=== PATIENT | male | born 1955 | race Caucasian/White ===

== ENCOUNTER 2017-07-03 14:03 | Inpatient (IN) | payer MEDICAID ==
[~2017-07-03] VITALS: Ht 185.4 cm; Wt 82.6 kg
[2017-07-03] MEDS ORDERED: MULT-35 PO (15:59)
[2017-07-03] MEDS ORDERED: METO-387 PO (15:59)
[2017-07-03] MEDS ORDERED: ASPI-999 PO (15:59)
[2017-07-03] MEDS ORDERED: CARB100T6 PO (15:59)
[2017-07-03] MEDS ORDERED: SITA1TBM4 PO (15:59)
[2017-07-03] MEDS ORDERED: TAMS0.4C98 PO (15:59)
[2017-07-03] MEDS ORDERED: LOVA20TA2 PO (15:59)
[2017-07-03] MEDS ORDERED: PIOG15TA22 PO (15:59)
[2017-07-03] MEDS ORDERED: LISI-552 PO (15:59)
--- NOTE | 2017-07-03 16:36 | PM&R Post Admission Assessment ---
Post Admission Physician Asses The preadmission screen agrees with the post admission assessment that the patient is a good candidate for inpatient rehabilitation. The patient will have a comprehensive program of inpatient rehabilitation with a goal of maximizing level of functional independence prior to discharge home with family and HHC. The patient will have PT/OT ninety minutes per day, each discipline, five days a week for gait, strengthening, conditioning, balance, ADLs, any patient/family/caregiver training as necessary. Speech therapy to do cognitive assessment and treat as indicated. Rehabilitation nursing to assist with bowel, bladder, skin, wound care, medication administration, pain management. Form Worker to assist with discharge planning, community reentry. SCD's for DVT prophylaxis. He appears to be well motivated to participate in three hours of therapy a day. He should be able to tolerate three hours of therapy a day from a medical and orthopedic standpoint. He should benefit from the three hours of therapy a day. He has a reasonable discharge plan, reasonable discharge rehabilitation goals and a supportive family. He has various comorbidities that need to be closely monitored with medications and treatments adjusted on a daily basis as needed. These include: etoh abuse Prior TBI s/p fall 2011 Post traumatic sz disorder DM HTN HLP Tobacco use Barriers to discharge for this patient who had been independent prior to this are for him to be modified independent to supervision for ADLs and mobility skills prior to discharge home with family and HHC, so as to lessen the burden of the caregivers. Risks for this patient include: 1. Fall 2. Fracture 3. DVT 4. Pulmonary embolism 5. Wound infection 6. Skin breakdown 7. Contractures 8. Poorly controlled pain 9. Urinary retention 10. UTI 11. Respiratory infection 12. Aspiration 13. recurrent Sz 14.Poorly controlled HTN 15. Poorly controlled DM Estimated Length of Stay: 17 days Prognosis: Rehab prognosis appears good for goal of discharge home with family and HHC modified independent to supervision for ADLs and mobility skills. BLANCA ZEPEDA MD Jul 03, 2017 16:36
[2017-07-03 17:00] VITALS: BP 144/76
[2017-07-03] MEDS ORDERED: PNEUMOCOCCAL VACCINE 25 MCG/0.5 ML VIAL IM ONE (17:15)
[2017-07-03] MEDS ORDERED: INFLUENZA TRIvalent 2017-2018 0.5 ML/45 MCG SYR IM ONE (17:15)
[2017-07-03] MEDS: HYDROcodone/APAP 5 MG/325 MG (LORTAB) TAB PO PRN (17:45)
[2017-07-03] MEDS: ALFUZOSIN HCL 10 MG TAB (UROXATRAL) PO SCH (17:45)
[2017-07-03] MEDS ORDERED: TAMSULOSIN 0.4 MG (FLOMAX) CAP PO SCH (18:00)
--- NOTE | 2017-07-03 18:18 | HISTORY AND PHYSICAL ---
DATE OF SERVICE: CHIEF COMPLAINT: Difficulty walking. HISTORY OF PRESENT ILLNESS: The patient is a 62-year-old male with a history of posttraumatic seizure disorder falls with most recent fall accounting for a closed fracture of the right hip. The patient was admitted to outside hospital in [place], [place] for repair with orthopedics. The patient had an elevated blood alcohol level upon initial assessment and has a history of ethanol abuse and tobacco use. The patient had been in assisted living unit until recently then went to his own apartment, apparently fell and ETOH Blod levels indicated that he was intoxicated. PLOF: He had been independent prior to this. Currently, he requires assistance for his ADLs and mobility skills. He is max assist for transfers from wheelchair to bed. Hospitalist from outside facility discussed case with Dr. Wesley today.He is min assist for upper body dressing and max assist for lower body dressing. PAST MEDICAL HISTORY: Posttraumatic seizure disorder on Tegretol,associated with a fall on ice with a left skull fracture 2012 with intracerebral hemorrhage, subarachnoid hemorrhage. Diabetes mellitus, cognitive deficit due to above TBI, hyperlipidemia, hypertension. PAST SURGICAL HISTORY: As per above. ALLERGIES: Lactose. FAMILY HISTORY: Noncontributory. SOCIAL HISTORY: Lives alone, has a brother in [place], [place]. He is retired after 25 years working for [employer] in [place].HX of ETOH abuse.He has an apartment at the [facility] in [facility] REVIEW OF SYSTEMS: Ten point review of systems significant for hip pain, falls, ethanol abuse, gait imbalance, memory loss. MEDICATIONS: Hydrocodone/APAP 5/325 one tablet p.o. every 8 hours p.r.n. for pain, ASA 81 mg p.o. daily, Tegretol 100 mg p.o. daily, Janumet XR one tablet p.o. b.i.d., lisinopril 20 mg p.o. every day, lovastatin 20 mg p.o. at bedtime, Toprol-XL 25 mg p.o. daily, multivitamins 1 tablet p.o. daily, Actos 15 mg p.o. daily, Flomax 0.4 mg p.o. daily. PHYSICAL EXAMINATION: GENERAL: Significant for a male appearing who is stated age, alert and oriented, no acute distress, sitting at the side of bed. VITAL SIGNS: Within normal limits. He is afebrile. HEENT: Vision, speech, hearing, grossly intact. No oral lesion is noted. There is a well-healed surgical scar on the skull present. NECK: Supple without mass. HEART: Regular rhythm. LUNGS: Clear. ABDOMEN: Soft, nontender. Bowel sounds present. EXTREMITIES: No leg edema, no calf tenderness. Incision site left hip covered with dressing. MUSCULOSKELETAL: The patient has functional active range of motion all for both upper extremities, left lower extremity. Right lower extremity limited hip due to recent fracture and repair. He is able to active plantar and dorsiflex at the right ankle and move his right knee, but with considerable guarding due to pain in his right hip. NEUROLOGIC: He is alert and oriented, but reports mild memory loss. Sensation is grossly intact to touch. Strength in RT upper limb is 4/5, left upper Limb 3 +/5 . Right lower LIMB hip flex 2/5 Quads 3/5 Dorsiflex 4/5 LLE 4+/5. IMPRESSION: 1. Ambulatory dysfunction, secondary to fall with resulting proximal left femur fracture, status post IM nailing outside [place], [place]. 2. Ethanol abuse. 3. Tobaccoism. Currently abstaining. 4. Diabetes mellitus on medication type 2. 5. Hypertension, controlled with medication. 6. History of TBI with seizure disorder with residual cognitive deficit in terms of memory and also gait imbalance. 7. Hyperlipidemia, on statin. PLAN: The patient will have comprehensive program of inpatient orthopedic rehabilitation with the goal of maximizing level of functional independence prior to discharge quite possibly back to an assisted living facility rather than to independent living at his home with [facility]. The patient will have PT, OT 90 minutes per day each discipline, five days a week for gait, strengthening, conditioning, balance , ADLs, any patient family caregiver training necessary, adaptive equipment training necessary, course for his behavioral health to assess and halfway house counselor regarding ethanol abuse. Speech therapy to do cognitive assessment, treat as indicated. Rehabilitation nursing to assist with bowel, bladder skin, wound care, medication administration, pain management. commissioner of relocation services to assist with discharge planning, community reentry. We will monitor Accu-Cheks and adjust medications as necessary. Monitor hypertension and adjust medications as necessary, therapy with cardiac fall and seizure precautions. SCDs for DVT prophylaxis.Consult DR Stringer for medical management. ESTIMATED LENGTH OF STAY: 17 days. PROGNOSIS: Rehab prognosis appears good for goals of discharging to home with family and home health care modified independent to supervision of ADLs or mobility skills. DIET: Carb consistent. CODE STATUS: Full code. Note: The patient may benefit from returnibg to an assisted living setting upon discharge due to his HX of mild TBI,Falls and Etoh abuse. The patient will have follow up with his orthopedist in [place] upon discharge from rehabilitation. Job ID: [id number] DocumentID: [id number] Dictated Date: 07/03/2017 16:46:40 Hand Binder Cutter Date: 07/03/2017 18:17:40 Dictated By: BLANCA WESLEY MD MTDD
[2017-07-03] MEDS: metFORMIN XR 500 MG (GLUCOPHAGE XR) TAB PO SCH (18:46)
[2017-07-03] MEDS: sitaGLIPtin 50 MG (NON-FORMULARY) TAB PO SCH (18:46)
[2017-07-03] MEDS: SIMvastatin 10 MG (ZOCOR) TAB PO SCH (20:27)
[2017-07-04] MEDS: HYDROcodone/APAP 5 MG/325 MG (LORTAB) TAB PO PRN ×4 (03:09→20:27)
[2017-07-04 05:32] VITALS: BP 116/67
[2017-07-04] MEDS: MULTIVIT W/MINERALS TAB (THERAGRAN M) PO SCH (06:12)
[2017-07-04] MEDS: metFORMIN XR 500 MG (GLUCOPHAGE XR) TAB PO SCH ×2 (06:12→16:05)
[2017-07-04] MEDS: PIOGLITAZONE 30MG (ACTOS) TAB PO SCH (06:12)
[2017-07-04] MEDS: sitaGLIPtin 50 MG (NON-FORMULARY) TAB PO SCH ×2 (06:13→16:06)
[2017-07-04] MEDS: lisINopril 20 MG (ZESTRIL) TAB PO SCH (08:28)
[2017-07-04] MEDS: ASPIRIN E.C. 81 MG (ECOTRIN) TAB PO SCH (08:28)
[2017-07-04] MEDS: carBAMazepine 100 MG (TEGretol) CHEW PO SCH (08:28)
[2017-07-04] MEDS ORDERED: carBAMazepine 200 MG (TEGretol) TAB PO SCH (09:00)
--- NOTE | 2017-07-04 10:28 | Occupational Therapy Eval ---
OT Evaluation-General/PLF Medical Diagnosis Admission Date Jul 03, 2017 at 17:11 Medical Diagnosis: Right femur fx, IM nail Onset Date: Jun 30, 2017 Therapy Diagnosis Therapy Diagnosis: Decreased ADL skills Height/Weight Height (Feet): 6 Height (Inches): 1.00 Weight (Pounds): 191 Weight (Ounces): 2.0 Precautions Precautions/Isolations: Seizure, Fall Prevention, Standard Precautions Safety Interventions: Bed Exit Alarm, Reorient-PRN Weight Bear Status Weight Bearing Restriction: Weight Bearing/Tolerated Referral Physician: Dr. Wesley Referral Reason: Activity Tolerance, Self Care, Evaluation/Treatment, Strengthening/ROM Medical History Pertinent Medical History: HTN Additional Medical History Head injury in 2011, post seizure disorder, alcohol disorder, aphasia, insomnia , shoulder surgeries (R) Current History Pt. states that he was walking to get a coffee pot and coffee, and fell. States that he made it back to his apartment, but had increasing pain. States that his brother found him on the floor the next morning. Reviewed History: Yes Social History Home: Apartment Current Living Status: Alone Entry Into Home: Level Entry ADL-Prior Level of Function ADL PLOF Comments Pt. states that he was independent with daily skills. States that until recently, he had a guardian because of his head injury. States that he recently moved into the [facility] (low income apartments) in [place]. He states that he was independent with all daily skills. Has a brother that is supportive per pt. DME/Equipment: Shower Occupation: Pt. is not employed. States that he let his drivers license lapse. Drive Self: No OT Current Status Subjective Pt. reports pain in right hip with any movement. Reports 10/10 pain. Has already had pain medication. Appearance Pt. is in bed. Agrees to treatment. Mental Status/Objective Patient Orientation: Person Due to previous brain injury, pt. has difficulty remembering things, per his report. States that he often writes things down. Pt. has difficulty getting some information out, and often has to be re-directed. He also gets over stimulated easily per his report, and will ask for only one question at a time, or only one person to speak at a time. At times, it is difficult to get information from pt. as he has difficulty staying on task. Current Hand Dominance: Right Upper Extremity ROM Pt. demonstrates bilateral UE ROM WFL. However, reports that his right shoulder is "limited" from all the surgeries he has had. Upper Extremity Coordination intact Upper Extremity Strength 4/5 right UE 3+/5 left UE throughout ADL-Treatment Functional Davie Measure 0=Not Assessed/NA 4=Minimal Assistance 1=Total Assistance 5=Supervision or Setup 2=Maximal Assistance 6=Modified Davie 3=Moderate Assistance 7=Complete IndependenceIRFPAI Quality Coding Scale 6 Independent with activity with or without an assistive device 5 Patient requires set up or clean up by helper. Patient completes activity by themselves 4 Supervision or touching assist (CGA). [place] provide cues , steadying assist 3 The helper provides less than half the effort to complete the activity 2 The helper provides more than half the effort to complete the activity 1 Dependent. The helper does all the effort to complete an activity 7 Patient refused to complete or attempt activity 9 The patient did not perform the activity before the current illness or injury 88 Not attempted due to Medical conditions or safety concerns Bathing (FIM): 3 (Pt. requires assist to wash right foot and rear zakiya area in stance in shower. Also requires standing assist for balance during shower task. ) Shower/Bathe Self (QC): 3 Upper Body Dressing (FIM): 5 (SBA with shirt.) Upper Body Dressing (QC): 4 Lower Body Dressing (FIM): 2 (Pt. is able to doff pants with mod assist. Requires max assist to doff and don socks, and max assist to don pants. Pt. is able to assist with pulling pants over hips in stance, but fatigues easily and has difficulty with balance when not fully holding walker.) Lower Body Dressing (QC): 2 On/Off Footwear (QC): 2 Toileting (FIM): 2 (Pt. requires assist to pull down pants and min assist to pull them up. Unable to reach rear zakiya area after toileting.) Toileting Hygiene (QC): 2 Transfers (B, C, W/C) (FIM): 3 Toilet/Commode Transfer (FIM): 3 Toilet Transfer (QC): 3 Shower Transfer (FIM): 3 (Pt. requires increased time and cues, as well as mod assist overall to transfer into shower. Pt. has difficulty with hand placement and anxiety while getting into shower.) Other Treatments OT/PT co-treated due to pt fatigue and need for skilled treatment. OT focused on ADL training, hand placement, and goal education while PT focused on transfer training, mobility training, and ambulation/foot placement. Pt. requires cues to sequence and increased time to process. Pt. up in chair after treatment. All needs met. Education OT Patient Education: Correct positioning, Modified ADL techniques, Progress toward Goal/Update tx plan, Purpose of tx/functional activities, Reviewed precautions, Rehab process, Safety issues, Transfer techniques, W/C management Teaching Recipient: Patient Teaching Methods: Demonstration Response to Teaching: Verbalize Understanding, Return Demonstration OT Short Term Goals Short Term Goals Time Frame: Jul 11, 2017 Eating(FIM): 5 Grooming(FIM): 5 Bathing(FIM): 4 Upper Body Dressing(FIM): 5 Lower Body Dressing(FIM): 4 Toileting(FIM): 4 Transfers (B,C,W/C) (FIM): 4 Toilet/Commode Transfer(FIM): 4 Shower Transfer(FIM): 4 Additional Short Term Goals: 1-Demonstrate ADL Tasks, 2-Verbalize Understanding , 3-ImproveStrength/Roney 1=Demonstrate adherence to instructed precautions during ADL tasks. 2=Patient will verbalize/demonstrate understanding of assistive devices/ modifications for ADL. 3=Patient will improve strength/tolerance for activity to enable patient to perform ADL's. OT Treasury Assistant Goals Senior Care Goals Time Frame: Jul 25, 2017 Eating (FIM): 6 Eating (QC): 6 Groomin Oral Hygiene (QC): 5 Bathing(FIM): 5 Shower/Bathe Self (QC): 5 Upper Body Dressing(FIM): 5 Upper Body Dressing (QC): 5 Lower Body Dressing(FIM): 5 Lower Body Dressing (QC): 5 On/Off Footwear (QC): 5 Toileting(FIM): 6 Toileting Hygiene (QC): 6 Transfers (B,C,W/C) (FIM): 5 Toilet/Commode Transfer(FIM): 6 Toilet/Commode Transfer (QC): 6 Shower Transfer(FIM): 5 Additional Goals: 1-Demonstrate ADL Tasks, 2-Verbalize Understanding, 3- ImproveStrength/Roney 1=Demonstrate adherence to instructed precautions during ADL tasks. 2=Patient will verbalize/demonstrate understanding of assistive devices/ modifications for ADL. 3=Patient will improve strength/tolerance for activity to enable patient to perform ADL's. OT Education/Plan Problem List/Assessment Assessment: Decreased Activ Tolerance, Decreased Safety Aware, Decreased UE Strength, Dependent Transfers, Impaired Bed Mobility, Impaired Cognition, Impaired Funct Balance, Impaired I ADL's, Impaired Self-Care Skills Discharge Recommendations Plan/Recommendations: Continue POC Therapy D/C Recommendations: Bath Aide, Home w/ Family Support, Occupational Therapy Home Care, Scheduled Assistance Equpiment Recommendations-D/C: Hip Kit Barriers to Progress Cognition and pain Target Placement Pt. would like to return home to [facility]. Treatment Plan/Plan of Care Treatment,Training & Education: Yes Patient would benefit from OT for education, treatment and training to promote independence in ADL's, mobility, safety and/or upper extremity function for ADL' s. Plan of Care: ADL Retraining, Caregiver Training, Functional Mobility, Group Exercise/Act as Ind, UE Funct Exercise/Act Treatment Duration: Jul 25, 2017 Frequency: At least 5 of 7 days/Wk (IRF) Estimated Hrs Per Day: 1.5 hours per day Agreement: Yes Rehab Potential: Good Time/GCodes Start Time: 08:25 Stop Time: 10:10 Total Time Billed (hr/min): 92 Billed Treatment Time 8213-4804 OT eval 1, EVM x 12 minutes [id number] PT eval 13 minutes no charge [id number] 80 minutes, ADL x 80minutes co-treat with PT. Please see note above for designated roles. ASHELY MARTINEZ OT Jul 04, 2017 10:28
[2017-07-04] MEDS ORDERED: MILK OF MAGNESIA 400 MG/5 ML 30 ML UDC PO PRN (10:30)
--- NOTE | 2017-07-04 13:35 | Physical Therapy Evaluation ---
PT Evaluation-General Medical Diagnosis Admission Date Jul 03, 2017 at 17:11 Medical Diagnosis: Right femur fx, IM nail Onset Date: Jun 30, 2017 Therapy Diagnosis Therapy Diagnosis: weakness; abn gait Height/Weight Height (Feet): 6 Height (Inches): 1.00 Weight (Pounds): 191 Weight (Ounces): 2.0 Precautions Precautions/Isolations: Seizure, Fall Prevention, Standard Precautions Weight Bear Status Right Lower Extremity: Right Weight Bearing/Tolerated Left Lower Extremity: Left Full Weight Bearing Referral Physician: Dr. Wesley Reason for Referral: Evaluation/Treatment Medical History Pertinent Medical History: Alcoholism, DM, HTN, TBI Additional Medical History Post traumatic seizure disorder due to TBI in 2011; right hemiparesis due to TBI ; ETOH abuse Current History Pt had been living in an RETIREMENT and had moved to his own apartment; he was only there 1 day and sustained a fall that resulted in a right hip fracture; post IM nailing. Reviewed History: Yes Social History Home: Apartment Current Living Status: Alone Entry Into Home: Level Entry Prior/Core FIM Prior Level of Function Functional [place] Measure 0=Not Assessed/NA 4=Minimal Assistance 1=Total Assistance 5=Supervision or Setup 2=Maximal Assistance 6=Modified [place] 3=Moderate Assistance 7=Complete [place] Bed Mobility: 7 Transfers (B,C,W/C) (FIM): 7 Gait: 7 PT Evaluation-Current Subjective Pt talkative throughout treatment and gives a detailed history. Agreeable to PT. Post treatment, pt reports, "Im exhausted." Pt does report that he has STM deficits and often writes things down to help him remember. Pain Numeric Pain Scale: 7 Location: Right Location Body Site: Hip Pain Description: Stabbing Pt/Family Goals Return to his apartment in [place]. Objective Patient Orientation: Person, Place, Time, Situation Problem Solving: Fair TBI in 2011; delayed processing at times; easily overwhelmed; talks slowly with much detail ROM/Strength ROM Lower Extremities WFL; painful on the right Strenght Lower Extremities Left LE strength is grossly 4+/5; right DF is 4/5; hip flexion 2/5; quads 3/5; hamstring 3/5 Sensory Vision: Functional Hearing: Functional Hand Dominance: Right Sensation Right Lower Extremit: Intact Sensation Left Lower Extremity: Intact Transfers Functional [place] Measure 0=Not Assessed/NA 4=Minimal Assistance 1=Total Assistance 5=Supervision or Setup 2=Maximal Assistance 6=Modified [place] 3=Moderate Assistance 7=Complete IndependenceIRFPAI Quality Coding Scale 6 Independent with activity with or without an assistive device 5 Patient requires set up or clean up by helper. Patient completes activity by themselves 4 Supervision or touching assist (CGA). [place] provide cues , steadying assist 3 The helper provides less than half the effort to complete the activity 2 The helper provides more than half the effort to complete the activity 1 Dependent. The helper does all the effort to complete an activity 7 Patient refused to complete or attempt activity 9 The patient did not perform the activity before the current illness or injury 88 Not attempted due to Medical conditions or safety concerns Transfers (B, C, W/C) (FIM): 3 Scootin Rollin Roll Left to Right (QC): 4 Supine to/from Sit: 3 (asssit witb legs to move to the side of the bed) Sit to/from Stand: 3 (mod assist to stand and skilled cues for sequencing. Heavy cuing required. ) Sit to Lying (QC): 3 Lying to Sitting/Side of Bed(Q: 3 Sit to Stand (QC): 3 Chair/Qza-tk-Mpmsv Xfer(QC): 3 Car Transfer (QC): 3 Pt requires heavy cues to sequence transfer and for safety awareness. Gait Does the Patient Walk?: Yes Mode of Locomotion: Walk Anticipated Mode of Locomotion: Walk Gait (FIM): 2 Distance (FIM): 1=up to 49 ft Walk 10 feet (QC): 4 Walk 50 ft with 2 Turns(QC): 88 (uanble to go this far) Walk 150 ft (QC): 88 Walking 10ft/uneven surface-QC: 88 (unsafe to attempt at this time; fall risk) Distance: 10 ft Gait Level of Assist: 4 (min assist for balance and safety) Gait Persons Needed: 1 Gait Assistive Device: FWW Comments/Gait Description Pt has trouble putting right foot down and prefers to hop with FWW; skilled cues to try to put at least his toes down but he has difficulty keeping his foot on the ground due to complaints of pain. Pt hopped;ambulated 10 ft x 2 wtih FWW with min assist; he hopped in the bathroom to move about the bathroom in small space with FWW. Pt hopped in the // bars x 8 ft with CGA; again, cues to put his right foot down, but he was hesitant to do so. Wheelchair Training Does the Pt Use a Wheelchair?: Yes Wheelchair (FIM): 4 Wheelchair Distance (FIM): 3=150 ft Wheel 50 ft with 2 turns (QC): 4 Wheel 150 ft (QC): 4 Type of Wheelchair: Manual Stairs Stairs (FIM): 0 (unsafe and unable to attempt; fall risk) 1 Step (curb) (QC): 88 4 Steps (QC): 88 12 Steps (QC): 88 If not tested on admit;explain unsafe; fall risk; does not possess the strength or safety to perform Balance Sitting Static: Good Sitting Dynamic: Good Standing Static: Fair Standing Dynamic: Fair Picking up an Object (QC): 88 (unsafe to attempt) Treatment Co treat with OT; pt is post TBI and requires extra cues and skilled intervention to complete tasks. Pt was mobile in his room, showered and dressed ; toileted and worked on mobility in the wheelchair as well as in the // bars. Co treatment indicated as OT addressed placement and use of UE's as well as ADL care and participation, PT addressed transfers on multiple surfaces such as the toilet and shower bench. Pt somewhat impulsive and it best fit to have 2 skilled clinicians for safety education and technique to best meet the needs of the patient. Assessment/Needs Pt presents post fall at his apartment with a repaired right hip fracture. He needs much assist with all functional mobility, tranfers, gait, safety and problem solving. He will benefit from skilled PT intervnetion to work on functional mobility and strength as well as safety to allow him to return home as before. He has potential to make good gains throughout the course of care; in fact, during the course of evaluation and treatment this date, his transfers improved as well as his sequencing and participation. He has residual sterngth deficits and impaired safety due to TBI but feel that skilled PT will address these deficits and impact him positively. Rehab Potential: Good PT Short Term Goals Short Term Goals Time Frame: Jul 18, 2017 Transfers (B,C,W/C) (FIM): 4 Gait (FIM): 4 Distance (FIM): 3=150 ft Gait Assistive Device: FWW Wheelchair (FIM): 6 Wheelchair distance (FIM): 3=150 ft PT Wine Consultant Goals Wine Consultant Goals PT Shelter Goals Time Frame: Aug 01, 2017 Transfers (B,C,W/C) (FIM): 6 Sit to Lying (QC): 6 Lying-Sitting on Side/Bed(QC): 6 Sit to Stand (QC): 6 Roll Left to Right (QC): 6 Chair/Tut-zu-Ifibp Xfer(QC): 6 Car Transfer (QC): 6 Does the Patient Walk: Yes Gait (FIM): 6 Gait distance (FIM): 3=150 ft Walk 10 feet (QC): 6 Walk 10ft-Uneven Surface(QC): 6 Walk 50ft with 2 Turns (QC): 6 Walk 150 ft (QC): 6 Gait Level of Assist: 6 Gait Assistive Device: FWW Does the Pt use WC or Scooter?: No Stairs (FIM): 6 # of Steps: 12 1 Step (curb) (QC): 6 4 Steps (QC): 6 12 Steps (QC): 6 Picking up an Object (QC): 6 All LTG's set withn plan for pt to discharge to an apartment living alone. PT Plan Problem List Problem List: Activity Tolerance, Functional Strength, Safety, Balance, Gait, Transfer, Bed Mobility Treatment/Plan Treatment Plan: Continue Plan of Care Treatment Plan: Bed Mobility, Education, Functional Activity Roney, Functional Strength, Group Therapy, Gait, Safety, Therapeutic Exercise, Transfers Treatment Duration: Aug 01, 2017 Frequency: At least 5 of 7 days/Wk (IRF) Estimated Hrs Per Day: 1.5 hours per day Patient and/or Family Agrees t: Yes Safety Risks/Education Patient Education: Gait Training, Transfer Techniques, Safety Issues Teaching Recipient: Patient Teaching Methods: Demonstration, Discussion Response to Teaching: Reinforcement Needed Discharge Recommendations Therapy D/C Recommendations: Physical Therapy Home Care Time/GCodes Time In: 837 Time Out: 1010 Total Billed Treatment Time: 93 Total Billed Treatment visit EVM 13 ([id number]) FA 80 ([id number]) co treat with OT MG URIBE PT Jul 04, 2017 13:35
[2017-07-04] MEDS: ALFUZOSIN HCL 10 MG TAB (UROXATRAL) PO SCH (17:07)
[2017-07-04 18:10] VITALS: BP 106/70
[2017-07-04] MEDS: SIMvastatin 10 MG (ZOCOR) TAB PO SCH (20:27)
[2017-07-04] MEDS: SENNA W/DOCUSATE (SENOKOT S) TABLET PO SCH (20:27)
[2017-07-05 05:11] VITALS: BP 129/72
[2017-07-05] MEDS: sitaGLIPtin 50 MG (NON-FORMULARY) TAB PO SCH ×2 (06:30→17:12)
[2017-07-05] MEDS: metFORMIN XR 500 MG (GLUCOPHAGE XR) TAB PO SCH ×2 (06:30→17:12)
[2017-07-05] MEDS: PIOGLITAZONE 30MG (ACTOS) TAB PO SCH (06:30)
[2017-07-05] MEDS: MULTIVIT W/MINERALS TAB (THERAGRAN M) PO SCH (06:34)
[2017-07-05] MEDS: SENNA W/DOCUSATE (SENOKOT S) TABLET PO SCH ×2 (07:25→20:23)
[2017-07-05] MEDS: carBAMazepine 100 MG (TEGretol) CHEW PO SCH (08:06)
[2017-07-05] MEDS: HYDROcodone/APAP 5 MG/325 MG (LORTAB) TAB PO PRN ×2 (08:06→17:12)
[2017-07-05] MEDS: lisINopril 20 MG (ZESTRIL) TAB PO SCH (08:06)
[2017-07-05] MEDS: ASPIRIN E.C. 81 MG (ECOTRIN) TAB PO SCH (08:06)
[2017-07-05] MEDS: ALFUZOSIN HCL 10 MG TAB (UROXATRAL) PO SCH (17:12)
[2017-07-05 18:21] VITALS: BP 128/78
[2017-07-05] MEDS: SIMvastatin 10 MG (ZOCOR) TAB PO SCH (20:25)
[2017-07-06 05:53] VITALS: BP 117/77
[2017-07-06] MEDS: sitaGLIPtin 50 MG (NON-FORMULARY) TAB PO SCH (06:49)
[2017-07-06] MEDS: PIOGLITAZONE 30MG (ACTOS) TAB PO SCH (06:49)
[2017-07-06] MEDS: HYDROcodone/APAP 5 MG/325 MG (LORTAB) TAB PO PRN ×2 (06:49→12:25)
[2017-07-06] MEDS: metFORMIN XR 500 MG (GLUCOPHAGE XR) TAB PO SCH ×2 (06:49→17:17)
[2017-07-06] MEDS: MULTIVIT W/MINERALS TAB (THERAGRAN M) PO SCH (06:49)
[2017-07-06] MEDS: SENNA W/DOCUSATE (SENOKOT S) TABLET PO SCH ×2 (09:59→20:26)
[2017-07-06] MEDS: ASPIRIN E.C. 81 MG (ECOTRIN) TAB PO SCH (09:59)
[2017-07-06] MEDS: carBAMazepine 100 MG (TEGretol) CHEW PO SCH (09:59)
[2017-07-06] MEDS: lisINopril 20 MG (ZESTRIL) TAB PO SCH (09:59)
--- NOTE | 2017-07-06 10:51 | ST Cognitive Linguistic Eval ---
Speech Evaluation-General Medical Diagnosis Right femur fx, IM nail Onset Date: Jun 30, 2017 Therapy Diagnosis Therapy Diagnosis: Cognitive Linguistic Skills Grossly WNL Precautions Precautions/Isolations: Fall Prevention, Standard Precautions Referral Referring Physician: Dr. Kwaku Wesley Reason for Referral: Evaluation/Treatment Cognitive Evaluation Medical History Pertinent Medical History: Alcoholism, DM, HTN, TBI Seizure Reviewed History: Yes Social History Current Living Status: Alone Speech PLF-Current Status Prior Level of Function Per patient, he experiences short-term memory difficulty following a TBI in 2011. The patient denied additional difficulties with speech, language or cognition. Subjective The patient was recently admitted to [facility] following a right hip fracture. The patient greeted the clinician appropriately and was agreeable to participation in the speech, language, and cognitive evaluation. Language Eval: Auditory Comprehends Simple Yes/No Ques: Functional Indent/Objects [place]: Functional Ident/Pics in [place]: Functional Follows 1-Step Commands: Functional Follows Complex Directions: Functional (Repetition required.) Follows General Conversations: Functional (Redirection to topic intermittently required.) Language Eval: Verbal Language Completes Spontaneous Greeting: Functional Produces Auto, Serial Info: Functional Imitates Simple Words/Phrases: Functional Word Finding: Functional Requests Basic Needs: Functional States Basic Personal Info: Functional Expresses Complex Ideas: Functional The patient displays intermittent delays and pauses in responses. Cognitive Patient Orientation The patient is independently oriented to month, day of week, year, and city. Objective Cognitive Domain Attention: Mild (The patient appears impulsive and requires redirection to task.) Memory: Mild (Per patient, report. The patient recalled three of three items following a five minute delay.) Problem Solving: Mild Objective Impression The patient displays mild cognitive deficits, however, the impairments appear related to a previous TBI (2011). The patient is able to complete ADL's with intermittent redirection to task. Communication/Social Cognition Comprehension: 5 Expression: 5 Social Interaction: 5 Problem Solvin Memory: 5 Speech Patient Assess Expression of Ideas/Wants: Exhibits (3) Understanding [place] Content: Usually Understands (3) Brief Interview-Mental Status: Yes Repetition of Three Words: Three (3) Temporal Orientation: Year: Correct (3) Temporal Orientation: Month: Accurate within 5 days(2) Temporal Orientation: Day: Correct (1) Recall : Wear to say "Sock": Yes,after cueing (1) Recall : Color: Yes, no cue required (2) Recall : Bed: Yes, no cue required (2) Speech-Plan Treatment Plan Speech Therapy Treatment Plan: Discontinue ST Evaluation, only. Frequency: Modified Program (IRF) Estimated Hrs Per Day: Other Rehab Potential: Good Safety Risks/Education Teaching Recipient: Patient Teaching Methods: Discussion Response to Teaching: Verbalize Understanding Education Topics Provided: Results, Plan of Care, Recommendations Time Speech Therapy Time In: 10:15 Speech Therapy Time Out: 10:40 Total Billed Time: 25 Billed Treatment Time 1, BRETT COON Jul 06, 2017 10:51
--- NOTE | 2017-07-06 11:42 | Physical Therapy Daily Note ---
PT Daily Note-Current Subjective Pt is seen after OT and is in therapy gym in [facility]. Pt agrees to therapy. Pt has no pain in the RLE when it is not moving. Pain Numeric Pain Scale: 9 Location: Right Location Body Site: Hip Comment: Pt winces and groans in pain during exercises. Appearance Pt is sat in [facility] in room at end of session and all needs are met. Remote and phone are within reach. Transfers Functional [place] Measure 0=Not Assessed/NA 4=Minimal Assistance 1=Total Assistance 5=Supervision or Setup 2=Maximal Assistance 6=Modified [place] 3=Moderate Assistance 7=Complete IndependenceIRFPAI Quality Coding Scale 6 Independent with activity with or without an assistive device 5 Patient requires set up or clean up by helper. Patient completes activity by themselves 4 Supervision or touching assist (CGA). [place] provide cues , steadying assist 3 The helper provides less than half the effort to complete the activity 2 The helper provides more than half the effort to complete the activity 1 Dependent. The helper does all the effort to complete an activity 7 Patient refused to complete or attempt activity 9 The patient did not perform the activity before the current illness or injury 88 Not attempted due to Medical conditions or safety concerns Transfers (B, C, W/C) (FIM): 3 Scootin Rollin Sit to/from Stand: 4 Pt requires max A to min A with transfers depending. Rquires skilled cuing for safety and sequencing as well as hand placement. Weight Bearing Right Lower Extremity: Right Weight Bearing/Tolerated Left Lower Extremity: Left Full Weight Bearing Gait Training Does the Patient Walk?: Yes Gait (FIM): 1 Distance: 25 feet Gait Level of Assist: 1 Gait Persons Needed: 1 Gait Assistive Device: FWW Pt avoids contacting RLE on the ground. With verbal cues, he steps with both feet. Wheelchair Training Does the Pt Use a Wheelchair?: Yes Wheelchair (FIM): 1 Distance: 25 feet Wheelchair Level of Assist: 1 Type of Wheelchair: Manual Pt is able to propel [facility] but is not managing footplates or brakes independently. Exercises Supine Ex: Ankle pumps (30 sec x2), Short Arc Quads (30 sec x2), Hip abd/add ( 30 sec x1) Standing: Sit to Stand (5 repetitons), Weight shifts (Pre gait activity: Lateral 60 sec x1, Forward/Backward 60 sec x1, Diagonal 30 sec x1) NuStep Minutes: 15 NuStep Workload: 1 Treatments Functional activity, Gait training, Exercises Assessment Current Status: Good Progress Pt bev is pain during exercises. He chooses to hop, avoiding contact of the RLE with the ground. He requires max A with managing BLE from chair to supine position. PT Short Term Goals Short Term Goals Time Frame: Jul 18, 2017 Transfers (B,C,W/C) (FIM): 4 Gait (FIM): 4 Distance (FIM): 3=150 ft Gait Assistive Device: FWW Wheelchair (FIM): 6 Wheelchair distance (FIM): 3=150 ft PT Alf Goals Alf Goals PT Alf Goals Time Frame: Aug 01, 2017 Transfers (B,C,W/C) (FIM): 6 Sit to Lying (QC): 6 Lying-Sitting on Side/Bed(QC): 6 Sit to Stand (QC): 6 Rollin Roll Left to Right (QC): 6 Chair/Exl-pu-Szvar Xfer(QC): 6 Car Transfer (QC): 6 Does the Patient Walk: Yes Gait (FIM): 6 Gait distance (FIM): 3=150 ft Walk 10 feet (QC): 6 Walk 10ft-Uneven Surface(QC): 6 Walk 50ft with 2 Turns (QC): 6 Walk 150 ft (QC): 6 Gait Level of Assist: 6 Gait Assistive Device: FWW Does the Pt use WC or Scooter?: No Stairs (FIM): 6 # of Steps: 12 1 Step (curb) (QC): 6 4 Steps (QC): 6 12 Steps (QC): 6 Picking up an Object (QC): 6 PT Plan Problem List Problem List: Activity Tolerance, Functional Strength, Safety, Balance, Gait, Transfer, Bed Mobility, ROM Treatment/Plan Treatment Plan: Continue Plan of Care Treatment Plan: Bed Mobility, Education, Functional Activity Roney, Functional Strength, Group Therapy, Gait, Safety, Therapeutic Exercise, Transfers Treatment Duration: Aug 01, 2017 Frequency: At least 5 of 7 days/Wk (IRF) Estimated Hrs Per Day: 1.5 hours per day Patient and/or Family Agrees t: Yes Safety Risks/Education Patient Education: Transfer Techniques Teaching Recipient: Patient Teaching Methods: Demonstration, Discussion Response to Teaching: Verbalize Understanding, Return Demonstration Reaching back to feel [facility] before sitting. Time/GCodes Time In: 915 Time Out: 1015 Total Billed Treatment Time: 60 Total Billed Treatment 1 visit 10 FA 20 EX 30 GT MG URIBE PT Jul 06, 2017 11:42
--- NOTE | 2017-07-06 11:45 | Occupational Ther Daily Note ---
OT Current Status-Daily Note Subjective Pt. states that he had an "accident" in his sweat pants earlier. States that nursing has already helped him "clean up" and change clothing. Appearance Pt. in bed in ti-shirt and clean long lorrie pants per him. Declines showering or doing another spongebath, as he states that he has already done this. Agrees to work with OT otherwise. Mental Status/Objective Patient Orientation: Person Functional [place] Measure 0=Not Assessed/NA 4=Minimal Assistance 1=Total Assistance 5=Supervision or Setup 2=Maximal Assistance 6=Modified [place] 3=Moderate Assistance 7=Complete [place] ADL-Treatment Functional [place] Measure 0=Not Assessed/NA 4=Minimal Assistance 1=Total Assistance 5=Supervision or Setup 2=Maximal Assistance 6=Modified [place] 3=Moderate Assistance 7=Complete IndependenceIRFPAI Quality Coding Scale 6 Independent with activity with or without an assistive device 5 Patient requires set up or clean up by helper. Patient completes activity by themselves 4 Supervision or touching assist (CGA). [place] provide cues , steadying assist 3 The helper provides less than half the effort to complete the activity 2 The helper provides more than half the effort to complete the activity 1 Dependent. The helper does all the effort to complete an activity 7 Patient refused to complete or attempt activity 9 The patient did not perform the activity before the current illness or injury 88 Not attempted due to Medical conditions or safety concerns Lower Body Dressing (FIM): 5 (Socks only. Please see note below.) Lower Body Dressing (QC): 4 (SBA with socks only.) On/Off Footwear (QC): 5 Transfers (B, C, W/C) (FIM): 4 (CGA for supine-sit, sit-stand, and transfers to chair using walker.) Pt. agrees to work with OT. Requires CGA to move right LE in bed to side of bed. Pt. stands with walker with CGA and transfers to wheelchair. Pt. able to assist with self propulsion in wheelchair to get to therapy gym. Pt. is shown adaptive equipment and practices doffing socks. Pt. states that he already knows how to use this, as he has used this before. States that this therapist showed him this already. Pt. is getting confused on where he saw equipment, as this therapist has not shown him how to use AE yet. Pt. verbalizes that it hurts to bend over, and is difficult. Pt. practices doffing socks with dressing stick, but declines using sock aide to don them. Pt. bends over and puts them back on. When pt. is asked if it hurts, pt. states, "yes, a lot." But then declines using the equipment even though it is explained to him that the purpose of the equipment is to make it easier and less painful. Pt. is also shown toilet tongs, but states, "I will just figure it out, I dont have any problems." Pt. begins to complete armbike for increased UE strengthening. Pt. states that it is "boring." Completed armbike for 6 minutes. Pt. then practices standing at tabletop with CGA and encouraged to weightbear through right LE, with weight shifting. Pt. explains that he can't feel his right foot on the floor, but states that this is not new, and that he has had poor sensation in LE for years. Pt. is up in chair after treatment and participates in physical therapy. Education OT Patient Education: Correct positioning, Exercise program, Modified ADL techniques, Progress toward Goal/Update tx plan, Purpose of tx/functional activities, Reviewed precautions, Rehab process, Transfer techniques, Use of adapted equipment, W/C management Teaching Recipient: Patient Teaching Methods: Demonstration, Discussion Response to Teaching: Verbalize Understanding, Return Demonstration OT Short Term Goals Short Term Goals Time Frame: Jul 11, 2017 Eating(FIM): 5 Grooming(FIM): 5 Bathing(FIM): 4 Upper Body Dressing(FIM): 5 Lower Body Dressing(FIM): 4 Toileting(FIM): 4 Transfers (B,C,W/C) (FIM): 4 Toilet/Commode Transfer(FIM): 4 Shower Transfer(FIM): 4 Additional Short Term Goals: 1-Demonstrate ADL Tasks, 2-Verbalize Understanding , 3-ImproveStrength/Roney 1=Demonstrate adherence to instructed precautions during ADL tasks. 2=Patient will verbalize/demonstrate understanding of assistive devices/ modifications for ADL. 3=Patient will improve strength/tolerance for activity to enable patient to perform ADL's. OT Half-Way Goals Half-Way Goals Time Frame: Jul 25, 2017 Eating (FIM): 6 Eating (QC): 6 Groomin Oral Hygiene (QC): 5 Bathing(FIM): 5 Shower/Bathe Self (QC): 5 Upper Body Dressing(FIM): 5 Upper Body Dressing (QC): 5 Lower Body Dressing(FIM): 5 Lower Body Dressing (QC): 5 On/Off Footwear (QC): 5 Toileting(FIM): 6 Toileting Hygiene (QC): 6 Transfers (B,C,W/C) (FIM): 5 Toilet/Commode Transfer(FIM): 6 Toilet/Commode Transfer (QC): 6 Shower Transfer(FIM): 5 Additional Goals: 1-Demonstrate ADL Tasks, 2-Verbalize Understanding, 3- ImproveStrength/Roney 1=Demonstrate adherence to instructed precautions during ADL tasks. 2=Patient will verbalize/demonstrate understanding of assistive devices/ modifications for ADL. 3=Patient will improve strength/tolerance for activity to enable patient to perform ADL's. OT Education/Plan Problem List/Assessment Assessment: Decreased Activ Tolerance, Dependent Transfers, Impaired Bed Mobility, Impaired Cognition, Impaired Funct Balance, Impaired I ADL's, Impaired Self-Care Skills Discharge Recommendations Plan/Recommendations: Continue POC Therapy D/C Recommendations: Assisted Living Treatment Plan/Plan of Care Treatment,Training & Education: Yes Patient would benefit from OT for education, treatment and training to promote independence in ADL's, mobility, safety and/or upper extremity function for ADL' s. Plan of Care: ADL Retraining, Caregiver Training, Functional Mobility, Group Exercise/Act as Ind, UE Funct Exercise/Act Treatment Duration: Jul 25, 2017 Frequency: At least 5 of 7 days/Wk (IRF) Estimated Hrs Per Day: 1.5 hours per day Agreement: Yes Rehab Potential: Good Time/GCodes Start Time: 08:15 Stop Time: 09:15 Total Time Billed (hr/min): 60 Billed Treatment Time 1, EX x 15minutes, FA x 45minutes ASHELY MARTINEZ OT Jul 06, 2017 11:45
--- NOTE | 2017-07-06 14:49 | Therapy Group Daily Note ---
Therapy Daily Group Note Patient Education Topic Home Safety, Other List Below (w/c safety, TRF and bed mobility techniques) Exercises LE Seated Exercise, UE Exercise Other/Notes Pt. participated in group PT OT session this date. Pt. reqiured min to mod assist to TRF to w/c and was assisted to group via w/c. Pt. was shared his name , where he is from but states he felt it was" too personal to share any further ". Education topics and demonstration this date included transfer techniques and safety and well as bed mobility techniques and wheelchair pressure relief. Pt also participated in seated U&L extremity exercises. Pt. to room after, with mod assist to recliner using FWW, call garcia at hand. Start Time: 13:00 Stop Time: 14:15 Total Billed Treatment Time: 75 Total Billed Treatment 1,GRP ROSY CHIANG PROJECT MANAGER/DESIGN MANAGER Jul 06, 2017 14:48
--- NOTE | 2017-07-06 16:09 | Individualized Plan of Care ---
Individualized Plan of Care Rehab Nursing IPOC Order Admission Date Jul 03, 2017 at 17:11 Current Orders Orders Follow-Up Appointment (07/03/17 14:16) Admission-Acute Rehab Unit (07/03/17 14:56) Cash Poster-Inpt Rehab (07/03/17 14:56) Rehab Nursing Orders-Ipoc (07/03/17 14:56) Physical Therapy Rehab Orders (07/03/17 14:56) Occupational Therapy Rehab Ord (07/03/17 14:56) Speech Therapy Rehab Orders (07/03/17 14:56) Cho 60g/M 1snack (16-2000 Gurdeep) (07/03/17 Dinner) Turn And Reposition Q2HR (07/03/17 14:56) Intake & Output 06,14,22 (07/03/17 14:56) Precautions (Aru) (07/03/17 14:56) Weekly Weight (Lbs) WEEK (07/03/17 14:56) Consult Physician (07/03/17 15:00) Hydrocodone/Apap 5/325 Tablet (Lortab 5 (07/03/17 15:15) Aspirin Enteric Coated Tablet (Ecotrin T (07/04/17 09:00) Carbamazepine Tablet (Tegretol Tablet) (07/04/17 09:00) Lisinopril Tablet (Zestril Tablet) (07/04/17 09:00) Metoprolol Succinate (Xl) Tab (Toprol Xl (07/04/17 09:00) Therapeutic Multivitamin Tab (Vitamins, (07/04/17 07:00) Pioglitazone Tablet (Actos Tablet) (07/04/17 07:00) Tamsulosin Capsule (Flomax Capsule) (07/03/17 18:00) Pharmacy Communication (Pharmacy Communi (07/03/17 15:15) Admission Arrival Bed Request (07/03/17 16:32) Ambulate TID (07/03/17 17:02) Sequential Compression Device 08,20 (07/03/17 17:02) Dvt/Vte Risk - Notifiy Physici (07/03/17 17:02) Edu Tobacco/Smoking Cessation .prn (07/03/17 17:02) Pneumococcal Vaccine (Pnu-Imune 23 Vacci (07/03/17 17:15) Influenza Trivalent [id number] (Afluria (07/03/17 17:15) Alfuzosin Tablet (Uroxatral Tablet) (07/03/17 18:00) Simvastatin Tablet (Zocor Tablet) (07/03/17 21:00) Sitagliptin (Non-Formulary) (Januvia (No (07/03/17 18:00) Metformin Xr Tablet (Glucophage Xr Table (07/03/17 18:00) Accucheck Daily@0600 DAILY@0600 (07/03/17 18:16) Carbamazepine Chewable Tablet (Tegretol (07/04/17 09:00) Patient Visit (07/04/17 ) Pt Eval Moderate Complexity (07/04/17 ) Functional Activities, Ea 15 (07/04/17 ) Senna S Tablet (Senokot S Tablet) (07/04/17 21:00) Magnesium Hydroxide Oral Susp (Mom Oral (07/04/17 10:30) Patient Visit (07/06/17 ) Speech Sound Lang Comp (07/06/17 ) Linagliptin Tablet (Tradjenta Tablet) (07/06/17 17:00) Patient Visit (07/06/17 ) Gait Training, Ea 15 Min (07/06/17 ) Exercise Therap, Ea 15 Min (07/06/17 ) Functional Activities, Ea 15 (07/06/17 ) Patient Visit (07/06/17 ) Therapeutic, Group (07/06/17 ) Rehab Nursing Orders: Diseage Management, Edu in Press Rel Techn, Hydration Management, Nutrition Management, Pain Management Other Nursing Orders: monitor for postop urinary retention and constipation PT IPOC Problem List: Activity Tolerance, Functional Strength, Safety, Balance, Gait, Transfer, Bed Mobility, ROM Treatment Plan: Continue Plan of Care Bed Mobility, Education, Functional Activity Roney, Functional Strength, Group Therapy, Gait, Safety, Therapeutic Exercise, Transfers Treatment Duration: Aug 01, 2017 Frequency: At least 5 of 7 days/Wk (IRF) Estimated Hrs Per Day: 1.5 hours per day OT IPOC Problems: Decreased Activ Tolerance, Dependent Transfers, Impaired Bed Mobility , Impaired Cognition, Impaired Funct Balance, Impaired I ADL's, Impaired Self- Care Skills OT Treatment, Training and Edu: Yes Plan of Care: ADL Retraining, Caregiver Training, Functional Mobility, Group Exercise/Act as Ind, UE Funct Exercise/Act Treatment Duration: Jul 25, 2017 Frequency: At least 5 of 7 days/Wk (IRF) Estimated Hrs Per Day: 1.[address] IPOC Speech Therapy Treatment Plan: Discontinue ST Treatment Duration: Jul 06, 2017 Frequency: Modified Program (IRF) Estimated Hrs Per Day: Other Cash Poster/Case Mgmt Cash Poster/Case Managemen: Discharge Planning, Patient/Family Counseling Physician IPOC Medical Issues being managed closely and that require the 24 hour availability of a physician:pain management DM HTN postraumatic seizure disorder ETOH abuse [facility] code 08.11 Etiologic DX Intertrochanteric frx RT HIP Medical Issues: DVT Prophylaxis, Falls Precautions, Fluid/Electrolyte/ Nutrition Balance, Infection Protection, Pain Management, Wound Care, Other ( List) Brief Synthesis of Preadmission Screen, Post-Admission Evaluation, and Therapy Evaluations: 62 yo male who fell and sustained a rt femur frx reapired at OSH who had been living alone Independently at an apartment in [facility] ETOH abuse HTN DM Posttraumatic seizure disorder as a result of fall 2011 with resulting ICB and residual mild TBI Medical Prognosis: good Anticipated Length of Stay: 07-25-17 Rehab Goals Modified Independent for adls and mobility skills Anticipated discharge destinat: Home with [facility] vs back to an BLANCA BILLINGS MD Jul 06, 2017 16:09
--- NOTE | 2017-07-06 16:21 | PM & R (SOAP) Progress Note ---
Subjective Time Seen by Provider: 15:50 Subjective/Events-last exam Patient was seen in his room thius afternoon Participating in therapies ST has assessed and signed off feel patient at baseline with mild cognitive deficit as a result of TBI 2011.Patient mod assist for transfers Accucheks noted Review of Systems Musculoskeletal: leg pain Objective Exam Last Set of Vital Signs Vital Signs Date Time Temp Pulse Resp B/P (MAP) Pulse Ox O2 Delivery O2 Flow Rate FiO2 07/06/17 05:53 98.6 78 18 117/77 (90) 94 Room Air Capillary Refill : Less Than 3 Seconds I&O Intake and Output 07/06/17 00:00 Intake Total 1510 ml Output Total 2050 ml Balance -540 ml Intake Oral 1510 ml Output Urine Total 2050 ml # Bowel Movements 1 General: Alert, Oriented X3, Cooperative, No Acute Distress HEENT: Atraumatic, PERRLA, EOMI, Mucous Memb Moist/[place] Neck: Supple, No JVD Lungs: Clear to Auscultation Heart: Regular Rate Abdomen: Normal Bowel Sounds, Soft, No Tenderness Extremities: No Edema Skin: Other (incision rt hip healing well) Neuro: Other (Strength funtional BUES and 4+/5 LLE RT HIP flex 2/5 Quads 3/5 Dorsiflexion 4/5 ) Results Lab Laboratory Tests 07/04/17 05:15: Glucometer 176H 07/05/17 06:29: Glucometer 159H 07/06/17 05:45: Glucometer 148H Assessment/Plan Assessment Rt proximal Femur frx s/p IM nailing [place] DM controlled with meds ETOH abuse Tobaccoism curreently abstaining HTN controlled HX TBI 2011 s/p fall with residual mild cognitive deficit HLP on statin Post-traumatic seizure disorder controlled with med Plan Continue PTOT ST has signed off Check Labs Team Conference 07-08-17 BLANCA ZEPEDA MD Jul 06, 2017 16:21
[2017-07-06] MEDS ORDERED: LINAGLIPTIN (TRADJENTA) 5 MG TABLET PO SCH ×2 (17:00)
[2017-07-06] MEDS: ALFUZOSIN HCL 10 MG TAB (UROXATRAL) PO SCH (17:17)
[2017-07-06 17:37] VITALS: BP 131/76
--- NOTE | 2017-07-06 18:52 | Consultation ---
History of Present Illness History of Present Illness Patient Consulted On(therese/time) 07/06/17 18:47 Time Seen by Provider: 18:45 History of Present Illness patient has fracture of the hip with surgery on .. This was done in [facility] . fall Fracture of right hip. Ethanol abuse. Tobacco usage posttraumatic seizure disorder. patient maximum assist area Right hip fracture. History of fracture and intracerebral hemorrhage with left skull fracture area TBI. Diabetes. Hyperlipidemia. hypertension Allergies and Home Medications Allergies Coded Allergies: lactose (Verified Allergy, Unknown, 07/03/17) dexmedetomidine (Verified Adverse Reaction, Unknown, 07/03/17) BRADYCARDIA Home Medications Aspirin 81 Mg Tab.chew, 81 MG PO DAILY, (Reported) Carbamazepine 100 Mg Tab.chew, 100 MG PO DAILY, (Reported) Lisinopril 20 Mg Tablet, 20 MG PO DAILY, (Reported) Lovastatin 20 Mg Tablet, 20 MG PO HS, (Reported) Metoprolol Succinate 25 Mg Tab.er.24h, 25 MG PO DAILY, (Reported) Multivitamin 1 Each Tablet, 1 TAB PO DAILY, (Reported) Pioglitazone HCl 15 Mg Tablet, 15 MG PO DAILY, (Reported) Sitagliptin Phos/Metformin HCl 1 Each Tbmp.24hr, 1 TAB PO BID, (Reported) Tamsulosin HCl 0.4 Mg Cap, 0.4 MG PO DAILY, (Reported) Past Pdkxbaa-Dnyvgv-Sgnmgz Hx Patient Social History Alcohol Use: Occasionally Uses Alcohol Beverage of Choice: Cheap Liquor Recreational Drug Use: No Smoking Status: Current Everyday Smoker Type Used: Cigarettes Recent Foreign Travel: No Contact w/Someone Who Travel: No Recent Infectious Disease Expo: No Recent Hopitalizations: Yes Seasonal Allergies Seasonal Allergies: No Surgeries History of Surgeries: Yes Respiratory History of Respiratory Disorde: No Cardiovascular History of Cardiac Disorders: Yes Neurological History of Neurological Disord: Yes (EXPRESSIVE DISORDER) Genitourinary History of Genitourinary Disor: No Gastrointestinal History of Gastrointestinal Di: No Musculoskeletal History of Musculoskeletal Dis: No Endocrine History of Endocrine Disorders: Yes Are Your Blood Sugars Over 250: No HEENT History of HEENT Disorders: No Loss of Vision: Denies Hearing Impairment: Denies Cancer History of Cancer: No Integumentary History of Skin or Integumenta: No Family Medical History Family Medial History: Patient reports no known family medical history. Review of Systems-General Constitutional: malaise, weakness EENTM: no symptoms reported Respiratory: no symptoms reported Cardiovascular: no symptoms reported Gastrointestinal: no symptoms reported Genitourinary: no symptoms reported Physical Exam-General Problems Physical Exam Vital Signs Vital Sign - Last 12Hours 07/03/17 07/03/17 16:55 17:00 Temp 99.4 Pulse 79 Resp 18 B/P (MAP) 144/76 (98) Pulse Ox 94 O2 Delivery Room Air Capillary Refill : Less Than 3 Seconds General Appearance: WD/WN, no apparent distress Eyes: Bilateral Eye Normal Inspection HEENT: normal ENT inspection Neck: non-tender, full range of motion, normal inspection Respiratory: normal breath sounds, no respiratory distress, no accessory muscle use Cardiovascular: regular rate, rhythm, no murmur Gastrointestinal: non tender, soft Assessment/Plan Assessment/Plan Admission Diagnosis/Plan right hip fracture. Posttraumatic seizure disorder. Ethanol abuse. Tobacco usage Clinical Quality Measures DVT/VTE Risk/Contraindication: Risk Factor Score Per Nursin RFS Level Per Nursing on Admit: 4+=Very High SHASHANK JACOB DO Jul 06, 2017 18:52
[2017-07-06] MEDS: SIMvastatin 10 MG (ZOCOR) TAB PO SCH (20:25)
[2017-07-07 05:25] VITALS: BP 107/69
[2017-07-07 07:22] LABS: ALANINE AMINOTRANSFERASE 19 U/L (0-55); ALBUMIN 3.6 GM/DL (3.2-4.5); ALKALINE PHOSPHATASE 60 U/L (40-136); BILIRUBIN,TOTAL 0.5 MG/DL (0.1-1.0); BUN/CREATININE RATIO 18; CALCIUM 8.9 MG/DL (8.5-10.1); CARBON DIOXIDE 25 MMOL/L (21-32); CHLORIDE 101 MMOL/L (98-107); CHOLESTEROL 143 MG/DL (< 200); CREATININE SERUM 0.67 MG/DL (0.60-1.30); GFR ESTIMATED > 60; GLUCOSE 140 MG/DL (70-105); HDL CHOLESTEROL 25 MG/DL (40-60); POTASSIUM 4.2 MMOL/L (3.6-5.0); SODIUM 136 MMOL/L (135-145); TOTAL PROTEIN 5.9 GM/DL (6.4-8.2); TRIGLYCERIDES 111 MG/DL (<150); VLDL CHOLESTEROL 22 MG/DL (5-40)
[2017-07-07] MEDS: metFORMIN XR 500 MG (GLUCOPHAGE XR) TAB PO SCH (07:24)
[2017-07-07] MEDS: MULTIVIT W/MINERALS TAB (THERAGRAN M) PO SCH (07:24)
[2017-07-07] MEDS: PIOGLITAZONE 30MG (ACTOS) TAB PO SCH (07:25)
[2017-07-07] MEDS: HYDROcodone/APAP 5 MG/325 MG (LORTAB) TAB PO PRN (07:25)
[2017-07-07] MEDS: lisINopril 20 MG (ZESTRIL) TAB PO SCH (08:09)
[2017-07-07] MEDS: carBAMazepine 100 MG (TEGretol) CHEW PO SCH (08:09)
[2017-07-07] MEDS: ASPIRIN E.C. 81 MG (ECOTRIN) TAB PO SCH (08:09)
[2017-07-07] MEDS: SENNA W/DOCUSATE (SENOKOT S) TABLET PO SCH ×2 (08:10→19:58)
--- NOTE | 2017-07-07 08:54 | Progress Note (SOAP) ---
Subjective Time Seen by Provider: 08:54 Subjective/Events-last exam patient weak. Right hip fracture. Patient has trouble putting pants on Objective Exam Vital Signs Date Time Temp Pulse Resp B/P (MAP) Pulse Ox O2 Delivery O2 Flow Rate FiO2 07/07/17 05:25 98.6 63 18 107/69 (82) 93 Room Air 07/06/17 17:37 98.6 80 18 131/76 (94) 96 Room Air I & O 07/07/17 07:00 Intake Total 1300 ml Output Total 2150 ml Balance -850 ml Capillary Refill : Less Than 3 Seconds General Appearance: No Apparent Distress, WD/WN Results Lab Laboratory Tests 07/07/17 05:31: Sodium Level 136, Potassium Level 4.2, Chloride Level 101, Carbon Dioxide Level 25, Anion Gap 10, Blood Urea Nitrogen 12, Creatinine 0.67, Estimat Glomerular Filtration Rate > 60, BUN/Creatinine Ratio 18, Glucose Level 140H, Calcium Level 8.9, Total Bilirubin 0.5, Aspartate Amino Transf (AST/SGOT) 17, Alanine Aminotransferase (ALT/SGPT) 19, Alkaline Phosphatase 60, Total Protein 5.9L, Albumin 3.6, Triglycerides Level 111, Cholesterol Level 143, LDL Cholesterol Direct 99, VLDL Cholesterol 22, HDL Cholesterol 25L Assessment/Plan Assessment/Plan Assess & Plan/Chief Complaint right hip fracture. Posttraumatic seizure disorder. Ethanol abuse. Tobacco usage. . . Right hip fracture. Posttraumatic seizure disorder. Ethanol abuse. Tobacco usage. Patient weak and needs PT and OT Clinical Quality Measures DVT/VTE Risk/Contraindication: Risk Factor Score Per Nursin RFS Level Per Nursing on Admit: 4+=Very High SHASHANK JACOB DO Jul 07, 2017 08:54
--- NOTE | 2017-07-07 10:56 | Physical Therapy Daily Note ---
PT Daily Note-Current Subjective Pt is sitting on chair in room pre tx and agrees to PT. Pt c/o pain during movement of the leg. Pain Numeric Pain Scale: 8 Location: Right Location Body Site: Hip Appearance Pt is sitting in [facility] post tx with all needs met at this time. Mental Status Patient Orientation: Person, Place, Situation Transfers Functional [place] Measure 0=Not Assessed/NA 4=Minimal Assistance 1=Total Assistance 5=Supervision or Setup 2=Maximal Assistance 6=Modified [place] 3=Moderate Assistance 7=Complete IndependenceIRFPAI Quality Coding Scale 6 Independent with activity with or without an assistive device 5 Patient requires set up or clean up by helper. Patient completes activity by themselves 4 Supervision or touching assist (CGA). [place] provide cues , steadying assist 3 The helper provides less than half the effort to complete the activity 2 The helper provides more than half the effort to complete the activity 1 Dependent. The helper does all the effort to complete an activity 7 Patient refused to complete or attempt activity 9 The patient did not perform the activity before the current illness or injury 88 Not attempted due to Medical conditions or safety concerns Transfers (B, C, W/C) (FIM): 4 Scootin Sit to/from Stand: 4 Pt requires verbal cues for hand placement on WC during stand to sit. Weight Bearing Right Lower Extremity: Right Weight Bearing/Tolerated Left Lower Extremity: Left Full Weight Bearing Gait Training Does the Patient Walk?: Yes Gait (FIM): 1 Distance (FIM): 1=up to 49 ft Distance: 40 feet x2 Gait Level of Assist: 4 Gait Persons Needed: 1 Gait Assistive Device: FWW Pt limits weight-bearing on the RLE due to pain Wheelchair Training Does the Pt Use a Wheelchair?: Yes Wheelchair (FIM): 5 Wheelchair Distance: 3=150 ft Distance: 150 feet x2 Wheelchair Level of Assist: 5 Type of Wheelchair: Manual Exercises Standing: Hip Abduction (10 x1 with RLE), Hamstring curls (10 x1 with RLE), Marching (10 x1 with RLE), Sit to Stand (x5) NuStep Minutes: 10 NuStep Workload: 1 Treatments Gait training, strengthening exercises, functional activity Assessment Current Status: Fair Progress Pt continues to limit RLE weight-bearing due to pain. PT Short Term Goals Short Term Goals Time Frame: Jul 18, 2017 Transfers (B,C,W/C) (FIM): 4 Gait (FIM): 4 Distance (FIM): 3=150 ft Gait Assistive Device: FWW Wheelchair (FIM): 6 Wheelchair distance (FIM): 3=150 ft Wheelchair Distance: 25 feet PT Residential Goals Classification Clerk Goals PT Residential Goals Time Frame: Aug 01, 2017 Transfers (B,C,W/C) (FIM): 6 Sit to Lying (QC): 6 Lying-Sitting on Side/Bed(QC): 6 Sit to Stand (QC): 6 Rollin Roll Left to Right (QC): 6 Chair/Oip-gp-Dukkg Xfer(QC): 6 Car Transfer (QC): 6 Does the Patient Walk: Yes Gait (FIM): 6 Gait distance (FIM): 3=150 ft Walk 10 feet (QC): 6 Walk 10ft-Uneven Surface(QC): 6 Walk 50ft with 2 Turns (QC): 6 Walk 150 ft (QC): 6 Gait Level of Assist: 6 Gait Assistive Device: FWW Does the Pt use WC or Scooter?: No Stairs (FIM): 6 # of Steps: 12 1 Step (curb) (QC): 6 4 Steps (QC): 6 12 Steps (QC): 6 Picking up an Object (QC): 6 PT Plan Problem List Problem List: Activity Tolerance, Functional Strength, Safety, Balance, Gait, Transfer, Bed Mobility, ROM Treatment/Plan Treatment Plan: Continue Plan of Care Treatment Plan: Bed Mobility, Education, Functional Activity Roney, Functional Strength, Group Therapy, Gait, Safety, Therapeutic Exercise, Transfers Treatment Duration: Aug 01, 2017 Frequency: At least 5 of 7 days/Wk (IRF) Estimated Hrs Per Day: 1.5 hours per day Patient and/or Family Agrees t: Yes Safety Risks/Education Patient Education: Gait Training, Transfer Techniques, W/C Management, Safety Issues Teaching Recipient: Patient Teaching Methods: Demonstration, Discussion Response to Teaching: Verbalize Understanding, Return Demonstration, Reinforcement Needed Time/GCodes Time In: 1000 Time Out: 1100 Total Billed Treatment Time: 60 Total Billed Treatment 1 visit 30 min GT 20 min EX 10 min YARIEL HERNANDEZ PT Jul 07, 2017 10:56
--- NOTE | 2017-07-07 11:25 | Occupational Ther Daily Note ---
OT Current Status-Daily Note Subjective Pt sitting in chair, agrees to therapy. Pt reports 8/10 right hip pain. Mental Status/Objective Functional [place] Measure 0=Not Assessed/NA 4=Minimal Assistance 1=Total Assistance 5=Supervision or Setup 2=Maximal Assistance 6=Modified [place] 3=Moderate Assistance 7=Complete [place] ADL-Treatment Pt states he has already shaved and cleaned up this morning, but would like to change his pants. Pt doffed pants with minimal assistance for standing balance. Doffed socks with SBA. Pt able to start sweatpants over feet and pull up. Stood with minimal assistance for balance during pant hike. Pt donned left sock with SBA. Required minimal assistance to don right sock. Pt declined to use sock aid to complete task. Sit to stand and transfer to w/c with minimal assistance. Pt brushed teeth with SBA while seated at sink. Functional [place] Measure 0=Not Assessed/NA 4=Minimal Assistance 1=Total Assistance 5=Supervision or Setup 2=Maximal Assistance 6=Modified [place] 3=Moderate Assistance 7=Complete IndependenceIRFPAI Quality Coding Scale 6 Independent with activity with or without an assistive device 5 Patient requires set up or clean up by helper. Patient completes activity by themselves 4 Supervision or touching assist (CGA). [place] provide cues , steadying assist 3 The helper provides less than half the effort to complete the activity 2 The helper provides more than half the effort to complete the activity 1 Dependent. The helper does all the effort to complete an activity 7 Patient refused to complete or attempt activity 9 The patient did not perform the activity before the current illness or injury 88 Not attempted due to Medical conditions or safety concerns Oral Hygiene (QC): 5 Lower Body Dressing (FIM): 4 On/Off Footwear (QC): 3 Other Treatment Pt performed w/c mobility to therapy gym without assistance. Pt performed bilateral UE exercises to promote increased strength needed for ADLs and transfers. Pt performed shoulder flexion, forward press, biceps curls, and wrist flex/ext x15 reps with 2# dowel zohreh. Rest breaks taken between exercises. Arm bike [id number] to increase overall strength and activity tolerance for functional tasks. Pt performed task with moderate resistance and steady pace. No rest breaks needed. Pt completed fine motor task with nuts and bolts with 1# weights in place to increase strength and coordination. Pt able to complete task without difficulty. Pt performed sit to stand x5 reps with minimal assistance to CGA. Cues for hand placement and safety. Pt sitting in chair with needs met after session. OT Short Term Goals Short Term Goals Time Frame: Jul 11, 2017 Eating(FIM): 5 Grooming(FIM): 5 Bathing(FIM): 4 Upper Body Dressing(FIM): 5 Lower Body Dressing(FIM): 4 Toileting(FIM): 4 Transfers (B,C,W/C) (FIM): 4 Toilet/Commode Transfer(FIM): 4 Shower Transfer(FIM): 4 Additional Short Term Goals: 1-Demonstrate ADL Tasks, 2-Verbalize Understanding , 3-ImproveStrength/Roney 1=Demonstrate adherence to instructed precautions during ADL tasks. 2=Patient will verbalize/demonstrate understanding of assistive devices/ modifications for ADL. 3=Patient will improve strength/tolerance for activity to enable patient to perform ADL's. OT [facility] Goals Telemetry Technician Goals Time Frame: Jul 25, 2017 Eating (FIM): 6 Eating (QC): 6 Groomin Oral Hygiene (QC): 5 Bathing(FIM): 5 Shower/Bathe Self (QC): 5 Upper Body Dressing(FIM): 5 Upper Body Dressing (QC): 5 Lower Body Dressing(FIM): 5 Lower Body Dressing (QC): 5 On/Off Footwear (QC): 5 Toileting(FIM): 6 Toileting Hygiene (QC): 6 Transfers (B,C,W/C) (FIM): 5 Toilet/Commode Transfer(FIM): 6 Toilet/Commode Transfer (QC): 6 Shower Transfer(FIM): 5 Additional Goals: 1-Demonstrate ADL Tasks, 2-Verbalize Understanding, 3- ImproveStrength/Roney 1=Demonstrate adherence to instructed precautions during ADL tasks. 2=Patient will verbalize/demonstrate understanding of assistive devices/ modifications for ADL. 3=Patient will improve strength/tolerance for activity to enable patient to perform ADL's. OT Education/Plan Discharge Recommendations Plan/Recommendations: Continue POC Treatment Plan/Plan of Care Patient would benefit from OT for education, treatment and training to promote independence in ADL's, mobility, safety and/or upper extremity function for ADL' s. Plan of Care: ADL Retraining, Caregiver Training, Functional Mobility, Group Exercise/Act as Ind, UE Funct Exercise/Act Treatment Duration: Jul 25, 2017 Frequency: At least 5 of 7 days/Wk (IRF) Estimated Hrs Per Day: 1.5 hours per day Agreement: Yes Rehab Potential: Good Time/GCodes Start Time: 08:00 Stop Time: 09:30 Total Time Billed (hr/min): 90 Billed Treatment Time 1 visit, ADLx2(30minutes), EXx3(45minutes), FA(15minutes) KATE ROJAS OT Jul 07, 2017 11:25
--- NOTE | 2017-07-07 15:19 | Physical Therapy Daily Note ---
PT Daily Note-Current Subjective Patient agrees to PT. Pain Numeric Pain Scale: 5-Moderate Pain Location: Right Location Body Site: Hip Pain Description: Acute Mental Status Patient Orientation: Normal For Age Transfers Functional [place] Measure 0=Not Assessed/NA 4=Minimal Assistance 1=Total Assistance 5=Supervision or Setup 2=Maximal Assistance 6=Modified [place] 3=Moderate Assistance 7=Complete IndependenceIRFPAI Quality Coding Scale 6 Independent with activity with or without an assistive device 5 Patient requires set up or clean up by helper. Patient completes activity by themselves 4 Supervision or touching assist (CGA). [place] provide cues , steadying assist 3 The helper provides less than half the effort to complete the activity 2 The helper provides more than half the effort to complete the activity 1 Dependent. The helper does all the effort to complete an activity 7 Patient refused to complete or attempt activity 9 The patient did not perform the activity before the current illness or injury 88 Not attempted due to Medical conditions or safety concerns Transfers (B, C, W/C) (FIM): 5 Scootin Sit to/from Stand: 5 Sit to Stand (QC): 5 Car Transfer (QC): 5 close SBA with gait belt in place Weight Bearing Right Lower Extremity: Right Weight Bearing/Tolerated Left Lower Extremity: Left Full Weight Bearing Gait Training Does the Patient Walk?: Yes Gait (FIM): 4 Distance (FIM): 3=150 ft Distance: 150' x 2 Walk 10 feet (QC): 4 Walk 50 ft with 2 Turns(QC): 4 Walk 150 ft (QC): 4 Gait Level of Assist: 4 Gait Assistive Device: FWW antalgic, step to gait sequence; patient performs heel contact and is instructed to perform normal gait sequence or flat foot Exercises NuStep Minutes: 15 NuStep Workload: 5 (to increase reciprocal pattern and functional mobility) Assessment Current Status: Excellent Progress Patient tolerated treatment well and remains up in recliner with needs met. Patient demands chair alarm not be on. RN is aware. PT Short Term Goals Short Term Goals Time Frame: Jul 18, 2017 Transfers (B,C,W/C) (FIM): 4 Gait (FIM): 4 Distance (FIM): 3=150 ft Gait Assistive Device: FWW Wheelchair (FIM): 6 Wheelchair distance (FIM): 3=150 ft Wheelchair Distance: 150 feet x2 PT Livestock Feeder Goals Prison Goals PT Prison Goals Time Frame: Aug 01, 2017 Transfers (B,C,W/C) (FIM): 6 Sit to Lying (QC): 6 Lying-Sitting on Side/Bed(QC): 6 Sit to Stand (QC): 6 Rollin Roll Left to Right (QC): 6 Chair/Cok-nw-Mamxx Xfer(QC): 6 Car Transfer (QC): 6 Does the Patient Walk: Yes Gait (FIM): 6 Gait distance (FIM): 3=150 ft Walk 10 feet (QC): 6 Walk 10ft-Uneven Surface(QC): 6 Walk 50ft with 2 Turns (QC): 6 Walk 150 ft (QC): 6 Gait Level of Assist: 6 Gait Assistive Device: FWW Does the Pt use WC or Scooter?: No Stairs (FIM): 6 # of Steps: 12 1 Step (curb) (QC): 6 4 Steps (QC): 6 12 Steps (QC): 6 Picking up an Object (QC): 6 PT Plan Treatment/Plan Treatment Plan: Continue Plan of Care Treatment Plan: Bed Mobility, Education, Functional Activity Roney, Functional Strength, Group Therapy, Gait, Safety, Therapeutic Exercise, Transfers Treatment Duration: Aug 01, 2017 Frequency: At least 5 of 7 days/Wk (IRF) Estimated Hrs Per Day: 1.5 hours per day Patient and/or Family Agrees t: Yes Time/GCodes Time In: 1445 Time Out: 1515 Total Billed Treatment Time: 30 Total Billed Treatment 1 visit EX 15 min GT 15 min SANDRA DUVAL PT Jul 07, 2017 15:19
--- NOTE | 2017-07-07 15:31 | PM & R (SOAP) Progress Note ---
Subjective Time Seen by Provider: 07:50 Subjective/Events-last exam Patient was seen in his room this AM Patient SBA for transfers C/O constipation Meds available Discussed case with RN.Labs and accucheks noted Objective Exam Last Set of Vital Signs Vital Signs Date Time Temp Pulse Resp B/P (MAP) Pulse Ox O2 Delivery O2 Flow Rate FiO2 07/07/17 09:14 Room Air 07/07/17 05:25 98.6 63 18 107/69 (82) 93 Capillary Refill : Less Than 3 Seconds I&O Intake and Output 07/07/17 00:00 Intake Total 1400 ml Output Total 2350 ml Balance -950 ml Intake Oral 1400 ml Output Urine Total 2350 ml General: Alert, Oriented X3, Cooperative, No Acute Distress HEENT: Atraumatic, PERRLA, EOMI, Mucous Memb Moist/[place] Neck: Supple, No JVD Lungs: Clear to Auscultation Heart: Regular Rate Abdomen: Normal Bowel Sounds, Soft, No Tenderness Extremities: No Edema Skin: Other (incision rt hip healing well) Neuro: Other (Strength funtional BUES and 4+/5 LLE RT HIP flex 2/5 Quads 3/5 Dorsiflexion 4/5 ) Results Lab Laboratory Tests 07/05/17 06:29: Glucometer 159H 07/06/17 05:45: Glucometer 148H 07/07/17 05:31: Sodium Level 136, Potassium Level 4.2, Chloride Level 101, Carbon Dioxide Level 25, Anion Gap 10, Blood Urea Nitrogen 12, Creatinine 0.67, Estimat Glomerular Filtration Rate > 60, BUN/Creatinine Ratio 18, Glucose Level 140H, Calcium Level 8.9, Total Bilirubin 0.5, Aspartate Amino Transf (AST/SGOT) 17, Alanine Aminotransferase (ALT/SGPT) 19, Alkaline Phosphatase 60, Total Protein 5.9L, Albumin 3.6, Triglycerides Level 111, Cholesterol Level 143, LDL Cholesterol Direct 99, VLDL Cholesterol 22, HDL Cholesterol 25L Assessment/Plan Assessment Rt proximal Femur frx s/p IM nailing OSH [place] DM controlled with meds ETOH abuse Tobaccoism curreently abstaining HTN controlled HX 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
[2017-07-07] MEDS: ALFUZOSIN HCL 10 MG TAB (UROXATRAL) PO SCH (17:21)
[2017-07-07] MEDS: METFORMIN PO SCH (17:21)
[2017-07-07] MEDS: SITAGLIPTIN PO SCH (17:21)
[2017-07-07 18:16] VITALS: BP 107/68
[2017-07-07] MEDS: SIMvastatin 10 MG (ZOCOR) TAB PO SCH (19:57)
[2017-07-08 05:07] VITALS: BP 106/66
[2017-07-08] MEDS: MULTIVIT W/MINERALS TAB (THERAGRAN M) PO SCH (06:57)
[2017-07-08] MEDS: PIOGLITAZONE 30MG (ACTOS) TAB PO SCH (06:57)
[2017-07-08] MEDS: SITAGLIPTIN PO SCH ×2 (06:57→17:02)
[2017-07-08] MEDS: METFORMIN PO SCH ×2 (06:57→17:02)
[2017-07-08] MEDS: SENNA W/DOCUSATE (SENOKOT S) TABLET PO SCH ×2 (08:16→20:22)
[2017-07-08] MEDS: carBAMazepine 100 MG (TEGretol) CHEW PO SCH (08:16)
[2017-07-08] MEDS: lisINopril 20 MG (ZESTRIL) TAB PO SCH (08:16)
[2017-07-08] MEDS: HYDROcodone/APAP 5 MG/325 MG (LORTAB) TAB PO PRN (08:16)
[2017-07-08] MEDS: ASPIRIN E.C. 81 MG (ECOTRIN) TAB PO SCH (08:16)
--- NOTE | 2017-07-08 08:29 | Progress Note (SOAP) ---
Subjective Time Seen by Provider: 08:29 Subjective/Events-last exam atient states she's getting stronger each day. Patient positive. Right hip fracture. Objective Exam Vital Signs Date Time Temp Pulse Resp B/P (MAP) Pulse Ox O2 Delivery O2 Flow Rate FiO2 07/08/17 05:07 98.4 74 18 106/66 (79) 94 Room Air 07/07/17 18:16 96.5 72 16 107/68 (81) 92 Room Air 07/07/17 09:14 Room Air I & O 07/08/17 07:00 Intake Total 800 ml Output Total 1300 ml Balance -500 ml Capillary Refill : Less Than 3 Seconds General Appearance: No Apparent Distress, WD/WN Results Lab Laboratory Tests 07/08/17 06:15: Glucometer 155H Assessment/Plan Assessment/Plan Assess & Plan/Chief Complaint right hip fracture. Posttraumatic seizure disorder. Ethanol abuse. Tobacco usage. . . Right hip fracture. Posttraumatic seizure disorder. Ethanol abuse. Tobacco usage. Patient weak and needs PT and OT. . 07/08/17 area Right hip fracture. Ethanol abuse. Tobacco usage. patient working hard. Patient states she is improving each day. Patient has not put on his pants yet by himself Clinical Quality Measures DVT/VTE Risk/Contraindication: Risk Factor Score Per Nursin RFS Level Per Nursing on Admit: 4+=Very High SHASHANK JACOB DO Jul 08, 2017 08:29
--- NOTE | 2017-07-08 09:51 | PM & R (SOAP) Progress Note ---
Subjective Time Seen by Provider: 08:10 Subjective/Events-last exam Patient was seen in his room this AM Patient SBA for transfers Progressing well with therapies Objective Exam Last Set of Vital Signs Vital Signs Date Time Temp Pulse Resp B/P (MAP) Pulse Ox O2 Delivery O2 Flow Rate FiO2 07/08/17 09:32 Room Air 07/08/17 05:07 98.4 74 18 106/66 (79) 94 Capillary Refill : Less Than 3 Seconds I&O Intake and Output 07/08/17 00:00 Intake Total 900 ml Output Total 1600 ml Balance -700 ml Intake Oral 900 ml Output Urine Total 1600 ml # Voids 4 # Bowel Movements 3 General: Alert, Oriented X3, Cooperative, No Acute Distress HEENT: Atraumatic, PERRLA, EOMI, Mucous Memb Moist/[place] Neck: Supple, No JVD Lungs: Clear to Auscultation Heart: Regular Rate Abdomen: Normal Bowel Sounds, Soft, No Tenderness Extremities: No Edema Skin: Other (incision rt hip healing well) Neuro: Other (Strength funtional BUES and 4+/5 LLE RT HIP flex 2/5 Quads 3/5 Dorsiflexion 4/5 ) Results Lab Laboratory Tests 07/06/17 05:45: Glucometer 148H 07/07/17 05:31: Sodium Level 136, Potassium Level 4.2, Chloride Level 101, Carbon Dioxide Level 25, Anion Gap 10, Blood Urea Nitrogen 12, Creatinine 0.67, Estimat Glomerular Filtration Rate > 60, BUN/Creatinine Ratio 18, Glucose Level 140H, Calcium Level 8.9, Total Bilirubin 0.5, Aspartate Amino Transf (AST/SGOT) 17, Alanine Aminotransferase (ALT/SGPT) 19, Alkaline Phosphatase 60, Total Protein 5.9L, Albumin 3.6, Triglycerides Level 111, Cholesterol Level 143, LDL Cholesterol Direct 99, VLDL Cholesterol 22, HDL Cholesterol 25L 07/08/17 06:15: Glucometer 155H Assessment/Plan Assessment Rt proximal Femur frx s/p IM nailing OSH [place] DM controlled with meds ETOH abuse Tobaccoism curreently abstaining HTN controlled HX TBI 2011 s/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
--- NOTE | 2017-07-08 10:37 | Occupational Ther Daily Note ---
OT Current Status-Daily Note Subjective Pt alert, sitting in recliner shaving. Pt agreed to therapy. Pt stated that he had not taken pain meds since last night, would like some now. Nrsg brought pt pain medication. Mental Status/Objective Patient Orientation: Person, Place, Time, Situation Functional [place] Measure 0=Not Assessed/NA 4=Minimal Assistance 1=Total Assistance 5=Supervision or Setup 2=Maximal Assistance 6=Modified [place] 3=Moderate Assistance 7=Complete [place] ADL-Treatment Pt declined to complete bathing or change clothing today. Functional [place] Measure 0=Not Assessed/NA 4=Minimal Assistance 1=Total Assistance 5=Supervision or Setup 2=Maximal Assistance 6=Modified [place] 3=Moderate Assistance 7=Complete IndependenceIRFPAI Quality Coding Scale 6 Independent with activity with or without an assistive device 5 Patient requires set up or clean up by helper. Patient completes activity by themselves 4 Supervision or touching assist (CGA). [place] provide cues , steadying assist 3 The helper provides less than half the effort to complete the activity 2 The helper provides more than half the effort to complete the activity 1 Dependent. The helper does all the effort to complete an activity 7 Patient refused to complete or attempt activity 9 The patient did not perform the activity before the current illness or injury 88 Not attempted due to Medical conditions or safety concerns Other Treatment Pt walked from one side of room to the other to transfer into w/c. Pt maneuvered w/c from room to therapy gym. [place] zohreh with 4# wt attached to complete 4 UE exercises 3 sets 10 reps. Then pt complete 4# hand weights for forearm/wrist extensor/flexor exercises, 3 sets 10 reps. Pt then maneuvered w/ c to [facility] kitchen to get cup of coffee then to room. Pt stayed in w/c after therapy. Call light/phone in reach. All needs met in room. OT Short Term Goals Short Term Goals Time Frame: Jul 11, 2017 Eating(FIM): 5 Grooming(FIM): 5 Bathing(FIM): 4 Upper Body Dressing(FIM): 5 Lower Body Dressing(FIM): 4 Toileting(FIM): 4 Transfers (B,C,W/C) (FIM): 4 Toilet/Commode Transfer(FIM): 4 Shower Transfer(FIM): 4 Additional Short Term Goals: 1-Demonstrate ADL Tasks, 2-Verbalize Understanding , 3-ImproveStrength/[place] 1=Demonstrate adherence to instructed precautions during ADL tasks. 2=Patient will verbalize/demonstrate understanding of assistive devices/ modifications for ADL. 3=Patient will improve strength/tolerance for activity to enable patient to perform ADL's. OT Prison Goals Prison Goals Time Frame: Jul 25, 2017 Eating (FIM): 6 Eating (QC): 6 Groomin Oral Hygiene (QC): 5 Bathing(FIM): 5 Shower/Bathe Self (QC): 5 Upper Body Dressing(FIM): 5 Upper Body Dressing (QC): 5 Lower Body Dressing(FIM): 5 Lower Body Dressing (QC): 5 On/Off Footwear (QC): 5 Toileting(FIM): 6 Toileting Hygiene (QC): 6 Transfers (B,C,W/C) (FIM): 5 Toilet/Commode Transfer(FIM): 6 Toilet/Commode Transfer (QC): 6 Shower Transfer(FIM): 5 Additional Goals: 1-Demonstrate ADL Tasks, 2-Verbalize Understanding, 3- ImproveStrength/[place] 1=Demonstrate adherence to instructed precautions during ADL tasks. 2=Patient will verbalize/demonstrate understanding of assistive devices/ modifications for ADL. 3=Patient will improve strength/tolerance for activity to enable patient to perform ADL's. OT Education/Plan Discharge Recommendations Plan/Recommendations: Continue POC Treatment Plan/Plan of Care Patient would benefit from OT for education, treatment and training to promote independence in ADL's, mobility, safety and/or upper extremity function for ADL' s. Plan of Care: ADL Retraining, Caregiver Training, Functional Mobility, Group Exercise/Act as Ind, UE Funct Exercise/Act Treatment Duration: Jul 25, 2017 Frequency: At least 5 of 7 days/Wk (IRF) Estimated Hrs Per Day: 1.5 hours per day Agreement: Yes Rehab Potential: Good Time/GCodes Start Time: 08:00 Stop Time: 09:00 Total Time Billed (hr/min): 60 Billed Treatment Time 1 visit-FA 1 (20 min) EX 3 (40 min) MG ZARATE Jul 08, 2017 10:37
--- NOTE | 2017-07-08 11:09 | Physical Therapy Daily Note ---
PT Daily Note-Current Subjective Pt. agrees to rx. States he is nearly incoherent with pain etc. States he really cannot even attempt stairs as he has immense fear of them. Never rated pain Mental Status Patient Orientation: Confused Transfers Functional [place] Measure 0=Not Assessed/NA 4=Minimal Assistance 1=Total Assistance 5=Supervision or Setup 2=Maximal Assistance 6=Modified [place] 3=Moderate Assistance 7=Complete IndependenceIRFPAI Quality Coding Scale 6 Independent with activity with or without an assistive device 5 Patient requires set up or clean up by helper. Patient completes activity by themselves 4 Supervision or touching assist (CGA). [place] provide cues , steadying assist 3 The helper provides less than half the effort to complete the activity 2 The helper provides more than half the effort to complete the activity 1 Dependent. The helper does all the effort to complete an activity 7 Patient refused to complete or attempt activity 9 The patient did not perform the activity before the current illness or injury 88 Not attempted due to Medical conditions or safety concerns Transfers (B, C, W/C) (FIM): 5 Scootin Rollin Supine to/from Sit: 5 Sit to/from Stand: 5 Weight Bearing Right Lower Extremity: Right Weight Bearing/Tolerated Left Lower Extremity: Left Full Weight Bearing Gait Training Does the Patient Walk?: Yes Gait (FIM): 5 Distance (FIM): 3=150 ft (175x2) Gait Level of Assist: 5 Gait Persons Needed: 1 Gait Assistive Device: FWW tends to try to NWB right , holds right ankle stiff Stair Training Stair Training: Handrails/: uses walker Stairs (FIM): 2 #of Steps: 2 Stairs: Pattern: Step to Level of Assist: 4 pt. fearful however this DRILLER MULTIPLE SPINDLE believes pt. could do this if he would conscent to try. Stood at bottom of stairs and declined seemingly with fear. small pink step was used for FWW up and over etc. Exercises Supine Ex: Ankle pumps, Quad Set, Rolling, Glut sets, Heel Slides, Short Arc Quads, Scooting, Straight leg raise (assist x 4), Hip abd/add Supine Reps: 15 Seated Therapy Exercises: Ankle pumps, Sit to stand, Long arc quads Seated Reps: 12 Assessment Current Status: Good Progress very talkative, needs redirected to task frequently PT Short Term Goals Short Term Goals Time Frame: Jul 18, 2017 Transfers (B,C,W/C) (FIM): 4 Gait (FIM): 4 Distance (FIM): 3=150 ft Gait Assistive Device: FWW Wheelchair (FIM): 6 Wheelchair distance (FIM): 3=150 ft Wheelchair Distance: 150 feet x2 PT Longterm Goals Longterm Goals PT Sales Vice President Goals Time Frame: Aug 01, 2017 Transfers (B,C,W/C) (FIM): 6 Sit to Lying (QC): 6 Lying-Sitting on Side/Bed(QC): 6 Sit to Stand (QC): 6 Rollin Roll Left to Right (QC): 6 Chair/Fin-wm-Rlfrl Xfer(QC): 6 Car Transfer (QC): 6 Does the Patient Walk: Yes Gait (FIM): 6 Gait distance (FIM): 3=150 ft Walk 10 feet (QC): 6 Walk 10ft-Uneven Surface(QC): 6 Walk 50ft with 2 Turns (QC): 6 Walk 150 ft (QC): 6 Gait Level of Assist: 6 Gait Assistive Device: FWW Does the Pt use WC or Scooter?: No Stairs (FIM): 6 # of Steps: 12 1 Step (curb) (QC): 6 4 Steps (QC): 6 12 Steps (QC): 6 Picking up an Object (QC): 6 PT Plan Treatment/Plan Treatment Plan: Continue Plan of Care Treatment Plan: Bed Mobility, Education, Functional Activity Roney, Functional Strength, Group Therapy, Gait, Safety, Therapeutic Exercise, Transfers Treatment Duration: Aug 01, 2017 Frequency: At least 5 of 7 days/Wk (IRF) Estimated Hrs Per Day: 1.5 hours per day Patient and/or Family Agrees t: Yes Safety Risks/Education Patient Education: Gait Training, Transfer Techniques, Steps Teaching Recipient: Patient Teaching Methods: Demonstration, Discussion Response to Teaching: Verbalize Understanding, Return Demonstration, Reinforcement Needed Time/GCodes Time In: 1015 Time Out: 1100 Total Billed Treatment Time: 45 Total Billed Treatment 1,GT20m,EX15m,FA10m G Codes Necessary: ROSY Luu DRILLER MULTIPLE SPINDLE Jul 08, 2017 11:09
--- NOTE | 2017-07-08 14:45 | Physical Therapy Daily Note ---
PT Daily Note-Current Subjective Pt. agrees to rx. States he just needs to go in to urinate before leaving the room. Pain Numeric Pain Scale: 0-No Pain Transfers Functional [place] Measure 0=Not Assessed/NA 4=Minimal Assistance 1=Total Assistance 5=Supervision or Setup 2=Maximal Assistance 6=Modified [place] 3=Moderate Assistance 7=Complete IndependenceIRFPAI Quality Coding Scale 6 Independent with activity with or without an assistive device 5 Patient requires set up or clean up by helper. Patient completes activity by themselves 4 Supervision or touching assist (CGA). [place] provide cues , steadying assist 3 The helper provides less than half the effort to complete the activity 2 The helper provides more than half the effort to complete the activity 1 Dependent. The helper does all the effort to complete an activity 7 Patient refused to complete or attempt activity 9 The patient did not perform the activity before the current illness or injury 88 Not attempted due to Medical conditions or safety concerns in out chair SBA. Weight Bearing Right Lower Extremity: Right Weight Bearing/Tolerated Left Lower Extremity: Left Full Weight Bearing Gait Training Does the Patient Walk?: Yes Gait Assistive Device: FWW 170 ft x 2 FWW with improved gait pattern Exercises NuStep Minutes: 12 NuStep Workload: 3 Treatments with and without hands on Nustep, also did leg presses on Nustep x12 Assessment Current Status: Good Progress PT Short Term Goals Short Term Goals Time Frame: Jul 18, 2017 Transfers (B,C,W/C) (FIM): 4 Gait (FIM): 4 Distance (FIM): 3=150 ft Gait Assistive Device: FWW Wheelchair (FIM): 6 Wheelchair distance (FIM): 3=150 ft Wheelchair Distance: 150 feet x2 PT Chcf Goals Chcf Goals PT Co Pilot Goals Time Frame: Aug 01, 2017 Transfers (B,C,W/C) (FIM): 6 Sit to Lying (QC): 6 Lying-Sitting on Side/Bed(QC): 6 Sit to Stand (QC): 6 Rollin Roll Left to Right (QC): 6 Chair/Vom-de-Xkfba Xfer(QC): 6 Car Transfer (QC): 6 Does the Patient Walk: Yes Gait (FIM): 6 Gait distance (FIM): 3=150 ft Walk 10 feet (QC): 6 Walk 10ft-Uneven Surface(QC): 6 Walk 50ft with 2 Turns (QC): 6 Walk 150 ft (QC): 6 Gait Level of Assist: 6 Gait Assistive Device: FWW Does the Pt use WC or Scooter?: No Stairs (FIM): 6 # of Steps: 12 1 Step (curb) (QC): 6 4 Steps (QC): 6 12 Steps (QC): 6 Picking up an Object (QC): 6 PT Plan Treatment/Plan Treatment Plan: Continue Plan of Care Treatment Plan: Bed Mobility, Education, Functional Activity Roney, Functional Strength, Group Therapy, Gait, Safety, Therapeutic Exercise, Transfers Treatment Duration: Aug 01, 2017 Frequency: At least 5 of 7 days/Wk (IRF) Estimated Hrs Per Day: 1.5 hours per day Patient and/or Family Agrees t: Yes Safety Risks/Education Patient Education: Gait Training, Transfer Techniques Teaching Recipient: Patient Teaching Methods: Demonstration, Discussion Response to Teaching: Return Demonstration, Reinforcement Needed Time/GCodes Time In: 1240 Time Out: 1300 Total Billed Treatment Time: 20 Total Billed Treatment 1,EX20m G Codes Necessary: No ROSY CHIANG PELLET POST INSPECTOR Jul 08, 2017 14:45
--- NOTE | 2017-07-08 15:03 | Therapy Group Daily Note ---
Therapy Daily Group Note Patient Education Topic Other List Below (memory strategies) Exercises LE Seated Exercise, UE Exercise Other/Notes Pt ambulated to OT/PT group in [facility] with CGA using FWW. OT/PT group consisted of introductions (name, place living, worst forgotten moment), socialization, UE/LE seated exercises, memory strategy education, memory activity, ARU description and expectations. Pt appropriately introduced self. Pt then was able to complete UE/LE seated exercises, difficulty moving L LE's during exercises, but did attempt by assisting LE with UE. Pt verbalized understanding of visual strategies for memory and gave a description of what he used for a memory strategy at home. Pt then participated in memory activity stating that he had difficulty with his STM, but then was able to find to matches. Pt then ambulated back to room and sat in w/c. Call light/phone in reach. All needs met in room. Start Time: 13:00 Stop Time: 13:20 Total Billed Treatment Time: 80 Total Billed Treatment 1-GRP MG ZARATE Jul 08, 2017 15:03
[2017-07-08] MEDS: ALFUZOSIN HCL 10 MG TAB (UROXATRAL) PO SCH (17:02)
[2017-07-08 19:37] VITALS: BP 110/70
[2017-07-08] MEDS: SIMvastatin 10 MG (ZOCOR) TAB PO SCH (20:22)
[2017-07-09 05:44] VITALS: BP 117/71
[2017-07-09] MEDS: SITAGLIPTIN PO SCH ×2 (07:17→17:25)
[2017-07-09] MEDS: METFORMIN PO SCH ×2 (07:17→17:25)
[2017-07-09] MEDS: MULTIVIT W/MINERALS TAB (THERAGRAN M) PO SCH (07:17)
[2017-07-09] MEDS: PIOGLITAZONE 30MG (ACTOS) TAB PO SCH (07:17)
[2017-07-09] MEDS: HYDROcodone/APAP 5 MG/325 MG (LORTAB) TAB PO PRN ×2 (07:22→13:29)
[2017-07-09] MEDS: SENNA W/DOCUSATE (SENOKOT S) TABLET PO SCH ×2 (08:01→20:35)
--- NOTE | 2017-07-09 08:17 | Progress Note (SOAP) ---
Subjective Time Seen by Provider: 08:13 Subjective/Events-last exam right hip fracture. Diabetes. Patient excited to continue with his exercises Objective Exam Vital Signs Date Time Temp Pulse Resp B/P (MAP) Pulse Ox O2 Delivery O2 Flow Rate FiO2 07/09/17 07:52 98.4 07/09/17 05:44 98.4 63 18 117/71 (86) 93 Room Air 07/08/17 19:37 96.4 62 14 110/70 (83) 95 Room Air 07/08/17 09:32 Room Air I & O 07/09/17 07:00 Intake Total 1500 ml Output Total 1325 ml Balance 175 ml Capillary Refill : Less Than 3 Seconds General Appearance: WD/WN Results Lab Laboratory Tests 07/09/17 05:25: Glucometer 142H Assessment/Plan Assessment/Plan Assess & Plan/Chief Complaint right hip fracture. Posttraumatic seizure disorder. Ethanol abuse. Tobacco usage. . . Right hip fracture. Posttraumatic seizure disorder. Ethanol abuse. Tobacco usage. Patient weak and needs PT and OT. . 07/08/17 area Right hip fracture. Ethanol abuse. Tobacco usage. patient working hard. Patient states she is improving each day. Patient has not put on his pants yet by himself. . 07/09/17. Right hip fracture. Ethanol abuse. Tobacco usage. Patient ready to work today. sugars under good control Clinical Quality Measures DVT/VTE Risk/Contraindication: Risk Factor Score Per Nursin RFS Level Per Nursing on Admit: 4+=Very High SHASHANK JACOB DO Jul 09, 2017 08:17
[2017-07-09] MEDS: ASPIRIN E.C. 81 MG (ECOTRIN) TAB PO SCH (08:51)
[2017-07-09] MEDS: lisINopril 20 MG (ZESTRIL) TAB PO SCH (08:52)
[2017-07-09] MEDS: carBAMazepine 100 MG (TEGretol) CHEW PO SCH (08:52)
--- NOTE | 2017-07-09 11:01 | Physical Therapy Daily Note ---
PT Daily Note-Current Subjective Pt sitting in chair in Therapy Gym after just finishing with OT. Pt agrees to PT. Pain Location: Right Location Body Site: Hip Pain Description: Stabbing, Sharp Comment: Pt won't give numerical value but reports pain in very strong naseem. w/WB Mental Status Patient Orientation: Person, Place, Situation Transfers Functional [place] Measure 0=Not Assessed/NA 4=Minimal Assistance 1=Total Assistance 5=Supervision or Setup 2=Maximal Assistance 6=Modified [place] 3=Moderate Assistance 7=Complete IndependenceIRFPAI Quality Coding Scale 6 Independent with activity with or without an assistive device 5 Patient requires set up or clean up by helper. Patient completes activity by themselves 4 Supervision or touching assist (CGA). [place] provide cues , steadying assist 3 The helper provides less than half the effort to complete the activity 2 The helper provides more than half the effort to complete the activity 1 Dependent. The helper does all the effort to complete an activity 7 Patient refused to complete or attempt activity 9 The patient did not perform the activity before the current illness or injury 88 Not attempted due to Medical conditions or safety concerns Scootin Sit to/from Stand: 5 Sit to Stand (QC): 5 Weight Bearing Right Lower Extremity: Right Weight Bearing/Tolerated Left Lower Extremity: Left Full Weight Bearing Gait Training Does the Patient Walk?: Yes Distance (FIM): 1=693-76 ft Distance: 125' Walk 10 feet (QC): 5 Walk 50 ft with 2 Turns(QC): 5 Gait Level of Assist: 5 Gait Persons Needed: 1 Gait Assistive Device: FWW Pt walks with Ext. Rotation of R Hip while ambulating. Pt reports he has always walked that way. Pt has slow but steady mena, no LOB. Wheelchair Training Does the Pt Use a Wheelchair?: No Exercises Seated Therapy Exercises: Ankle pumps, Long arc quads, Hip flexion, Kicking activity, Hip abd/add (With LLE only due to pain in R side) Seated Reps: 20 NuStep Minutes: 15 NuStep Workload: 6 Treatments Pt transfers from chair to standing using FWW at SBA. Pt uses NuStep for 15m at Workload 6 followed by Seated Ex in chair. Pt ambulates in hallway using FWW at close SBA. Pt uses restroom before resting in recliner at end of tx. Pt is resting with all needs met. Assessment Current Status: Good Progress Pt is still nervous about falling during both ambulation & EX. Pt walks with Ext. Rotation of R hip while ambulating but reports this has been a long time occurrence. PT Short Term Goals Short Term Goals Time Frame: Jul 18, 2017 Transfers (B,C,W/C) (FIM): 4 Gait (FIM): 4 Distance (FIM): 3=150 ft Gait Assistive Device: FWW Wheelchair (FIM): 6 Wheelchair distance (FIM): 3=150 ft Wheelchair Distance: 150 feet x2 PT In House Cra Goals Group Home Goals PT In House Cra Goals Time Frame: Aug 01, 2017 Transfers (B,C,W/C) (FIM): 6 Sit to Lying (QC): 6 Lying-Sitting on Side/Bed(QC): 6 Sit to Stand (QC): 6 Rollin Roll Left to Right (QC): 6 Chair/Xie-xu-Ljhzf Xfer(QC): 6 Car Transfer (QC): 6 Does the Patient Walk: Yes Gait (FIM): 6 Gait distance (FIM): 3=150 ft Walk 10 feet (QC): 6 Walk 10ft-Uneven Surface(QC): 6 Walk 50ft with 2 Turns (QC): 6 Walk 150 ft (QC): 6 Gait Level of Assist: 6 Gait Assistive Device: FWW Does the Pt use WC or Scooter?: No Stairs (FIM): 6 # of Steps: 12 1 Step (curb) (QC): 6 4 Steps (QC): 6 12 Steps (QC): 6 Picking up an Object (QC): 6 PT Plan Problem List Problem List: Activity Tolerance, Functional Strength, Gait Treatment/Plan Treatment Plan: Continue Plan of Care Treatment Plan: Bed Mobility, Education, Functional Activity [place], Functional Strength, Group Therapy, Gait, Safety, Therapeutic Exercise, Transfers Treatment Duration: Aug 01, 2017 Frequency: At least 5 of 7 days/Wk (IRF) Estimated Hrs Per Day: 1.5 hours per day Patient and/or Family Agrees t: Yes Safety Risks/Education Patient Education: Gait Training, Transfer Techniques, Correct Positioning, Safety Issues Teaching Recipient: Patient Teaching Methods: Discussion Response to Teaching: Verbalize Understanding Time/GCodes Time In: 1000 Time Out: 1100 Total Billed Treatment Time: 60 Total Billed Treatment 1, GT (15m), EX x2 (30m) & FA (15m) DEBORAH URBAN FIRE SPRINKLER DESIGNER Jul 09, 2017 11:01
--- NOTE | 2017-07-09 11:17 | Occupational Ther Daily Note ---
OT Current Status-Daily Note Subjective Pt alert, sitting in recliner. Pt declines shower at this time, stating that " I don't see the reason to take a shower when I will be perspiring in therapy." Attempted to tell pt the routine of ARU, pt did not acknowledge understanding or the willingness to compromise. Pt c/o pain, did not rate and stated he does not want to take pain pills and that he wants to his leg to be better 'yesterday '. Mental Status/Objective Patient Orientation: Person, Place, Time, Situation Functional [place] Measure 0=Not Assessed/NA 4=Minimal Assistance 1=Total Assistance 5=Supervision or Setup 2=Maximal Assistance 6=Modified [place] 3=Moderate Assistance 7=Complete [place] ADL-Treatment Functional [place] Measure 0=Not Assessed/NA 4=Minimal Assistance 1=Total Assistance 5=Supervision or Setup 2=Maximal Assistance 6=Modified [place] 3=Moderate Assistance 7=Complete IndependenceIRFPAI Quality Coding Scale 6 Independent with activity with or without an assistive device 5 Patient requires set up or clean up by helper. Patient completes activity by themselves 4 Supervision or touching assist (CGA). [place] provide cues , steadying assist 3 The helper provides less than half the effort to complete the activity 2 The helper provides more than half the effort to complete the activity 1 Dependent. The helper does all the effort to complete an activity 7 Patient refused to complete or attempt activity 9 The patient did not perform the activity before the current illness or injury 88 Not attempted due to Medical conditions or safety concerns Other Treatment Pt ambulated to therapy gym with CGA. Pt then completed arm bike for 8 min at 30 ball resistance to increase strength for daily functional tasks. Pt then completed UE activities with 2# wt attached to arms that worked on strengthening arms and hands for dressing and other functional activities. After therapy, pt left in care of PT in therapy gym. All needs met in room. OT Short Term Goals Short Term Goals Time Frame: Jul 11, 2017 Eating(FIM): 5 Grooming(FIM): 5 Bathing(FIM): 4 Upper Body Dressing(FIM): 5 Lower Body Dressing(FIM): 4 Toileting(FIM): 4 Transfers (B,C,W/C) (FIM): 4 Toilet/Commode Transfer(FIM): 4 Shower Transfer(FIM): 4 Additional Short Term Goals: 1-Demonstrate ADL Tasks, 2-Verbalize Understanding , 3-ImproveStrength/Roney 1=Demonstrate adherence to instructed precautions during ADL tasks. 2=Patient will verbalize/demonstrate understanding of assistive devices/ modifications for ADL. 3=Patient will improve strength/tolerance for activity to enable patient to perform ADL's. OT Practice Managers Goals Half-Way Goals Time Frame: Jul 25, 2017 Eating (FIM): 6 Eating (QC): 6 Groomin Oral Hygiene (QC): 5 Bathing(FIM): 5 Shower/Bathe Self (QC): 5 Upper Body Dressing(FIM): 5 Upper Body Dressing (QC): 5 Lower Body Dressing(FIM): 5 Lower Body Dressing (QC): 5 On/Off Footwear (QC): 5 Toileting(FIM): 6 Toileting Hygiene (QC): 6 Transfers (B,C,W/C) (FIM): 5 Toilet/Commode Transfer(FIM): 6 Toilet/Commode Transfer (QC): 6 Shower Transfer(FIM): 5 Additional Goals: 1-Demonstrate ADL Tasks, 2-Verbalize Understanding, 3- ImproveStrength/Roney 1=Demonstrate adherence to instructed precautions during ADL tasks. 2=Patient will verbalize/demonstrate understanding of assistive devices/ modifications for ADL. 3=Patient will improve strength/tolerance for activity to enable patient to perform ADL's. OT Education/Plan Discharge Recommendations Plan/Recommendations: Continue POC Treatment Plan/Plan of Care Patient would benefit from OT for education, treatment and training to promote independence in ADL's, mobility, safety and/or upper extremity function for ADL' s. Plan of Care: ADL Retraining, Caregiver Training, Functional Mobility, Group Exercise/Act as Ind, UE Funct Exercise/Act Treatment Duration: Jul 25, 2017 Frequency: At least 5 of 7 days/Wk (IRF) Estimated Hrs Per Day: 1.5 hours per day Agreement: Yes Rehab Potential: Good Time/GCodes Start Time: 09:15 Stop Time: 10:00 Total Time Billed (hr/min): 45 Billed Treatment Time 1 visit-EX 3 (45 min) MG ZARATE Jul 09, 2017 11:17
--- NOTE | 2017-07-09 11:18 | PM & R (SOAP) Progress Note ---
Subjective Time Seen by Provider: 08:05 Subjective/Events-last exam Patient was seen in his room this AM Patient SBA for transfers Meds adjusted for constipation Objective Exam Last Set of Vital Signs Vital Signs Date Time Temp Pulse Resp B/P (MAP) Pulse Ox O2 Delivery O2 Flow Rate FiO2 07/09/17 09:00 Room Air 07/09/17 07:52 98.4 07/09/17 05:44 63 18 117/71 (86) 93 Capillary Refill : Less Than 3 Seconds I&O Intake and Output 07/09/17 00:00 Intake Total 1300 ml Output Total 1300 ml Balance 0 ml Intake Oral 1300 ml Output Urine Total 1300 ml # Voids 4 General: Alert, Oriented X3, Cooperative, No Acute Distress HEENT: Atraumatic, PERRLA, EOMI, Mucous Memb Moist/[place] Neck: Supple, No JVD Lungs: Clear to Auscultation Heart: Regular Rate Abdomen: Normal Bowel Sounds, Soft, No Tenderness Extremities: No Edema Skin: Other (incision rt hip healing well) Neuro: Other (Strength funtional BUES and 4+/5 LLE RT HIP flex 2/5 Quads 3/5 Dorsiflexion 4/5 ) Results Lab Laboratory Tests 07/07/17 05:31: Sodium Level 136, Potassium Level 4.2, Chloride Level 101, Carbon Dioxide Level 25, Anion Gap 10, Blood Urea Nitrogen 12, Creatinine 0.67, Estimat Glomerular Filtration Rate > 60, BUN/Creatinine Ratio 18, Glucose Level 140H, Calcium Level 8.9, Total Bilirubin 0.5, Aspartate Amino Transf (AST/SGOT) 17, Alanine Aminotransferase (ALT/SGPT) 19, Alkaline Phosphatase 60, Total Protein 5.9L, Albumin 3.6, Triglycerides Level 111, Cholesterol Level 143, LDL Cholesterol Direct 99, VLDL Cholesterol 22, HDL Cholesterol 25L 07/08/17 06:15: Glucometer 155H 07/09/17 05:25: Glucometer 142H Assessment/Plan Assessment Rt proximal Femur frx s/p IM nailing OSH [place] DM controlled with meds ETOH abuse Tobaccoism curreently abstaining HTN controlled 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
--- NOTE | 2017-07-09 15:07 | Occupational Ther Daily Note ---
OT Current Status-Daily Note Subjective Pt alert, sitting in recliner. Pt agreed to therapy. Pt told GALVIN about social worker school working on getting a bank account ready for him to be able to deposit his SS checks into. Mental Status/Objective Functional [place] Measure 0=Not Assessed/NA 4=Minimal Assistance 1=Total Assistance 5=Supervision or Setup 2=Maximal Assistance 6=Modified [place] 3=Moderate Assistance 7=Complete [place] ADL-Treatment Pt ambulated into bathroom with CGA using FWW. Transferred into shower using grabbar, shower bench and FWW with CGA. Pt doffed shirt, pants and socks with SBA for safety. Pt then bathed self with supervision using grabbar and shower bench. Pt then was able to don shirt by self after set up. Pt required min A to initiate pants over R foot due to inability to lift foot off of ground, donned L by self. SBA to stand and hike over hips. Pt then donned socks by self. Pt then ambulated to sink to complete grooming with SBA. After therapy, pt sitting in recliner with call light/phone in reach. All needs met in room. Functional [place] Measure 0=Not Assessed/NA 4=Minimal Assistance 1=Total Assistance 5=Supervision or Setup 2=Maximal Assistance 6=Modified [place] 3=Moderate Assistance 7=Complete IndependenceIRFPAI Quality Coding Scale 6 Independent with activity with or without an assistive device 5 Patient requires set up or clean up by helper. Patient completes activity by themselves 4 Supervision or touching assist (CGA). [place] provide cues , steadying assist 3 The helper provides less than half the effort to complete the activity 2 The helper provides more than half the effort to complete the activity 1 Dependent. The helper does all the effort to complete an activity 7 Patient refused to complete or attempt activity 9 The patient did not perform the activity before the current illness or injury 88 Not attempted due to Medical conditions or safety concerns Grooming (FIM): 5 Oral Hygiene (QC): 5 Bathing (FIM): 5 Bathing Location: L Arm, R Arm, L Upper Leg, R Upper Leg, L Lower Leg ( including foot), R Lower Leg (including foot), Chest, Abdomen, Buttocks, Perineal Area Shower/Bathe Self (QC): 4 Upper Body (FIM): 5 Upper Body Dressing (QC): 5 Lower Body Dressing (FIM): 4 Lower Body Dressing (QC): 3 On/Off Footwear (QC): 5 Shower Transfer(FIM): 5 OT Short Term Goals Short Term Goals Time Frame: Jul 11, 2017 Eating(FIM): 5 Grooming(FIM): 5 Bathing(FIM): 4 Upper Body Dressing(FIM): 5 Lower Body Dressing(FIM): 4 Toileting(FIM): 4 Transfers (B,C,W/C) (FIM): 4 Toilet/Commode Transfer(FIM): 4 Shower Transfer(FIM): 4 Additional Short Term Goals: 1-Demonstrate ADL Tasks, 2-Verbalize Understanding , 3-ImproveStrength/Roney 1=Demonstrate adherence to instructed precautions during ADL tasks. 2=Patient will verbalize/demonstrate understanding of assistive devices/ modifications for ADL. 3=Patient will improve strength/tolerance for activity to enable patient to perform ADL's. OT Custodial Goals Inspector Poising Goals Time Frame: Jul 25, 2017 Eating (FIM): 6 Eating (QC): 6 Groomin Oral Hygiene (QC): 5 Bathing(FIM): 5 Shower/Bathe Self (QC): 5 Upper Body Dressing(FIM): 5 Upper Body Dressing (QC): 5 Lower Body Dressing(FIM): 5 Lower Body Dressing (QC): 5 On/Off Footwear (QC): 5 Toileting(FIM): 6 Toileting Hygiene (QC): 6 Transfers (B,C,W/C) (FIM): 5 Toilet/Commode Transfer(FIM): 6 Toilet/Commode Transfer (QC): 6 Shower Transfer(FIM): 5 Additional Goals: 1-Demonstrate ADL Tasks, 2-Verbalize Understanding, 3- ImproveStrength/Roney 1=Demonstrate adherence to instructed precautions during ADL tasks. 2=Patient will verbalize/demonstrate understanding of assistive devices/ modifications for ADL. 3=Patient will improve strength/tolerance for activity to enable patient to perform ADL's. OT Education/Plan Discharge Recommendations Plan/Recommendations: Continue POC Treatment Plan/Plan of Care Patient would benefit from OT for education, treatment and training to promote independence in ADL's, mobility, safety and/or upper extremity function for ADL' s. Plan of Care: ADL Retraining, Caregiver Training, Functional Mobility, Group Exercise/Act as Ind, UE Funct Exercise/Act Treatment Duration: Jul 25, 2017 Frequency: At least 5 of 7 days/Wk (IRF) Estimated Hrs Per Day: 1.5 hours per day Agreement: Yes Rehab Potential: Good Time/GCodes Start Time: 12:45 Stop Time: 13:30 Total Time Billed (hr/min): 45 Billed Treatment Time 1 visit-ADL 3 (45 min) MG ZARATE Jul 09, 2017 15:07
--- NOTE | 2017-07-09 16:27 | Physical Therapy Daily Note ---
PT Daily Note-Current Subjective Pt sitting in recliner upon arrival. Pt agrees to PT. Pain Location: No Pain Reported Mental Status Patient Orientation: Person, Place, Situation Transfers Functional [place] Measure 0=Not Assessed/NA 4=Minimal Assistance 1=Total Assistance 5=Supervision or Setup 2=Maximal Assistance 6=Modified [place] 3=Moderate Assistance 7=Complete IndependenceIRFPAI Quality Coding Scale 6 Independent with activity with or without an assistive device 5 Patient requires set up or clean up by helper. Patient completes activity by themselves 4 Supervision or touching assist ([facility]). [place] provide cues , steadying assist 3 The helper provides less than half the effort to complete the activity 2 The helper provides more than half the effort to complete the activity 1 Dependent. The helper does all the effort to complete an activity 7 Patient refused to complete or attempt activity 9 The patient did not perform the activity before the current illness or injury 88 Not attempted due to Medical conditions or safety concerns Scootin Sit to/from Stand: 5 Sit to Stand (QC): 5 Weight Bearing Right Lower Extremity: Right Weight Bearing/Tolerated Left Lower Extremity: Left Full Weight Bearing Gait Training Does the Patient Walk?: Yes Distance (FIM): 3=150 ft Distance: 225' Walk 10 feet (QC): 5 Walk 50 ft with 2 Turns(QC): 5 Walk 150 ft (QC): 5 Gait Level of Assist: 5 Gait Persons Needed: 1 Gait Assistive Device: FWW Pt has a slow mena with Ext. Rotation of R hip during ambulation. Wheelchair Training Does the Pt Use a Wheelchair?: No Treatments Pt transfers from recliner to standing using FWW at [facility]. Pt use restroom then ambulates in [facility] with a couple of rest breaks due to fatigue & weakness reported by pt. Pt returns to room at end of tx with all needs met to rest in recliner. Assessment Current Status: Good Progress Pt is walking farther when encouraged. PT Short Term Goals Short Term Goals Time Frame: Jul 18, 2017 Transfers (B,C,W/C) (FIM): 4 Gait (FIM): 4 Distance (FIM): 3=150 ft Gait Assistive Device: FWW Wheelchair (FIM): 6 Wheelchair distance (FIM): 3=150 ft Wheelchair Distance: 150 feet x2 PT Fpc Goals Fpc Goals PT Medical Scribe Goals Time Frame: Aug 01, 2017 Transfers (B,C,W/C) (FIM): 6 Sit to Lying (QC): 6 Lying-Sitting on Side/Bed(QC): 6 Sit to Stand (QC): 6 Rollin Roll Left to Right (QC): 6 Chair/[id number]-Fwkhf Xfer(QC): 6 Car Transfer (QC): 6 Does the Patient Walk: Yes Gait (FIM): 6 Gait distance (FIM): 3=150 ft Walk 10 feet (QC): 6 Walk 10ft-Uneven Surface(QC): 6 Walk 50ft with 2 Turns (QC): 6 Walk 150 ft (QC): 6 Gait Level of Assist: 6 Gait Assistive Device: FWW Does the Pt use WC or Scooter?: No Stairs (FIM): 6 # of Steps: 12 1 Step (curb) (QC): 6 4 Steps (QC): 6 12 Steps (QC): 6 Picking up an Object (QC): 6 PT Plan Problem List Problem List: Activity Tolerance, Functional Strength, Safety, Balance, Gait Treatment/Plan Treatment Plan: Continue Plan of Care Treatment Plan: Bed Mobility, Education, Functional Activity Roney, Functional Strength, Group Therapy, Gait, Safety, Therapeutic Exercise, Transfers Treatment Duration: Aug 01, 2017 Frequency: At least 5 of 7 days/Wk (IRF) Estimated Hrs Per Day: 1.5 hours per day Patient and/or Family Agrees t: Yes Safety Risks/Education Patient Education: Gait Training, Transfer Techniques, Correct Positioning, Safety Issues Teaching Recipient: Patient Teaching Methods: Discussion Response to Teaching: Verbalize Understanding Time/GCodes Time In: 1330 Time Out: 1400 Total Billed Treatment Time: 30 Total Billed Treatment 1, GT (20m) & FA (10m) DEBORAH URBAN TWISTER FRAME TENDER Jul 09, 2017 16:27
[2017-07-09] MEDS: ALFUZOSIN HCL 10 MG TAB (UROXATRAL) PO SCH (17:25)
[2017-07-09 18:27] VITALS: BP 104/68
[2017-07-09] MEDS: SIMvastatin 10 MG (ZOCOR) TAB PO SCH (20:34)
[2017-07-10 06:08] VITALS: BP 111/70
[2017-07-10] MEDS: SITAGLIPTIN PO SCH ×2 (06:50→17:35)
[2017-07-10] MEDS: MULTIVIT W/MINERALS TAB (THERAGRAN M) PO SCH (06:50)
[2017-07-10] MEDS: METFORMIN PO SCH ×2 (06:50→17:35)
[2017-07-10] MEDS: PIOGLITAZONE 30MG (ACTOS) TAB PO SCH (06:50)
--- NOTE | 2017-07-10 08:25 | Progress Note (SOAP) ---
Subjective Time Seen by Provider: 08:23 Subjective/Events-last exam patient improving each day. Still not able to put his pants on by himself. Doing better with this Objective Exam Vital Signs Date Time Temp Pulse Resp B/P (MAP) Pulse Ox O2 Delivery O2 Flow Rate FiO2 07/10/17 06:08 98.3 62 16 111/70 (84) 95 Room Air 07/09/17 18:27 98.0 73 16 104/68 (80) 96 Room Air 07/09/17 09:00 Room Air I & O 07/10/17 07:00 Intake Total 1150 ml Output Total 2850 ml Balance -1700 ml Capillary Refill : Less Than 3 Seconds General Appearance: No Apparent Distress, WD/WN Results Lab Laboratory Tests 07/10/17 05:34: Glucometer 136H Assessment/Plan Assessment/Plan Assess & Plan/Chief Complaint right hip fracture. Posttraumatic seizure disorder. Ethanol abuse. Tobacco usage. . . Right hip fracture. Posttraumatic seizure disorder. Ethanol abuse. Tobacco usage. Patient weak and needs PT and OT. . 07/08/17 area Right hip fracture. Ethanol abuse. Tobacco usage. patient working hard. Patient states she is improving each day. Patient has not put on his pants yet by himself. . 07/09/17. Right hip fracture. Ethanol abuse. Tobacco usage. Patient ready to work today. sugars under good control. . 07/10/17 Right hip fracture. Ethanol abuse. Tobacco usage. patient improving each day Clinical Quality Measures DVT/VTE Risk/Contraindication: Risk Factor Score Per Nursin RFS Level Per Nursing on Admit: 4+=Very High SHASHANK JACOB DO Jul 10, 2017 08:25
[2017-07-10] MEDS: SENNA W/DOCUSATE (SENOKOT S) TABLET PO SCH ×2 (08:32→20:22)
[2017-07-10] MEDS: carBAMazepine 100 MG (TEGretol) CHEW PO SCH (08:32)
[2017-07-10] MEDS: lisINopril 20 MG (ZESTRIL) TAB PO SCH (08:32)
[2017-07-10] MEDS: ASPIRIN E.C. 81 MG (ECOTRIN) TAB PO SCH (08:32)
--- NOTE | 2017-07-10 08:59 | Occupational Ther Daily Note ---
OT Current Status-Daily Note Subjective Pt alert, sitting in recliner. Pt agreed to therapy. No c/o pain, c/o R LE being stiff. Mental Status/Objective Patient Orientation: Person, Place, Time, Situation Functional [place] Measure 0=Not Assessed/NA 4=Minimal Assistance 1=Total Assistance 5=Supervision or Setup 2=Maximal Assistance 6=Modified [place] 3=Moderate Assistance 7=Complete [place] ADL-Treatment Pt declined shower. Stated that he had already completed grooming this morning. Functional [place] Measure 0=Not Assessed/NA 4=Minimal Assistance 1=Total Assistance 5=Supervision or Setup 2=Maximal Assistance 6=Modified [place] 3=Moderate Assistance 7=Complete IndependenceIRFPAI Quality Coding Scale 6 Independent with activity with or without an assistive device 5 Patient requires set up or clean up by helper. Patient completes activity by themselves 4 Supervision or touching assist (CGA). [place] provide cues , steadying assist 3 The helper provides less than half the effort to complete the activity 2 The helper provides more than half the effort to complete the activity 1 Dependent. The helper does all the effort to complete an activity 7 Patient refused to complete or attempt activity 9 The patient did not perform the activity before the current illness or injury 88 Not attempted due to Medical conditions or safety concerns Other Treatment Pt ambulated to therapy room with SBA using FWW. Completed arm bike for 10 min at 35 ball resistance to strengthen for daily functional tasks. Pt then completed 4 dowel zohreh exercises with 6# wt attached, 3 sets 10 reps. Pt needed assistance to keep count of reps could remember how many sets were completed. Pt then completed theater usher strength exercises 3 sets 10 reps. Pt takes increased time to complete activities due to being easily distracted and conversing with peers and therapists. After therapy, pt sitting in recliner with call light/ phone in reach. All needs met in room. OT Short Term Goals Short Term Goals Time Frame: Jul 11, 2017 Eating(FIM): 5 Grooming(FIM): 5 Bathing(FIM): 4 Upper Body Dressing(FIM): 5 Lower Body Dressing(FIM): 4 Toileting(FIM): 4 Transfers (B,C,W/C) (FIM): 4 Toilet/Commode Transfer(FIM): 4 Shower Transfer(FIM): 4 Additional Short Term Goals: 1-Demonstrate ADL Tasks, 2-Verbalize Understanding , 3-ImproveStrength/Roney 1=Demonstrate adherence to instructed precautions during ADL tasks. 2=Patient will verbalize/demonstrate understanding of assistive devices/ modifications for ADL. 3=Patient will improve strength/tolerance for activity to enable patient to perform ADL's. OT Chcf Goals Reports Analysis Manager Goals Time Frame: Jul 25, 2017 Eating (FIM): 6 Eating (QC): 6 Groomin Oral Hygiene (QC): 5 Bathing(FIM): 5 Shower/Bathe Self (QC): 5 Upper Body Dressing(FIM): 5 Upper Body Dressing (QC): 5 Lower Body Dressing(FIM): 5 Lower Body Dressing (QC): 5 On/Off Footwear (QC): 5 Toileting(FIM): 6 Toileting Hygiene (QC): 6 Transfers (B,C,W/C) (FIM): 5 Toilet/Commode Transfer(FIM): 6 Toilet/Commode Transfer (QC): 6 Shower Transfer(FIM): 5 Additional Goals: 1-Demonstrate ADL Tasks, 2-Verbalize Understanding, 3- ImproveStrength/Roney 1=Demonstrate adherence to instructed precautions during ADL tasks. 2=Patient will verbalize/demonstrate understanding of assistive devices/ modifications for ADL. 3=Patient will improve strength/tolerance for activity to enable patient to perform ADL's. OT Education/Plan Discharge Recommendations Plan/Recommendations: Continue POC Treatment Plan/Plan of Care Patient would benefit from OT for education, treatment and training to promote independence in ADL's, mobility, safety and/or upper extremity function for ADL' s. Plan of Care: ADL Retraining, Caregiver Training, Functional Mobility, Group Exercise/Act as Ind, UE Funct Exercise/Act Treatment Duration: Jul 25, 2017 Frequency: At least 5 of 7 days/Wk (IRF) Estimated Hrs Per Day: 1.5 hours per day Agreement: Yes Rehab Potential: Good Time/GCodes Start Time: 08:00 Stop Time: 09:00 Total Time Billed (hr/min): 60 Billed Treatment Time 1 visit-EX 4 (60 min) MG ZARATE Jul 10, 2017 08:59
--- NOTE | 2017-07-10 10:17 | PM & R (SOAP) Progress Note ---
Subjective Time Seen by Provider: 08:20 Subjective/Events-last exam Patient was seen in [facility] this AM Progressing well with therapies Patient SBA for transfers Eating and sleeping OK Pain control adequate.DM accucheks show good control Objective Exam Last Set of Vital Signs Vital Signs Date Time Temp Pulse Resp B/P (MAP) Pulse Ox O2 Delivery O2 Flow Rate FiO2 07/10/17 06:08 98.3 62 16 111/70 (84) 95 Room Air Capillary Refill : Less Than 3 Seconds I&O Intake and Output 07/10/17 00:00 Intake Total 1100 ml Output Total 1925 ml Balance -825 ml Intake Oral 1100 ml Output Urine Total 1925 ml # Bowel Movements 1 General: Alert, Oriented X3, Cooperative, No Acute Distress HEENT: Atraumatic, PERRLA, EOMI, Mucous Memb Moist/[place], Other (defect left parietal skull) Neck: Supple, No JVD Lungs: Clear to Auscultation Heart: Regular Rate Abdomen: Normal Bowel Sounds, Soft, No Tenderness Extremities: No Edema Skin: Other (incision rt hip healing well) Neuro: Other (Strength funtional BUES and 4+/5 LLE RT HIP flex 2/5 Quads 3/5 Dorsiflexion 4/5 ) Results Lab Laboratory Tests 07/08/17 06:15: Glucometer 155H 07/09/17 05:25: Glucometer 142H 07/10/17 05:34: Glucometer 136H Assessment/Plan Assessment Rt proximal Femur frx s/p IM nailing OSH [place] DM controlled with meds ETOH abuse Tobaccoism curreently abstaining HTN controlled 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
--- NOTE | 2017-07-10 10:19 | Physical Therapy Daily Note ---
PT Daily Note-Current Subjective Agrees to Rx. States he may need a stool softener. Expresses fear of steps but accomplishes them encouragement and instruction Pain Numeric Pain Scale: 4 Location: Right Location Body Site: Hip Pain Description: Pressure Transfers Functional [place] Measure 0=Not Assessed/NA 4=Minimal Assistance 1=Total Assistance 5=Supervision or Setup 2=Maximal Assistance 6=Modified [place] 3=Moderate Assistance 7=Complete IndependenceIRFPAI Quality Coding Scale 6 Independent with activity with or without an assistive device 5 Patient requires set up or clean up by helper. Patient completes activity by themselves 4 Supervision or touching assist (CGA). [place] provide cues , steadying assist 3 The helper provides less than half the effort to complete the activity 2 The helper provides more than half the effort to complete the activity 1 Dependent. The helper does all the effort to complete an activity 7 Patient refused to complete or attempt activity 9 The patient did not perform the activity before the current illness or injury 88 Not attempted due to Medical conditions or safety concerns Transfers (B, C, W/C) (FIM): 5 Scootin Rollin Supine to/from Sit: 5 Sit to/from Stand: 5 Bed to/from Chair: 5 Weight Bearing Right Lower Extremity: Right Weight Bearing/Tolerated Left Lower Extremity: Left Full Weight Bearing Gait Training Does the Patient Walk?: Yes Gait (FIM): 5 Distance (FIM): 3=150 ft (x2) Gait Level of Assist: 5 Gait Persons Needed: 1 Gait Assistive Device: FWW Stair Training Stair Training: Handrails/: 2 handrails Stairs (FIM): 2 #of Steps: 4 Stairs: Pattern: Step to Level of Assist: 4 Exercises Supine Ex: Ankle pumps, Quad Set, Rolling, Glut sets, Heel Slides, Short Arc Quads, Scooting, Straight leg raise (x4 w asssit), Hip abd/add Supine Reps: 12 Seated Therapy Exercises: Ankle pumps, Sit to stand, Long arc quads Seated Reps: 12 Assessment Current Status: Good Progress PT Short Term Goals Short Term Goals Time Frame: Jul 18, 2017 Transfers (B,C,W/C) (FIM): 4 Gait (FIM): 4 Distance (FIM): 3=150 ft Gait Assistive Device: FWW Wheelchair (FIM): 6 Wheelchair distance (FIM): 3=150 ft Wheelchair Distance: 150 feet x2 PT [place]eneer Taper Goals [place] Taper Goals PT [place] Taper Goals Time Frame: Aug 01, 2017 Transfers (B,C,W/C) (FIM): 6 Sit to Lying (QC): 6 Lying-Sitting on Side/Bed(QC): 6 Sit to Stand (QC): 6 Rollin Roll Left to Right (QC): 6 Chair/Ffg-qd-Tghhu Xfer(QC): 6 Car Transfer (QC): 6 Does the Patient Walk: Yes Gait (FIM): 6 Gait distance (FIM): 3=150 ft Walk 10 feet (QC): 6 Walk 10ft-Uneven Surface(QC): 6 Walk 50ft with 2 Turns (QC): 6 Walk 150 ft (QC): 6 Gait Level of Assist: 6 Gait Assistive Device: FWW Does the Pt use WC or Scooter?: No Stairs (FIM): 6 # of Steps: 12 1 Step (curb) (QC): 6 4 Steps (QC): 6 12 Steps (QC): 6 Picking up an Object (QC): 6 PT Plan Treatment/Plan Treatment Plan: Continue Plan of Care Treatment Plan: Bed Mobility, Education, Functional Activity Roney, Functional Strength, Group Therapy, Gait, Safety, Therapeutic Exercise, Transfers Treatment Duration: Aug 01, 2017 Frequency: At least 5 of 7 days/Wk (IRF) Estimated Hrs Per Day: 1.5 hours per day Patient and/or Family Agrees t: Yes Safety Risks/Education Patient Education: Gait Training, Transfer Techniques, Steps Teaching Recipient: Patient, Primary Caregiver Teaching Methods: Discussion Response to Teaching: Verbalize Understanding, Return Demonstration, Reinforcement Needed Time/GCodes Time In: 930 Time Out: 1015 Total Billed Treatment Time: 45 Total Billed Treatment 1,FA15,GT15,EX15 G Codes Necessary: ROSY Luu INVENTORY CONTROL ASSISTANT Jul 10, 2017 10:19
--- NOTE | 2017-07-10 14:54 | Therapy Group Daily Note ---
Therapy Daily Group Note Patient Education Topic Other List Below (pain) Exercises LE Seated Exercise, UE Exercise Other/Notes Pt ambulated to and from OT/PT in [facility] area with SBA using FWW. OT/PT group consisted of introductions (name, place born, proudest moment), socialization, pain education, memory activity, UE/LE seated exercises and giving an inspirational word to peers. Pt was able to introduce self appropriately and gave an indepth description of life and proudest moment. Pt was attentive throughout education and verbalized strategies used for pain management. Pt was unable to remember 3 words (color, number, letter) from previous group. [facility] project management instructor came to give prayer prior to group then introduced self and listened to pt's introductions. Pt was able to complete UE/LE seated exercises without difficulty. As group was finishing each pt was able to give and inspirational word for peers to think on throughout the weekend. After therapy , pt sitting in recliner with call light/phone in reach. All needs met in room. Start Time: 13:00 Stop Time: 14:20 Total Billed Treatment Time: 80 Total Billed Treatment 1-GRP MG ZARATE Jul 10, 2017 14:54
[2017-07-10 16:44] VITALS: BP 126/76
[2017-07-10] MEDS: ALFUZOSIN HCL 10 MG TAB (UROXATRAL) PO SCH (17:16)
[2017-07-10] MEDS: SIMvastatin 10 MG (ZOCOR) TAB PO SCH (20:22)
[2017-07-11 03:17] VITALS: BP 109/67
[2017-07-11] MEDS: PIOGLITAZONE 30MG (ACTOS) TAB PO SCH (07:00)
[2017-07-11] MEDS: MULTIVIT W/MINERALS TAB (THERAGRAN M) PO SCH (07:00)
[2017-07-11] MEDS: SITAGLIPTIN PO SCH ×2 (07:42→17:33)
[2017-07-11] MEDS: METFORMIN PO SCH ×2 (07:42→17:33)
[2017-07-11] MEDS: lisINopril 20 MG (ZESTRIL) TAB PO SCH (08:16)
[2017-07-11] MEDS: ASPIRIN E.C. 81 MG (ECOTRIN) TAB PO SCH (08:16)
[2017-07-11] MEDS: SENNA W/DOCUSATE (SENOKOT S) TABLET PO SCH ×2 (08:17→20:03)
[2017-07-11] MEDS: carBAMazepine 100 MG (TEGretol) CHEW PO SCH (08:17)
--- NOTE | 2017-07-11 12:44 | Physical Therapy Daily Note ---
PT Daily Note-Current Subjective Pain rated 7.9/10 in (R) hip. Pt requests urinal. Pt agreeable to treatment. Pt admits "fear" is a limiting factor during stair training. Mental Status Patient Orientation: Person, Place Transfers Functional [place] Measure 0=Not Assessed/NA 4=Minimal Assistance 1=Total Assistance 5=Supervision or Setup 2=Maximal Assistance 6=Modified [place] 3=Moderate Assistance 7=Complete IndependenceIRFPAI Quality Coding Scale 6 Independent with activity with or without an assistive device 5 Patient requires set up or clean up by helper. Patient completes activity by themselves 4 Supervision or touching assist (CGA). [place] provide cues , steadying assist 3 The helper provides less than half the effort to complete the activity 2 The helper provides more than half the effort to complete the activity 1 Dependent. The helper does all the effort to complete an activity 7 Patient refused to complete or attempt activity 9 The patient did not perform the activity before the current illness or injury 88 Not attempted due to Medical conditions or safety concerns Weight Bearing Right Lower Extremity: Right Weight Bearing/Tolerated Left Lower Extremity: Left Full Weight Bearing Gait Training Gait Assistive Device: FWW Pt amb with FWW and CGA-SBA 2 x 160ft. Pt amb with (R) foot ER'd, WBAT. Pt does not correct alignment of (R) LE despite vc's. Pt ambulates up/down steps of 4 with max vc's for sequence and manual bracing of R knee during decent. Exercises NuStep Minutes: 5 NuStep Workload: 7 Assessment Current Status: Good Progress Pt radha well. Pt back to bedside chair with call light and all needs met. PT Short Term Goals Short Term Goals Time Frame: Jul 18, 2017 Transfers (B,C,W/C) (FIM): 4 Gait (FIM): 4 Distance (FIM): 3=150 ft Gait Assistive Device: FWW Wheelchair (FIM): 6 Wheelchair distance (FIM): 3=150 ft Wheelchair Distance: 150 feet x2 PT Director Furniture Goals Shelter Goals PT Director Furniture Goals Time Frame: Aug 01, 2017 Transfers (B,C,W/C) (FIM): 6 Sit to Lying (QC): 6 Lying-Sitting on Side/Bed(QC): 6 Sit to Stand (QC): 6 Rollin Roll Left to Right (QC): 6 Chair/Bom-ya-Gyljw Xfer(QC): 6 Car Transfer (QC): 6 Does the Patient Walk: Yes Gait (FIM): 6 Gait distance (FIM): 3=150 ft Walk 10 feet (QC): 6 Walk 10ft-Uneven Surface(QC): 6 Walk 50ft with 2 Turns (QC): 6 Walk 150 ft (QC): 6 Gait Level of Assist: 6 Gait Assistive Device: FWW Does the Pt use WC or Scooter?: No Stairs (FIM): 6 # of Steps: 12 1 Step (curb) (QC): 6 4 Steps (QC): 6 12 Steps (QC): 6 Picking up an Object (QC): 6 PT Plan Treatment/Plan Treatment Plan: Continue Plan of Care Treatment Plan: Bed Mobility, Education, Functional Activity Roney, Functional Strength, Group Therapy, Gait, Safety, Therapeutic Exercise, Transfers Treatment Duration: Aug 01, 2017 Frequency: At least 5 of 7 days/Wk (IRF) Estimated Hrs Per Day: 1.5 hours per day Patient and/or Family Agrees t: Yes Time/GCodes Time In: 820 Time Out: 850 Total Billed Treatment Time: 30 Total Billed Treatment 1, Gait 15', Ex 15' IRINA LENTZ CPTA Jul 11, 2017 12:44
[2017-07-11] MEDS: ALFUZOSIN HCL 10 MG TAB (UROXATRAL) PO SCH (17:32)
[2017-07-11 18:30] VITALS: BP 117/72
[2017-07-11] MEDS: SIMvastatin 10 MG (ZOCOR) TAB PO SCH (20:03)
[2017-07-12 05:25] VITALS: BP 114/65
[2017-07-12] MEDS: SITAGLIPTIN PO SCH ×2 (06:06→17:35)
[2017-07-12] MEDS: PIOGLITAZONE 30MG (ACTOS) TAB PO SCH (06:06)
[2017-07-12] MEDS: MULTIVIT W/MINERALS TAB (THERAGRAN M) PO SCH (06:06)
[2017-07-12] MEDS: METFORMIN PO SCH ×2 (06:06→17:35)
[2017-07-12] MEDS: lisINopril 20 MG (ZESTRIL) TAB PO SCH (08:50)
[2017-07-12] MEDS: carBAMazepine 100 MG (TEGretol) CHEW PO SCH (08:50)
[2017-07-12] MEDS: SENNA W/DOCUSATE (SENOKOT S) TABLET PO SCH ×3 (08:50→20:34)
[2017-07-12] MEDS: ASPIRIN E.C. 81 MG (ECOTRIN) TAB PO SCH (08:50)
[2017-07-12] MEDS: ALFUZOSIN HCL 10 MG TAB (UROXATRAL) PO SCH (17:35)
[2017-07-12 18:48] VITALS: BP 99/60
[2017-07-12] MEDS: SIMvastatin 10 MG (ZOCOR) TAB PO SCH (20:34)
[2017-07-13 02:00] VITALS: BP 100/53
[2017-07-13] MEDS: HYDROcodone/APAP 5 MG/325 MG (LORTAB) TAB PO PRN (02:04)
[2017-07-13] MEDS: MULTIVIT W/MINERALS TAB (THERAGRAN M) PO SCH (06:58)
[2017-07-13] MEDS: PIOGLITAZONE 30MG (ACTOS) TAB PO SCH (06:58)
--- NOTE | 2017-07-13 08:29 | Progress Note (SOAP) ---
Subjective Time Seen by Provider: 08:25 Subjective/Events-last exam ight hip fracture. Patient still not able to put on his pain in's. Patient stated he did not have a good night sleep last night Objective Exam Vital Signs Date Time Temp Pulse Resp B/P (MAP) Pulse Ox O2 Delivery O2 Flow Rate FiO2 07/13/17 02:00 98.8 63 16 100/53 (69) 93 Room Air 07/12/17 18:48 96.5 60 20 99/60 (73) 100 Room Air 07/12/17 08:42 Room Air I & O 07/13/17 06:59 Intake Total 1365 ml Output Total 2000 ml Balance -635 ml Capillary Refill : Less Than 3 Seconds General Appearance: No Apparent Distress, WD/WN HEENT: Normal ENT Inspection Neck: Full Range of Motion Respiratory: Lungs Clear, No Accessory Muscle Use, No Respiratory Distress Cardiovascular: Regular Rate, Rhythm, No Murmur Results Lab Laboratory Tests 07/13/17 05:43: Glucometer 123H Assessment/Plan Assessment/Plan Assess & Plan/Chief Complaint right hip fracture. Posttraumatic seizure disorder. Ethanol abuse. Tobacco usage. . . Right hip fracture. Posttraumatic seizure disorder. Ethanol abuse. Tobacco usage. Patient weak and needs PT and OT. . 07/08/17 area Right hip fracture. Ethanol abuse. Tobacco usage. patient working hard. Patient states she is improving each day. Patient has not put on his pants yet by himself. . 07/09/17. Right hip fracture. Ethanol abuse. Tobacco usage. Patient ready to work today. sugars under good control. . 07/10/17 Right hip fracture. Ethanol abuse. Tobacco usage. patient improving each day. . 07/13/17. Right hip fracture. Ethanol abuse. Tobacco usage. Patient still not able to put on his pants Clinical Quality Measures DVT/VTE Risk/Contraindication: Risk Factor Score Per Nursin RFS Level Per Nursing on Admit: 4+=Very High SHASHANK JACOB DO Jul 13, 2017 08:28
[2017-07-13] MEDS: SENNA W/DOCUSATE (SENOKOT S) TABLET PO SCH ×2 (08:36→19:47)
[2017-07-13] MEDS: lisINopril 20 MG (ZESTRIL) TAB PO SCH (08:36)
[2017-07-13] MEDS: carBAMazepine 100 MG (TEGretol) CHEW PO SCH (08:36)
[2017-07-13] MEDS: METFORMIN PO SCH ×2 (08:36→17:16)
[2017-07-13] MEDS: SITAGLIPTIN PO SCH ×2 (08:36→17:16)
[2017-07-13] MEDS: ASPIRIN E.C. 81 MG (ECOTRIN) TAB PO SCH (08:36)
--- NOTE | 2017-07-13 10:37 | Occupational Ther Daily Note ---
OT Current Status-Daily Note Subjective Pt seen in gym after PT, agreeable to OT. No pain mentioned. Appearance Alert, cooperative Mental Status/Objective Functional [place] Measure 0=Not Assessed/NA 4=Minimal Assistance 1=Total Assistance 5=Supervision or Setup 2=Maximal Assistance 6=Modified [place] 3=Moderate Assistance 7=Complete [place] ADL-Treatment Functional [place] Measure 0=Not Assessed/NA 4=Minimal Assistance 1=Total Assistance 5=Supervision or Setup 2=Maximal Assistance 6=Modified [place] 3=Moderate Assistance 7=Complete IndependenceIRFPAI Quality Coding Scale 6 Independent with activity with or without an assistive device 5 Patient requires set up or clean up by helper. Patient completes activity by themselves 4 Supervision or touching assist (CGA). [place] provide cues , steadying assist 3 The helper provides less than half the effort to complete the activity 2 The helper provides more than half the effort to complete the activity 1 Dependent. The helper does all the effort to complete an activity 7 Patient refused to complete or attempt activity 9 The patient did not perform the activity before the current illness or injury 88 Not attempted due to Medical conditions or safety concerns Other Treatment Pt did 13 minutes bilat UE exercise with arm bike set at 30W resistance ( increased time so decreased resistance), with only occasional brief recovery periods. To strengthen arms to help with transfers and ADLs. Pt slowly walked back to room with CGA for safety, FWW, and left up in recliner, with all needs met. Education OT Patient Education: Exercise program, Purpose of tx/functional activities Teaching Recipient: Patient Teaching Methods: Discussion Response to Teaching: Verbalize Understanding OT Short Term Goals Short Term Goals Time Frame: Jul 11, 2017 Eating(FIM): 5 Grooming(FIM): 5 Bathing(FIM): 4 Upper Body Dressing(FIM): 5 Lower Body Dressing(FIM): 4 Toileting(FIM): 4 Transfers (B,C,W/C) (FIM): 4 Toilet/Commode Transfer(FIM): 4 Shower Transfer(FIM): 4 Additional Short Term Goals: 1-Demonstrate ADL Tasks, 2-Verbalize Understanding , 3-ImproveStrength/Roney 1=Demonstrate adherence to instructed precautions during ADL tasks. 2=Patient will verbalize/demonstrate understanding of assistive devices/ modifications for ADL. 3=Patient will improve strength/tolerance for activity to enable patient to perform ADL's. OT Penitentiary Goals Penitentiary Goals Time Frame: Jul 25, 2017 Eating (FIM): 6 Eating (QC): 6 Groomin Oral Hygiene (QC): 5 Bathing(FIM): 5 Shower/Bathe Self (QC): 5 Upper Body Dressing(FIM): 5 Upper Body Dressing (QC): 5 Lower Body Dressing(FIM): 5 Lower Body Dressing (QC): 5 On/Off Footwear (QC): 5 Toileting(FIM): 6 Toileting Hygiene (QC): 6 Transfers (B,C,W/C) (FIM): 5 Toilet/Commode Transfer(FIM): 6 Toilet/Commode Transfer (QC): 6 Shower Transfer(FIM): 5 Additional Goals: 1-Demonstrate ADL Tasks, 2-Verbalize Understanding, 3- ImproveStrength/Roney 1=Demonstrate adherence to instructed precautions during ADL tasks. 2=Patient will verbalize/demonstrate understanding of assistive devices/ modifications for ADL. 3=Patient will improve strength/tolerance for activity to enable patient to perform ADL's. OT Education/Plan Discharge Recommendations Plan/Recommendations: Continue POC Treatment Plan/Plan of Care Patient would benefit from OT for education, treatment and training to promote independence in ADL's, mobility, safety and/or upper extremity function for ADL' s. Plan of Care: ADL Retraining, Caregiver Training, Functional Mobility, Group Exercise/Act as Ind, UE Funct Exercise/Act Treatment Duration: Jul 25, 2017 Frequency: At least 5 of 7 days/Wk (IRF) Estimated Hrs Per Day: 1.5 hours per day Agreement: Yes Rehab Potential: Good Time/GCodes Start Time: 09:00 Stop Time: 09:30 Total Time Billed (hr/min): 30 Billed Treatment Time visit, 30 minutes exercise FANG BRYSON OT Jul 13, 2017 10:36
--- NOTE | 2017-07-13 10:57 | Physical Therapy Daily Note ---
PT Daily Note-Current Subjective Pt rates pain 23.5/10 in (R) hip. Pt c/o he did not get any sleep at all last night due to nursing coming in and checking on him each hour. Pt pleasant and agreeable throughout treatment but tends to yell out in pain with transitions from supine to hooklying or long sitting to supine. Appearance Pt dressed and sitting in bedside chair upon arrival. Mental Status Patient Orientation: Person, Place, Situation Transfers Functional [place] Measure 0=Not Assessed/NA 4=Minimal Assistance 1=Total Assistance 5=Supervision or Setup 2=Maximal Assistance 6=Modified [place] 3=Moderate Assistance 7=Complete IndependenceIRFPAI Quality Coding Scale 6 Independent with activity with or without an assistive device 5 Patient requires set up or clean up by helper. Patient completes activity by themselves 4 Supervision or touching assist (CGA). [place] provide cues , steadying assist 3 The helper provides less than half the effort to complete the activity 2 The helper provides more than half the effort to complete the activity 1 Dependent. The helper does all the effort to complete an activity 7 Patient refused to complete or attempt activity 9 The patient did not perform the activity before the current illness or injury 88 Not attempted due to Medical conditions or safety concerns transfers mod (I) all levels Weight Bearing Right Lower Extremity: Right Weight Bearing/Tolerated Left Lower Extremity: Left Full Weight Bearing Gait Training Gait Assistive Device: FWW Pt amb with TREMAYNE MAIER 1 x 350ft Stair Training Practiced steps of 4, 1x. Pt requires max vc's for sequence and manual bracing of (R) knee for stabilization during decent. Exercises Supine Ex: LE Protocol Supine Reps: 20 Seated Therapy Exercises: Long arc quads Seated Reps: 20 NuStep Minutes: 15 NuStep Workload: 6 Assessment Current Status: Good Progress, Fair Progress Pt able to complete all ther ex. Pt uses his hands to place (R) LE onto pedal of nu-step and uses hands to lift (R) LE onto the mat. Pt requires manual stabilization of (R) knee during decent of stairs as his knee tends to buckle with weightbearing despite vc's to fire quad. Quad strength fluctuates depending on pt effort, presents with 3+/5 at best. Pt relies on his UE during weightbearing. Pt in care of OT post therapy. PT Short Term Goals Short Term Goals Time Frame: Jul 18, 2017 Transfers (B,C,W/C) (FIM): 4 Gait (FIM): 4 Distance (FIM): 3=150 ft Gait Assistive Device: FWW Wheelchair (FIM): 6 Wheelchair distance (FIM): 3=150 ft Wheelchair Distance: 150 feet x2 PT Cigar Roller Goals Cigar Roller Goals PT Penitentiary Goals Time Frame: Aug 01, 2017 Transfers (B,C,W/C) (FIM): 6 Sit to Lying (QC): 6 Lying-Sitting on Side/Bed(QC): 6 Sit to Stand (QC): 6 Rollin Roll Left to Right (QC): 6 Chair/Ckt-fw-Xqakk Xfer(QC): 6 Car Transfer (QC): 6 Does the Patient Walk: Yes Gait (FIM): 6 Gait distance (FIM): 3=150 ft Walk 10 feet (QC): 6 Walk 10ft-Uneven Surface(QC): 6 Walk 50ft with 2 Turns (QC): 6 Walk 150 ft (QC): 6 Gait Level of Assist: 6 Gait Assistive Device: FWW Does the Pt use WC or Scooter?: No Stairs (FIM): 6 # of Steps: 12 1 Step (curb) (QC): 6 4 Steps (QC): 6 12 Steps (QC): 6 Picking up an Object (QC): 6 PT Plan Treatment/Plan Treatment Plan: Continue Plan of Care Treatment Plan: Bed Mobility, Education, Functional Activity Roney, Functional Strength, Group Therapy, Gait, Safety, Therapeutic Exercise, Transfers Treatment Duration: Aug 01, 2017 Frequency: At least 5 of 7 days/Wk (IRF) Estimated Hrs Per Day: 1.5 hours per day Patient and/or Family Agrees t: Yes Time/GCodes Time In: 815 Time Out: 900 Total Billed Treatment Time: 45 Total Billed Treatment 1, gait 15min, ther ex 30 min IRINA LENTZ CPTFernanda Jul 13, 2017 10:57
--- NOTE | 2017-07-13 11:19 | Physical Therapy Daily Note ---
PT Daily Note-Current Subjective Pt agreeable and ready to go to PT. Pain rated 17/10 (R) hip Mental Status Patient Orientation: Person, Place, Situation Transfers Functional [place] Measure 0=Not Assessed/NA 4=Minimal Assistance 1=Total Assistance 5=Supervision or Setup 2=Maximal Assistance 6=Modified [place] 3=Moderate Assistance 7=Complete IndependenceIRFPAI Quality Coding Scale 6 Independent with activity with or without an assistive device 5 Patient requires set up or clean up by helper. Patient completes activity by themselves 4 Supervision or touching assist (CGA). [place] provide cues , steadying assist 3 The helper provides less than half the effort to complete the activity 2 The helper provides more than half the effort to complete the activity 1 Dependent. The helper does all the effort to complete an activity 7 Patient refused to complete or attempt activity 9 The patient did not perform the activity before the current illness or injury 88 Not attempted due to Medical conditions or safety concerns mod (I) all levels Weight Bearing Right Lower Extremity: Right Weight Bearing/Tolerated Left Lower Extremity: Left Full Weight Bearing Gait Training Gait Assistive Device: FWW Pt amb with FWW 2 x 150ft, SBA. (R) LE WBAT but relies heavily on (B) UE during weightbearing of (R) LE. (R) LE ER'd despite vc's to correct Stair Training Practiced steps of 4 with max vc's for sequence and manual bracing of (R) knee during decent. Exercises Supine Ex: LE Protocol Supine Reps: 20 Seated Therapy Exercises: Long arc quads Seated Reps: 40 Standing TKE with yellow tband x 20 Assessment Current Status: Good Progress Tess well despite high pain level denotation. Pt back to bedside chair with call light and all needs met. PT Short Term Goals Short Term Goals Time Frame: Jul 18, 2017 Transfers (B,C,W/C) (FIM): 4 Gait (FIM): 4 Distance (FIM): 3=150 ft Gait Assistive Device: FWW Wheelchair (FIM): 6 Wheelchair distance (FIM): 3=150 ft Wheelchair Distance: 150 feet x2 PT Longterm Goals Test Director Goals PT Longterm Goals Time Frame: Aug 01, 2017 Transfers (B,C,W/C) (FIM): 6 Sit to Lying (QC): 6 Lying-Sitting on Side/Bed(QC): 6 Sit to Stand (QC): 6 Rollin Roll Left to Right (QC): 6 Chair/W[facility] Xfer(QC): 6 Car Transfer (QC): 6 Does the Patient Walk: Yes Gait (FIM): 6 Gait distance (FIM): 3=150 ft Walk 10 feet (QC): 6 Walk 10ft-Uneven Surface(QC): 6 Walk 50ft with 2 Turns (QC): 6 Walk 150 ft (QC): 6 Gait Level of Assist: 6 Gait Assistive Device: FWW Does the Pt use WC or Scooter?: No Stairs (FIM): 6 # of Steps: 12 1 Step (curb) (QC): 6 4 Steps (QC): 6 12 Steps (QC): 6 Picking up an Object (QC): 6 PT Plan Treatment/Plan Treatment Plan: Continue Plan of Care Treatment Plan: Bed Mobility, Education, Functional Activity Roney, Functional Strength, Group Therapy, Gait, Safety, Therapeutic Exercise, Transfers Treatment Duration: Aug 01, 2017 Frequency: At least 5 of 7 days/Wk (IRF) Estimated Hrs Per Day: 1.5 hours per day Patient and/or Family Agrees t: Yes Time/GCodes Time In: 1000 Time Out: 1045 Total Billed Treatment Time: 45 Total Billed Treatment 1, gait x 15min, ther ex 30 min IRINA LENTZ CPTA Jul 13, 2017 11:19
--- NOTE | 2017-07-13 14:37 | PM & R (SOAP) Progress Note ---
Subjective Time Seen by Provider: 12:20 Subjective/Events-last exam Patient was seen in his room this noonhour Patient SBA for transfers Patient asks about staple removal I have followed up with RN about this Objective Exam Last Set of Vital Signs Vital Signs Date Time Temp Pulse Resp B/P (MAP) Pulse Ox O2 Delivery O2 Flow Rate FiO2 07/13/17 09:00 Room Air 07/13/17 02:00 98.8 63 16 100/53 (69) 93 Capillary Refill : Less Than 3 Seconds I&O Intake and Output 07/13/17 00:00 Intake Total 1475 ml Output Total 2200 ml Balance -725 ml Intake Oral 1475 ml Output Urine Total 2200 ml General: Alert, Oriented X3, Cooperative, No Acute Distress HEENT: Atraumatic, PERRLA, EOMI, Mucous Memb Moist/[place], Other (defect left parietal skull) Neck: Supple, No JVD Lungs: Clear to Auscultation Heart: Regular Rate Abdomen: Normal Bowel Sounds, Soft, No Tenderness Extremities: No Edema Skin: Other (incision rt hip healing well) Neuro: Other (Strength funtional BUES and 4+/5 LLE RT HIP flex 2/5 Quads 3/5 Dorsiflexion 4/5 ) Results Lab Laboratory Tests 07/11/17 06:59: Glucometer 152H 07/12/17 06:00: Glucometer 159H 07/13/17 05:43: Glucometer 123H Assessment/Plan Assessment Rt proximal Femur frx s/p IM nailing OSH [place] DM controlled with meds ETOH abuse Tobaccoism curreently abstaining HTN controlled 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
--- NOTE | 2017-07-13 15:18 | Therapy Group Daily Note ---
Therapy Daily Group Note Other/Notes Pt. participated in group therapy this PM which consisted of introduction of self to the group and upper and lower extremity exercises x 10 reps of 12 exercises. Pt. read instructions for a specific exercise aloud and led the group in the exercise. Pt was able to read the exercise aloud and demonstrate to the group how to perform. He was paticipatory and engaged in group this date. He was able to ambulate to from group with FWW with supervision only. He was up in his chair post treatment with his needs met. Start Time: 12:50 Stop Time: 13:50 Total Billed Treatment Time: 60 Total Billed Treatment visit GRP 60 MG URIBE PT Jul 13, 2017 15:18
[2017-07-13] MEDS: ALFUZOSIN HCL 10 MG TAB (UROXATRAL) PO SCH (17:16)
[2017-07-13 17:28] VITALS: BP 117/82
[2017-07-13] MEDS: SIMvastatin 10 MG (ZOCOR) TAB PO SCH (20:02)
[2017-07-14 05:46] VITALS: BP 117/67
[2017-07-14] MEDS: SITAGLIPTIN PO SCH ×2 (06:41→17:16)
[2017-07-14] MEDS: MULTIVIT W/MINERALS TAB (THERAGRAN M) PO SCH (06:41)
[2017-07-14] MEDS: METFORMIN PO SCH ×2 (06:41→17:16)
[2017-07-14] MEDS: PIOGLITAZONE 30MG (ACTOS) TAB PO SCH (06:41)
--- NOTE | 2017-07-14 08:11 | Progress Note (SOAP) ---
Subjective Time Seen by Provider: 08:05 Subjective/Events-last exam patient states each day he is improving. Patient feels she's getting stronger. Patient complaining of less pain. Objective Exam Vital Signs Date Time Temp Pulse Resp B/P (MAP) Pulse Ox O2 Delivery O2 Flow Rate FiO2 07/14/17 05:46 98.4 70 18 117/67 (84) 96 Room Air 07/13/17 17:28 97.7 68 16 117/82 (94) 98 Room Air 07/13/17 09:00 Room Air I & O 07/14/17 07:00 Intake Total 1400 ml Output Total 1840 ml Balance -440 ml Capillary Refill : Less Than 3 Seconds General Appearance: No Apparent Distress, WD/WN HEENT: Normal ENT Inspection Neck: Full Range of Motion, Normal Inspection Respiratory: Chest Non Tender, Normal Breath Sounds, No Accessory Muscle Use, No Respiratory Distress Cardiovascular: No Murmur Results Lab Laboratory Tests 07/14/17 05:14: Glucometer 152H Assessment/Plan Assessment/Plan Assess & Plan/Chief Complaint right hip fracture. Posttraumatic seizure disorder. Ethanol abuse. Tobacco usage. . . Right hip fracture. Posttraumatic seizure disorder. Ethanol abuse. Tobacco usage. Patient weak and needs PT and OT. . 07/08/17 area Right hip fracture. Ethanol abuse. Tobacco usage. patient working hard. Patient states she is improving each day. Patient has not put on his pants yet by himself. . 07/09/17. Right hip fracture. Ethanol abuse. Tobacco usage. Patient ready to work today. sugars under good control. . 07/10/17 Right hip fracture. Ethanol abuse. Tobacco usage. patient improving each day. . 07/13/17. Right hip fracture. Ethanol abuse. Tobacco usage. Patient still not able to put on his pants. . 07/14/17 Right hip fracture. ethanol abuse. Tobacco usage. Diabetes under control posttraumatic seizure disorder Clinical Quality Measures DVT/VTE Risk/Contraindication: Risk Factor Score Per Nursin RFS Level Per Nursing on Admit: 4+=Very High SHASHANK JACOB DO Jul 14, 2017 08:11
[2017-07-14] MEDS: SENNA W/DOCUSATE (SENOKOT S) TABLET PO SCH ×2 (08:23→19:26)
[2017-07-14] MEDS: lisINopril 20 MG (ZESTRIL) TAB PO SCH (08:23)
[2017-07-14] MEDS: ASPIRIN E.C. 81 MG (ECOTRIN) TAB PO SCH (08:23)
[2017-07-14] MEDS: carBAMazepine 100 MG (TEGretol) CHEW PO SCH (08:23)
--- NOTE | 2017-07-14 10:04 | Physical Therapy Daily Note ---
PT Daily Note-Current Subjective Pt. states he is glad this WIND OPERATIONS SUPERVISOR notices his progress because he really cant see it. Agreeable to Rx. Pain Numeric Pain Scale: 0-No Pain Mental Status Patient Orientation: Person, Place, Time, Situation Transfers Functional [place] Measure 0=Not Assessed/NA 4=Minimal Assistance 1=Total Assistance 5=Supervision or Setup 2=Maximal Assistance 6=Modified [place] 3=Moderate Assistance 7=Complete IndependenceIRFPAI Quality Coding Scale 6 Independent with activity with or without an assistive device 5 Patient requires set up or clean up by helper. Patient completes activity by themselves 4 Supervision or touching assist (CGA). [place] provide cues , steadying assist 3 The helper provides less than half the effort to complete the activity 2 The helper provides more than half the effort to complete the activity 1 Dependent. The helper does all the effort to complete an activity 7 Patient refused to complete or attempt activity 9 The patient did not perform the activity before the current illness or injury 88 Not attempted due to Medical conditions or safety concerns Transfers (B, C, W/C) (FIM): 6 Scootin Rollin Supine to/from Sit: 6 Sit to/from Stand: 6 Bed to/from Chair: 6 Car Transfer (QC): 6 Weight Bearing Right Lower Extremity: Right Weight Bearing/Tolerated Left Lower Extremity: Left Full Weight Bearing Gait Training Does the Patient Walk?: Yes Gait (FIM): 5 Distance (FIM): 3=150 ft (200x2) Gait Level of Assist: 5 Gait Persons Needed: 1 Gait Assistive Device: FWW near up ad kati status Stair Training Stair Training: Handrails/: 2 handrails Stairs (FIM): 2 #of Steps: 4 Stairs: Pattern: Step to Level of Assist: 4 pt. continues nervous about stairs and needs some encouragement and cues for sequence each time . Exercises Standing: Hip Abduction, Hamstring curls, Heel/toe raises, Marching, Mini squats, Sit to Stand Standing Reps: 15 NuStep Minutes: 12 NuStep Workload: 5 Assessment Current Status: Good Progress PT Short Term Goals Short Term Goals Time Frame: Jul 18, 2017 Transfers (B,C,W/C) (FIM): 4 Gait (FIM): 4 Distance (FIM): 3=150 ft Gait Assistive Device: FWW Wheelchair (FIM): 6 Wheelchair distance (FIM): 3=150 ft Wheelchair Distance: 150 feet x2 PT Cashier Payments Received Goals Cashier Payments Received Goals PT Cashier Payments Received Goals Time Frame: Aug 01, 2017 Transfers (B,C,W/C) (FIM): 6 Sit to Lying (QC): 6 Lying-Sitting on Side/Bed(QC): 6 Sit to Stand (QC): 6 Rollin Roll Left to Right (QC): 6 Chair/Pka-co-Pnpve Xfer(QC): 6 Car Transfer (QC): 6 Does the Patient Walk: Yes Gait (FIM): 6 Gait distance (FIM): 3=150 ft Walk 10 feet (QC): 6 Walk 10ft-Uneven Surface(QC): 6 Walk 50ft with 2 Turns (QC): 6 Walk 150 ft (QC): 6 Gait Level of Assist: 6 Gait Assistive Device: FWW Does the Pt use WC or Scooter?: No Stairs (FIM): 6 # of Steps: 12 1 Step (curb) (QC): 6 4 Steps (QC): 6 12 Steps (QC): 6 Picking up an Object (QC): 6 PT Plan Treatment/Plan Treatment Plan: Continue Plan of Care Treatment Plan: Bed Mobility, Education, Functional Activity Roney, Functional Strength, Group Therapy, Gait, Safety, Therapeutic Exercise, Transfers Treatment Duration: Aug 01, 2017 Frequency: At least 5 of 7 days/Wk (IRF) Estimated Hrs Per Day: 1.5 hours per day Patient and/or Family Agrees t: Yes Safety Risks/Education Patient Education: Gait Training, Transfer Techniques, Steps, Correct Positioning, Safety Issues Teaching Recipient: Patient Teaching Methods: Demonstration, Discussion Response to Teaching: Verbalize Understanding, Return Demonstration, Reinforcement Needed Time/GCodes Time In: 900 Time Out: 1000 Total Billed Treatment Time: 60 Total Billed Treatment 1,GT15m,EX25m,FA20m G Codes Necessary: ROSY Luu WIND OPERATIONS SUPERVISOR Jul 14, 2017 10:04
--- NOTE | 2017-07-14 10:51 | PM & R (SOAP) Progress Note ---
Subjective Time Seen by Provider: 08:05 Subjective/Events-last exam Patient was seen in his rrom this AM Discussed case with RN She will f/u with ortho re staple removal.Accuchecks noted Objective Exam Last Set of Vital Signs Vital Signs Date Time Temp Pulse Resp B/P (MAP) Pulse Ox O2 Delivery O2 Flow Rate FiO2 07/14/17 05:46 98.4 70 18 117/67 (84) 96 Room Air Capillary Refill : Less Than 3 Seconds I&O Intake and Output 07/14/17 00:00 Intake Total 1240 ml Output Total 1660 ml Balance -420 ml Intake Oral 1240 ml Output Urine Total 1660 ml # Bowel Movements 1 General: Alert, Oriented X3, Cooperative, No Acute Distress HEENT: Atraumatic, PERRLA, EOMI, Mucous Memb Moist/[place], Other (defect left parietal skull) Neck: Supple, No JVD Lungs: Clear to Auscultation Heart: Regular Rate Abdomen: Normal Bowel Sounds, Soft, No Tenderness Extremities: No Edema Skin: Other (incision rt hip healing well) Neuro: Other (Strength funtional BUES and 4+/5 LLE RT HIP flex 2/5 Quads 3/5 Dorsiflexion 4/5 ) Results Lab Laboratory Tests 07/12/17 06:00: Glucometer 159H 07/13/17 05:43: Glucometer 123H 07/14/17 05:14: Glucometer 152H Assessment/Plan Assessment Rt proximal Femur frx s/p IM nailing OSH [place] DM controlled with meds ETOH abuse Tobaccoism curreently abstaining HTN controlled 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
--- NOTE | 2017-07-14 12:59 | Occupational Ther Daily Note ---
OT Current Status-Daily Note Subjective Pt alert, sitting in recliner. Pt stated that he had taken his shower at 0600 after set up by nurse tech. No c/o pain only stiffness. Agreed to therapy. Mental Status/Objective Patient Orientation: Person, Place, Time, Situation Functional [place] Measure 0=Not Assessed/NA 4=Minimal Assistance 1=Total Assistance 5=Supervision or Setup 2=Maximal Assistance 6=Modified [place] 3=Moderate Assistance 7=Complete [place] ADL-Treatment Functional [place] Measure 0=Not Assessed/NA 4=Minimal Assistance 1=Total Assistance 5=Supervision or Setup 2=Maximal Assistance 6=Modified [place] 3=Moderate Assistance 7=Complete IndependenceIRFPAI Quality Coding Scale 6 Independent with activity with or without an assistive device 5 Patient requires set up or clean up by helper. Patient completes activity by themselves 4 Supervision or touching assist (CGA). [place] provide cues , steadying assist 3 The helper provides less than half the effort to complete the activity 2 The helper provides more than half the effort to complete the activity 1 Dependent. The helper does all the effort to complete an activity 7 Patient refused to complete or attempt activity 9 The patient did not perform the activity before the current illness or injury 88 Not attempted due to Medical conditions or safety concerns Other Treatment Pt ambulated to bathroom with supervision and completed toileting with supervision. Pt then ambulated to sink to wash hands using FWW. Pt then place dirty clothing onto FWW and ambulated to laundry room to complete washing clothing with supervision. Then ambulated to therapy gym to complete UE exercises to increase strength for daily functional tasks. Arm bike completed for 12 min at 40 ball resistance without recovery breaks. Then completed UE dowel zohreh exercises with 4# wts attached to increase AROM and strengthening. Pt then ambulated to laundry room to take clothing out of washer and place in dryer with supervision. After therapy, pt sitting in recliner with call light/ phone in reach. All needs met in room. OT Short Term Goals Short Term Goals Time Frame: Jul 11, 2017 Eating(FIM): 5 Grooming(FIM): 5 Bathing(FIM): 4 Upper Body Dressing(FIM): 5 Lower Body Dressing(FIM): 4 Toileting(FIM): 4 Transfers (B,C,W/C) (FIM): 4 Toilet/Commode Transfer(FIM): 4 Shower Transfer(FIM): 4 Additional Short Term Goals: 1-Demonstrate ADL Tasks, 2-Verbalize Understanding , 3-ImproveStrength/Roney 1=Demonstrate adherence to instructed precautions during ADL tasks. 2=Patient will verbalize/demonstrate understanding of assistive devices/ modifications for ADL. 3=Patient will improve strength/tolerance for activity to enable patient to perform ADL's. OT Bone Glue Maker Goals Bone Glue Maker Goals Time Frame: Jul 25, 2017 Eating (FIM): 6 Eating (QC): 6 Groomin Oral Hygiene (QC): 5 Bathing(FIM): 5 Shower/Bathe Self (QC): 5 Upper Body Dressing(FIM): 5 Upper Body Dressing (QC): 5 Lower Body Dressing(FIM): 5 Lower Body Dressing (QC): 5 On/Off Footwear (QC): 5 Toileting(FIM): 6 Toileting Hygiene (QC): 6 Transfers (B,C,W/C) (FIM): 5 Toilet/Commode Transfer(FIM): 6 Toilet/Commode Transfer (QC): 6 Shower Transfer(FIM): 5 Additional Goals: 1-Demonstrate ADL Tasks, 2-Verbalize Understanding, 3- ImproveStrength/Roney 1=Demonstrate adherence to instructed precautions during ADL tasks. 2=Patient will verbalize/demonstrate understanding of assistive devices/ modifications for ADL. 3=Patient will improve strength/tolerance for activity to enable patient to perform ADL's. OT Education/Plan Discharge Recommendations Plan/Recommendations: Continue POC Treatment Plan/Plan of Care Patient would benefit from OT for education, treatment and training to promote independence in ADL's, mobility, safety and/or upper extremity function for ADL' s. Plan of Care: ADL Retraining, Caregiver Training, Functional Mobility, Group Exercise/Act as Ind, UE Funct Exercise/Act Treatment Duration: Jul 25, 2017 Frequency: At least 5 of 7 days/Wk (IRF) Estimated Hrs Per Day: 1.5 hours per day Agreement: Yes Rehab Potential: Good Time/GCodes Start Time: 07:30 Stop Time: 08:30 Total Time Billed (hr/min): 60 Billed Treatment Time 1 visit-FA 2 (25 min) EX 2 (35 min) MG ZARATE Jul 14, 2017 12:59
--- NOTE | 2017-07-14 14:05 | Physical Therapy Daily Note ---
PT Daily Note-Current Subjective Pt. agrees to rx. States he is making improvement but its hard to see sometimes. Pain Numeric Pain Scale: 2 Location: Right Location Body Site: Hip Pain Description: Ache Mental Status Patient Orientation: Person, Place, Time, Situation Transfers Functional [place] Measure 0=Not Assessed/NA 4=Minimal Assistance 1=Total Assistance 5=Supervision or Setup 2=Maximal Assistance 6=Modified [place] 3=Moderate Assistance 7=Complete IndependenceIRFPAI Quality Coding Scale 6 Independent with activity with or without an assistive device 5 Patient requires set up or clean up by helper. Patient completes activity by themselves 4 Supervision or touching assist (CGA). [place] provide cues , steadying assist 3 The helper provides less than half the effort to complete the activity 2 The helper provides more than half the effort to complete the activity 1 Dependent. The helper does all the effort to complete an activity 7 Patient refused to complete or attempt activity 9 The patient did not perform the activity before the current illness or injury 88 Not attempted due to Medical conditions or safety concerns all TRFs SBA , with some effort for pt. Weight Bearing Right Lower Extremity: Right Weight Bearing/Tolerated Left Lower Extremity: Left Full Weight Bearing Gait Training Gait Assistive Device: FWW 175, FWW SBA, work on better foot placement and toe off with cues Exercises Supine Ex: Ankle pumps, Quad Set, Rolling, Glut sets, Heel Slides, Short Arc Quads, Scooting, Straight leg raise (assist), Hip abd/add Supine Reps: 15 Assessment Current Status: Good Progress less c/o pain , better function PT Short Term Goals Short Term Goals Time Frame: Jul 18, 2017 Transfers (B,C,W/C) (FIM): 4 Gait (FIM): 4 Distance (FIM): 3=150 ft Gait Assistive Device: FWW Wheelchair (FIM): 6 Wheelchair distance (FIM): 3=150 ft Wheelchair Distance: 150 feet x2 PT Gas Meter Reader Goals Fdc Goals PT Gas Meter Reader Goals Time Frame: Aug 01, 2017 Transfers (B,C,W/C) (FIM): 6 Sit to Lying (QC): 6 Lying-Sitting on Side/Bed(QC): 6 Sit to Stand (QC): 6 Rollin Roll Left to Right (QC): 6 Chair/Jze-gc-Nflpp Xfer(QC): 6 Car Transfer (QC): 6 Does the Patient Walk: Yes Gait (FIM): 6 Gait distance (FIM): 3=150 ft Walk 10 feet (QC): 6 Walk 10ft-Uneven Surface(QC): 6 Walk 50ft with 2 Turns (QC): 6 Walk 150 ft (QC): 6 Gait Level of Assist: 6 Gait Assistive Device: FWW Does the Pt use WC or Scooter?: No Stairs (FIM): 6 # of Steps: 12 1 Step (curb) (QC): 6 4 Steps (QC): 6 12 Steps (QC): 6 Picking up an Object (QC): 6 PT Plan Treatment/Plan Treatment Plan: Continue Plan of Care Treatment Plan: Bed Mobility, Education, Functional Activity Roney, Functional Strength, Group Therapy, Gait, Safety, Therapeutic Exercise, Transfers Treatment Duration: Aug 01, 2017 Frequency: At least 5 of 7 days/Wk (IRF) Estimated Hrs Per Day: 1.5 hours per day Patient and/or Family Agrees t: Yes Safety Risks/Education Patient Education: Gait Training, Transfer Techniques, Correct Positioning, Safety Issues Teaching Recipient: Patient Teaching Methods: Demonstration, Discussion Response to Teaching: Verbalize Understanding, Return Demonstration, Reinforcement Needed Time/GCodes Time In: 1330 Time Out: 1400 Total Billed Treatment Time: 30 Total Billed Treatment 1,GT10,EX20 ROSY CHIANG HOG CUTTER Jul 14, 2017 14:05
--- NOTE | 2017-07-14 15:00 | Occupational Ther Daily Note ---
OT Current Status-Daily Note Subjective Pt alert, starting to get up on own to go to bathroom. Pt agreed to therapy. No c/o pain. Mental Status/Objective Patient Orientation: Person, Place, Time, Situation Functional [place] Measure 0=Not Assessed/NA 4=Minimal Assistance 1=Total Assistance 5=Supervision or Setup 2=Maximal Assistance 6=Modified [place] 3=Moderate Assistance 7=Complete [place] ADL-Treatment Functional [place] Measure 0=Not Assessed/NA 4=Minimal Assistance 1=Total Assistance 5=Supervision or Setup 2=Maximal Assistance 6=Modified [place] 3=Moderate Assistance 7=Complete IndependenceIRFPAI Quality Coding Scale 6 Independent with activity with or without an assistive device 5 Patient requires set up or clean up by helper. Patient completes activity by themselves 4 Supervision or touching assist (CGA). [place] provide cues , steadying assist 3 The helper provides less than half the effort to complete the activity 2 The helper provides more than half the effort to complete the activity 1 Dependent. The helper does all the effort to complete an activity 7 Patient refused to complete or attempt activity 9 The patient did not perform the activity before the current illness or injury 88 Not attempted due to Medical conditions or safety concerns Other Treatment Pt completed toileting and toilet transfer with supervision using FWW. Pt then was reminded to check on laundry, pt had forgotten doing laundry in am. Pt ambulated to laundry and retrieved clothing with FWW. Cues for safe transport needed for clothing using FWW. Pt able to transport clothing draped over FWW and place in closet with supervision. Pt then ambulated to therapy gym with FWW. Pt complete medium resistance theraband exercises, 3 sets 10 reps each to increase strength for daily activities. [employer] Consultant strengthening task completed 3 sets 10 reps each hand. PT took over care of pt in therapy gym. All needs met. OT Short Term Goals Short Term Goals Time Frame: Jul 11, 2017 Eating(FIM): 5 Grooming(FIM): 5 Bathing(FIM): 4 Upper Body Dressing(FIM): 5 Lower Body Dressing(FIM): 4 Toileting(FIM): 4 Transfers (B,C,W/C) (FIM): 4 Toilet/Commode Transfer(FIM): 4 Shower Transfer(FIM): 4 Additional Short Term Goals: 1-Demonstrate ADL Tasks, 2-Verbalize Understanding , 3-ImproveStrength/[place] 1=Demonstrate adherence to instructed precautions during ADL tasks. 2=Patient will verbalize/demonstrate understanding of assistive devices/ modifications for ADL. 3=Patient will improve strength/tolerance for activity to enable patient to perform ADL's. OT Language Therapist Goals Language Therapist Goals Time Frame: Jul 25, 2017 Eating (FIM): 6 Eating (QC): 6 Groomin Oral Hygiene (QC): 5 Bathing(FIM): 5 Shower/Bathe Self (QC): 5 Upper Body Dressing(FIM): 5 Upper Body Dressing (QC): 5 Lower Body Dressing(FIM): 5 Lower Body Dressing (QC): 5 On/Off Footwear (QC): 5 Toileting(FIM): 6 Toileting Hygiene (QC): 6 Transfers (B,C,W/C) (FIM): 5 Toilet/Commode Transfer(FIM): 6 Toilet/Commode Transfer (QC): 6 Shower Transfer(FIM): 5 Additional Goals: 1-Demonstrate ADL Tasks, 2-Verbalize Understanding, 3- ImproveStrength/[place] 1=Demonstrate adherence to instructed precautions during ADL tasks. 2=Patient will verbalize/demonstrate understanding of assistive devices/ modifications for ADL. 3=Patient will improve strength/tolerance for activity to enable patient to perform ADL's. OT Education/Plan Discharge Recommendations Plan/Recommendations: Continue POC Treatment Plan/Plan of Care Patient would benefit from OT for education, treatment and training to promote independence in ADL's, mobility, safety and/or upper extremity function for ADL' s. Plan of Care: ADL Retraining, Caregiver Training, Functional Mobility, Group Exercise/Act as Ind, UE Funct Exercise/Act Treatment Duration: Jul 25, 2017 Frequency: At least 5 of 7 days/Wk (IRF) Estimated Hrs Per Day: 1.5 hours per day Agreement: Yes Rehab Potential: Good Time/GCodes Start Time: 13:00 Stop Time: 13:30 Total Time Billed (hr/min): 30 Billed Treatment Time 1 visit-FA 1 (10 min) EX 1 (20 min) MG ZARATE Jul 14, 2017 15:00
[2017-07-14] MEDS: ALFUZOSIN HCL 10 MG TAB (UROXATRAL) PO SCH (17:16)
[2017-07-14 18:15] VITALS: BP 106/63
[2017-07-14] MEDS: SIMvastatin 10 MG (ZOCOR) TAB PO SCH (20:58)
[2017-07-15 04:50] VITALS: BP 107/64
[2017-07-15] MEDS: SITAGLIPTIN PO SCH ×2 (06:16→17:37)
[2017-07-15] MEDS: MULTIVIT W/MINERALS TAB (THERAGRAN M) PO SCH (06:16)
[2017-07-15] MEDS: PIOGLITAZONE 30MG (ACTOS) TAB PO SCH (06:16)
[2017-07-15] MEDS: METFORMIN PO SCH ×2 (06:16→17:37)
--- NOTE | 2017-07-15 08:08 | Progress Note (SOAP) ---
Subjective Time Seen by Provider: 08:05 Subjective/Events-last exam patient improving each day. Patient put his pants on mouth with difficulty. right hip fracture Objective Exam Vital Signs Date Time Temp Pulse Resp B/P (MAP) Pulse Ox O2 Delivery O2 Flow Rate FiO2 07/15/17 04:50 97.0 66 20 107/64 (78) 95 Room Air 07/14/17 18:15 97.6 73 16 106/63 (77) 97 Room Air 07/14/17 09:00 Room Air I & O 07/15/17 07:00 Intake Total 1400 ml Output Total 1175 ml Balance 225 ml Capillary Refill : Less Than 3 Seconds General Appearance: No Apparent Distress, WD/WN HEENT: Normal ENT Inspection Neck: Full Range of Motion, Normal Inspection Respiratory: Chest Non Tender, Lungs Clear, Normal Breath Sounds, No Accessory Muscle Use, No Respiratory Distress Cardiovascular: Regular Rate, Rhythm, No Murmur Results Lab Laboratory Tests 07/15/17 04:55: Glucometer 164H Assessment/Plan Assessment/Plan Assess & Plan/Chief Complaint right hip fracture. Posttraumatic seizure disorder. Ethanol abuse. Tobacco usage. . . Right hip fracture. Posttraumatic seizure disorder. Ethanol abuse. Tobacco usage. Patient weak and needs PT and OT. . 07/08/17 area Right hip fracture. Ethanol abuse. Tobacco usage. patient working hard. Patient states she is improving each day. Patient has not put on his pants yet by himself. . 07/09/17. Right hip fracture. Ethanol abuse. Tobacco usage. Patient ready to work today. sugars under good control. . 07/10/17 Right hip fracture. Ethanol abuse. Tobacco usage. patient improving each day. . 07/13/17. Right hip fracture. Ethanol abuse. Tobacco usage. Patient still not able to put on his pants. . 07/14/17 Right hip fracture. ethanol abuse. Tobacco usage. Diabetes under control posttraumatic seizure disorder. . 07/15/17. Right hip fracture. Ethanol abuse. Tobacco usage. Patient has no complaints. Difficulty in putting his pants on Clinical Quality Measures DVT/VTE Risk/Contraindication: Risk Factor Score Per Nursin RFS Level Per Nursing on Admit: 4+=Very High SHASHANK JACOB DO Jul 15, 2017 08:08
--- NOTE | 2017-07-15 08:29 | PM & R (SOAP) Progress Note ---
Subjective Time Seen by Provider: 08:30 Subjective/Events-last exam Patient was seen in common area this AM Patient SBA for transfers Discussed with RN Ame barton and RN reports incision has healed well 2 weeks postop - will d/c myra see orders Objective Exam Last Set of Vital Signs Vital Signs Date Time Temp Pulse Resp B/P (MAP) Pulse Ox O2 Delivery O2 Flow Rate FiO2 07/15/17 04:50 97.0 66 20 107/64 (78) 95 Room Air Capillary Refill : Less Than 3 Seconds I&O Intake and Output 07/15/17 00:00 Intake Total 1300 ml Output Total 980 ml Balance 320 ml Intake Oral 1300 ml Output Urine Total 980 ml # Voids 4 General: Alert, Oriented X3, Cooperative, No Acute Distress HEENT: Atraumatic, PERRLA, EOMI, Mucous Memb Moist/[place], Other (defect left parietal skull) Neck: Supple, No JVD Lungs: Clear to Auscultation Heart: Regular Rate Abdomen: Normal Bowel Sounds, Soft, No Tenderness Extremities: No Edema Skin: Other (incision rt hip healing well) Neuro: Other (Strength funtional BUES and 4+/5 LLE RT HIP flex 2/5 Quads 3/5 Dorsiflexion 4/5 ) Results Lab Laboratory Tests 07/13/17 05:43: Glucometer 123H 07/14/17 05:14: Glucometer 152H 07/15/17 04:55: Glucometer 164H Assessment/Plan Assessment Rt proximal Femur frx s/p IM nailing OSH [place] DM controlled with meds ETOH abuse Tobaccoism curreently abstaining HTN controlled 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
[2017-07-15] MEDS: lisINopril 20 MG (ZESTRIL) TAB PO SCH (09:44)
[2017-07-15] MEDS: carBAMazepine 100 MG (TEGretol) CHEW PO SCH (09:44)
[2017-07-15] MEDS: ASPIRIN E.C. 81 MG (ECOTRIN) TAB PO SCH (09:45)
[2017-07-15] MEDS: SENNA W/DOCUSATE (SENOKOT S) TABLET PO SCH ×2 (09:45→20:24)
--- NOTE | 2017-07-15 11:35 | Occupational Ther Daily Note ---
OT Current Status-Daily Note Subjective Pt alert, sitting in recliner. Pt agreed to therapy. No c/o pain at this time. Pt very talkative today and describing about his dental/dentist issues and that he needs to find a new one when he is discharged. Pt also commented on that he needs to cotton picker his social security check to pay for rent. Mental Status/Objective Patient Orientation: Person, Place, Time, Situation Functional [place] Measure 0=Not Assessed/NA 4=Minimal Assistance 1=Total Assistance 5=Supervision or Setup 2=Maximal Assistance 6=Modified [place] 3=Moderate Assistance 7=Complete [place] ADL-Treatment Pt declined shower and changing clothing due to getting myra out today and would prefer to do all of the ADLs after. Pt then discussed ways of making bed , GALVIN suggested ways of being safe and economically efficient. Pt then was discussing about how it is hard to carry thing with FWW. GALVIN educated pt on different devices that may be used for this. Pt stated he already had an idea of using his backpack to he doesn't have to buy anything new. Pt then ambulated to therapy gym to complete arm bike 15 min at 40 ball resistance to increase strength and activity tolerance for daily functional tasks. During activity discussion about what type of bathroom tub or shower he had. Pt stated that he had a tub shower and he had contemplated sitting on tub ledge then lifting legs in to get into tub. GALVIN educated pt on different strategies to use and pt stated that he already had a plan. GALVIN stated that he would work on it during therapy to become safe and efficient with transfer prior to leaving. Pt continued just to restate that he had a plan already. GALVIN attempted to give pt magazine with AE ideas for reference pt declined. Pt then ambulated back to room. After therapy, pt sitting in recliner with call light/ phone in reach. All needs met in room. Functional [place] Measure 0=Not Assessed/NA 4=Minimal Assistance 1=Total Assistance 5=Supervision or Setup 2=Maximal Assistance 6=Modified [place] 3=Moderate Assistance 7=Complete IndependenceIRFPAI Quality Coding Scale 6 Independent with activity with or without an assistive device 5 Patient requires set up or clean up by helper. Patient completes activity by themselves 4 Supervision or touching assist (CGA). [place] provide cues , steadying assist 3 The helper provides less than half the effort to complete the activity 2 The helper provides more than half the effort to complete the activity 1 Dependent. The helper does all the effort to complete an activity 7 Patient refused to complete or attempt activity 9 The patient did not perform the activity before the current illness or injury 88 Not attempted due to Medical conditions or safety concerns Education OT Patient Education: Transfer techniques, Use of adapted equipment Teaching Recipient: Patient Teaching Methods: Handout, Discussion Response to Teaching: Reinforcement Needed OT Short Term Goals Short Term Goals Time Frame: Jul 11, 2017 Eating(FIM): 5 Grooming(FIM): 5 Bathing(FIM): 4 Upper Body Dressing(FIM): 5 Lower Body Dressing(FIM): 4 Toileting(FIM): 4 Transfers (B,C,W/C) (FIM): 4 Toilet/Commode Transfer(FIM): 4 Shower Transfer(FIM): 4 Additional Short Term Goals: 1-Demonstrate ADL Tasks, 2-Verbalize Understanding , 3-ImproveStrength/Roney 1=Demonstrate adherence to instructed precautions during ADL tasks. 2=Patient will verbalize/demonstrate understanding of assistive devices/ modifications for ADL. 3=Patient will improve strength/tolerance for activity to enable patient to perform ADL's. OT Music Education Adjunct Professor Goals Residential Goals Time Frame: Jul 25, 2017 Eating (FIM): 6 Eating (QC): 6 Groomin Oral Hygiene (QC): 5 Bathing(FIM): 5 Shower/Bathe Self (QC): 5 Upper Body Dressing(FIM): 5 Upper Body Dressing (QC): 5 Lower Body Dressing(FIM): 5 Lower Body Dressing (QC): 5 On/Off Footwear (QC): 5 Toileting(FIM): 6 Toileting Hygiene (QC): 6 Transfers (B,C,W/C) (FIM): 5 Toilet/Commode Transfer(FIM): 6 Toilet/Commode Transfer (QC): 6 Shower Transfer(FIM): 5 Additional Goals: 1-Demonstrate ADL Tasks, 2-Verbalize Understanding, 3- ImproveStrength/Roney 1=Demonstrate adherence to instructed precautions during ADL tasks. 2=Patient will verbalize/demonstrate understanding of assistive devices/ modifications for ADL. 3=Patient will improve strength/tolerance for activity to enable patient to perform ADL's. OT Education/Plan Discharge Recommendations Plan/Recommendations: Continue POC Treatment Plan/Plan of Care Patient would benefit from OT for education, treatment and training to promote independence in ADL's, mobility, safety and/or upper extremity function for ADL' s. Plan of Care: ADL Retraining, Caregiver Training, Functional Mobility, Group Exercise/Act as Ind, UE Funct Exercise/Act Treatment Duration: Jul 25, 2017 Frequency: At least 5 of 7 days/Wk (IRF) Estimated Hrs Per Day: 1.5 hours per day Agreement: Yes Rehab Potential: Good Time/GCodes Start Time: 07:15 Stop Time: 08:15 Total Time Billed (hr/min): 60 Billed Treatment Time 1 visit-FA 3 (40 min) EX 1 (20 min) MG ZARATE Jul 15, 2017 11:35
--- NOTE | 2017-07-15 13:00 | Physical Therapy Daily Note ---
PT Daily Note-Current Subjective Pt. agrees to Rx. Pain Numeric Pain Scale: 3 Location: Right Location Body Site: Hip Pain Description: Ache Mental Status Patient Orientation: Person, Place, Time, Situation Transfers Functional [place] Measure 0=Not Assessed/NA 4=Minimal Assistance 1=Total Assistance 5=Supervision or Setup 2=Maximal Assistance 6=Modified [place] 3=Moderate Assistance 7=Complete IndependenceIRFPAI Quality Coding Scale 6 Independent with activity with or without an assistive device 5 Patient requires set up or clean up by helper. Patient completes activity by themselves 4 Supervision or touching assist (CGA). [place] provide cues , steadying assist 3 The helper provides less than half the effort to complete the activity 2 The helper provides more than half the effort to complete the activity 1 Dependent. The helper does all the effort to complete an activity 7 Patient refused to complete or attempt activity 9 The patient did not perform the activity before the current illness or injury 88 Not attempted due to Medical conditions or safety concerns Transfers (B, C, W/C) (FIM): 5 Scootin Rollin Supine to/from Sit: 6 Sit to/from Stand: 6 Bed to/from Chair: 5 Weight Bearing Right Lower Extremity: Right Weight Bearing/Tolerated Left Lower Extremity: Left Full Weight Bearing Gait Training Does the Patient Walk?: Yes Gait (FIM): 5 Distance (FIM): 3=150 ft (200x2) Gait Level of Assist: 5 Gait Persons Needed: 1 Gait Assistive Device: FWW Pt. still resists wt bearing RLE and walks at times with much antalgia and c/o pain. After discussion pt. agrees this may be fear and apprehension on his part. Much emphasis on gait pattern and flow Stair Training Stair Training: Handrails/: 2 handrails Stairs (FIM): 2 #of Steps: 4 Stairs: Pattern: Step to Level of Assist: 4 Exercises Supine Ex: Ankle pumps, Quad Set, Rolling, Heel Slides, Short Arc Quads, Scooting, Hip abd/add Supine Reps: 15 NuStep Minutes: 10 NuStep Workload: 2 Assessment Current Status: Good Progress near up ad kati status. Pt. wants this status. education discussion was had this date to approach this status PT Short Term Goals Short Term Goals Time Frame: Jul 18, 2017 Transfers (B,C,W/C) (FIM): 4 Gait (FIM): 4 Distance (FIM): 3=150 ft Gait Assistive Device: FWW Wheelchair (FIM): 6 Wheelchair distance (FIM): 3=150 ft Wheelchair Distance: 150 feet x2 PT Clinical Rn Manager Goals Skilled Nursing Goals PT Clinical Rn Manager Goals Time Frame: Aug 01, 2017 Transfers (B,C,W/C) (FIM): 6 Sit to Lying (QC): 6 Lying-Sitting on Side/Bed(QC): 6 Sit to Stand (QC): 6 Rollin Roll Left to Right (QC): 6 Chair/Dgl-vo-Zctmj Xfer(QC): 6 Car Transfer (QC): 6 Does the Patient Walk: Yes Gait (FIM): 6 Gait distance (FIM): 3=150 ft Walk 10 feet (QC): 6 Walk 10ft-Uneven Surface(QC): 6 Walk 50ft with 2 Turns (QC): 6 Walk 150 ft (QC): 6 Gait Level of Assist: 6 Gait Assistive Device: FWW Does the Pt use WC or Scooter?: No Stairs (FIM): 6 # of Steps: 12 1 Step (curb) (QC): 6 4 Steps (QC): 6 12 Steps (QC): 6 Picking up an Object (QC): 6 PT Plan Treatment/Plan Treatment Plan: Continue Plan of Care Treatment Plan: Bed Mobility, Education, Functional Activity Roney, Functional Strength, Group Therapy, Gait, Safety, Therapeutic Exercise, Transfers Treatment Duration: Aug 01, 2017 Frequency: At least 5 of 7 days/Wk (IRF) Estimated Hrs Per Day: 1.5 hours per day Patient and/or Family Agrees t: Yes Safety Risks/Education Patient Education: Gait Training, Transfer Techniques, Steps, Correct Positioning, Safety Issues Teaching Recipient: Patient Teaching Methods: Demonstration, Discussion Response to Teaching: Verbalize Understanding, Return Demonstration, Reinforcement Needed Time/GCodes Time In: 900 Time Out: 1000 Total Billed Treatment Time: 60 Total Billed Treatment 1,EX25m,GT15m,FA20m G Codes Necessary: ROSY Luu SPEED BELT SANDER TENDER Jul 15, 2017 13:00
--- NOTE | 2017-07-15 15:29 | Therapy Group Daily Note ---
Therapy Daily Group Note Patient Education Topic Home Safety Exercises UE Exercise Other/Notes Pt ambulated to/from OT/PT group in ARU [facility] area. Group consisted of introductions (name, place, dislike of one uncommon item), socialization, seated UE exercises, ARU expectations, safety sign bingo with education and safe vs. unsafe education. Pt was able to appropriately introduce self to peers. Pt contributed to discussions throughout group that was relevant to topics discussed. Pt completed UE exercises though required to use self ROM technique for L UE. Education of ARU expectations and pt able to give one example of ARU routine. Pt able to complete matching, manipulating token during safety bingo activity. Education for safety throughout group then pt was asked to give examples of what unsafe situations are and what to do to make them safe. After therapy, maneuvered w/c back to room. All needs met in room. Start Time: 13:00 Stop Time: 14:15 Total Billed Treatment Time: 75 Total Billed Treatment 1,GRP ROSY CHIANG SPORTS PHYSICIAN Jul 15, 2017 15:29
[2017-07-15] MEDS: ALFUZOSIN HCL 10 MG TAB (UROXATRAL) PO SCH (17:36)
[2017-07-15 18:45] VITALS: BP 111/69
[2017-07-15] MEDS: SIMvastatin 10 MG (ZOCOR) TAB PO SCH (20:18)
[2017-07-16 04:55] VITALS: BP 107/66
[2017-07-16] MEDS: SENNA W/DOCUSATE (SENOKOT S) TABLET PO SCH ×2 (06:04→20:21)
[2017-07-16] MEDS: SITAGLIPTIN PO SCH ×2 (06:04→18:13)
[2017-07-16] MEDS: METFORMIN PO SCH ×2 (06:04→18:13)
[2017-07-16] MEDS: PIOGLITAZONE 30MG (ACTOS) TAB PO SCH (06:04)
[2017-07-16] MEDS: MULTIVIT W/MINERALS TAB (THERAGRAN M) PO SCH (06:04)
--- NOTE | 2017-07-16 08:13 | Progress Note (SOAP) ---
Subjective Time Seen by Provider: 08:10 Subjective/Events-last exam right hip fracture. Patient took shallow this morning. Patient's myra removed yesterday each day patient feels he is getting more and more better Objective Exam Vital Signs Date Time Temp Pulse Resp B/P (MAP) Pulse Ox O2 Delivery O2 Flow Rate FiO2 07/16/17 04:55 98.1 64 18 107/66 (80) 93 Room Air 07/15/17 18:45 96.8 61 14 111/69 (83) 95 Room Air 07/15/17 09:00 Room Air I & O 07/16/17 07:00 Intake Total 1840 ml Output Total 1375 ml Balance 465 ml Capillary Refill : Less Than 3 Seconds General Appearance: No Apparent Distress HEENT: Normal ENT Inspection Neck: Full Range of Motion Results Lab Laboratory Tests 07/16/17 06:06: Glucometer 150H Assessment/Plan Assessment/Plan Assess & Plan/Chief Complaint right hip fracture. Posttraumatic seizure disorder. Ethanol abuse. Tobacco usage. . . Right hip fracture. Posttraumatic seizure disorder. Ethanol abuse. Tobacco usage. Patient weak and needs PT and OT. . 07/08/17 area Right hip fracture. Ethanol abuse. Tobacco usage. patient working hard. Patient states she is improving each day. Patient has not put on his pants yet by himself. . 07/09/17. Right hip fracture. Ethanol abuse. Tobacco usage. Patient ready to work today. sugars under good control. . 07/10/17 Right hip fracture. Ethanol abuse. Tobacco usage. patient improving each day. . 07/13/17. Right hip fracture. Ethanol abuse. Tobacco usage. Patient still not able to put on his pants. . 07/14/17 Right hip fracture. ethanol abuse. Tobacco usage. Diabetes under control posttraumatic seizure disorder. . 07/15/17. Right hip fracture. Ethanol abuse. Tobacco usage. Patient has no complaints. Difficulty in putting his pants on. . 07/16/17. Right hip fracture. Posttraumatic seizure disorder. Ethanol abuse. Tobacco usage. patient took a shower this morning. Patient had myra removed yesterday. Patient doing better daily Clinical Quality Measures DVT/VTE Risk/Contraindication: Risk Factor Score Per Nursin RFS Level Per Nursing on Admit: 4+=Very High SHASHANK JACOB DO Jul 16, 2017 08:13
[2017-07-16] MEDS: carBAMazepine 100 MG (TEGretol) CHEW PO SCH (08:49)
[2017-07-16] MEDS: ASPIRIN E.C. 81 MG (ECOTRIN) TAB PO SCH (08:49)
[2017-07-16 08:50] VITALS: BP 113/68
[2017-07-16] MEDS: lisINopril 20 MG (ZESTRIL) TAB PO SCH (08:50)
--- NOTE | 2017-07-16 10:00 | Physical Therapy Daily Note ---
PT Daily Note-Current Subjective Pt. agrees to Rx. State he has shoes that would fit him properly but he cant get them here. States he has broken relationships with all his family and it was all he could do to get his brother to bring his wallet etc. Pain Numeric Pain Scale: 7 Location: Right Location Body Site: Hip Pain Description: Ache Mental Status Patient Orientation: Person, Place, Time, Situation Transfers Functional [place] Measure 0=Not Assessed/NA 4=Minimal Assistance 1=Total Assistance 5=Supervision or Setup 2=Maximal Assistance 6=Modified [place] 3=Moderate Assistance 7=Complete IndependenceIRFPAI Quality Coding Scale 6 Independent with activity with or without an assistive device 5 Patient requires set up or clean up by helper. Patient completes activity by themselves 4 Supervision or touching assist (CGA). [place] provide cues , steadying assist 3 The helper provides less than half the effort to complete the activity 2 The helper provides more than half the effort to complete the activity 1 Dependent. The helper does all the effort to complete an activity 7 Patient refused to complete or attempt activity 9 The patient did not perform the activity before the current illness or injury 88 Not attempted due to Medical conditions or safety concerns Transfers (B, C, W/C) (FIM): 6 Scootin Rollin Supine to/from Sit: 6 Sit to/from Stand: 6 Bed to/from Chair: 6 this pat may be able to be up ad kati but c/o pain off and on at 8-9/10 level at which time he thrashes about and dose not demonstrate safe movement patterns. therefore this UNIFORM MAKER has not made pt. up ad kati as of yet Weight Bearing Right Lower Extremity: Right Weight Bearing/Tolerated Left Lower Extremity: Left Full Weight Bearing Gait Training Does the Patient Walk?: Yes Gait (FIM): 5 Distance (FIM): 3=150 ft (200x2) Gait Level of Assist: 5 Gait Persons Needed: 1 Gait Assistive Device: FWW ambulates holding right foot and toes up off floor and keeps right hip in extreme ext rotation Stair Training Stair Training: Handrails/: 2 handrails Stairs (FIM): 2 #of Steps: 4 Stairs: Pattern: Step to Level of Assist: 4 needs repeated explanation of sequence and reasoning ea time he attempts steps Exercises Supine Ex: Ankle pumps, Quad Set, Rolling, Glut sets, Heel Slides, Short Arc Quads, Scooting, Straight leg raise, Hip abd/add Supine Reps: 15 NuStep Minutes: 15 NuStep Workload: 5 Assessment Current Status: Good Progress PT Short Term Goals Short Term Goals Time Frame: Jul 18, 2017 Transfers (B,C,W/C) (FIM): 4 Gait (FIM): 4 Distance (FIM): 3=150 ft Gait Assistive Device: FWW Wheelchair (FIM): 6 Wheelchair distance (FIM): 3=150 ft Wheelchair Distance: 150 feet x2 PT Skilled Nursing Goals Internal Wholesaler Goals PT Internal Wholesaler Goals Time Frame: Aug 01, 2017 Transfers (B,C,W/C) (FIM): 6 Sit to Lying (QC): 6 Lying-Sitting on Side/Bed(QC): 6 Sit to Stand (QC): 6 Rollin Roll Left to Right (QC): 6 Chair/Yic-am-Evqgw Xfer(QC): 6 Car Transfer (QC): 6 Does the Patient Walk: Yes Gait (FIM): 6 Gait distance (FIM): 3=150 ft Walk 10 feet (QC): 6 Walk 10ft-Uneven Surface(QC): 6 Walk 50ft with 2 Turns (QC): 6 Walk 150 ft (QC): 6 Gait Level of Assist: 6 Gait Assistive Device: FWW Does the Pt use WC or Scooter?: No Stairs (FIM): 6 # of Steps: 12 1 Step (curb) (QC): 6 4 Steps (QC): 6 12 Steps (QC): 6 Picking up an Object (QC): 6 PT Plan Treatment/Plan Treatment Plan: Continue Plan of Care Treatment Plan: Bed Mobility, Education, Functional Activity Roney, Functional Strength, Group Therapy, Gait, Safety, Therapeutic Exercise, Transfers Treatment Duration: Aug 01, 2017 Frequency: At least 5 of 7 days/Wk (IRF) Estimated Hrs Per Day: 1.5 hours per day Patient and/or Family Agrees t: Yes Safety Risks/Education Patient Education: Gait Training, Transfer Techniques, Steps, Correct Positioning, Safety Issues Teaching Recipient: Patient Teaching Methods: Demonstration, Discussion Response to Teaching: Verbalize Understanding, Return Demonstration, Reinforcement Needed Time/GCodes Time In: 900 Time Out: 1000 Total Billed Treatment Time: 60 Total Billed Treatment 1,EX25m,FA15m,GT20m G Codes Necessary: No LUEBBER, ROSY A UNIFORM MAKER Jul 16, 2017 10:00
--- NOTE | 2017-07-16 11:37 | PM & R (SOAP) Progress Note ---
Subjective Time Seen by Provider: 10:45 Subjective/Events-last exam Patient was seen in his room this AM [place] out Patient Mod Independent for transfers Objective Exam Last Set of Vital Signs Vital Signs Date Time Temp Pulse Resp B/P (MAP) Pulse Ox O2 Delivery O2 Flow Rate FiO2 07/16/17 08:50 98.4 83 20 113/68 (83) 96 Room Air Capillary Refill : Less Than 3 Seconds I&O Intake and Output 07/16/17 00:00 Intake Total 1660 ml Output Total 1175 ml Balance 485 ml Intake Oral 1660 ml Output Urine Total 1175 ml # Voids 4 General: Alert, Oriented X3, Cooperative, No Acute Distress HEENT: Atraumatic, PERRLA, EOMI, Mucous Memb Moist/[place], Other (defect left parietal skull) Neck: Supple, No JVD Lungs: Clear to Auscultation Heart: Regular Rate Abdomen: Normal Bowel Sounds, Soft, No Tenderness Extremities: No Edema Skin: Other (incision rt hip healing well) Neuro: Other (Strength funtional BUES and 4+/5 LLE RT HIP flex 2/5 Quads 3/5 Dorsiflexion 4/5 ) Results Lab Laboratory Tests 07/14/17 05:14: Glucometer 152H 07/15/17 04:55: Glucometer 164H 07/16/17 06:06: Glucometer 150H Assessment/Plan Assessment Rt proximal Femur frx s/p IM nailing OSH [place] DM controlled with meds ETOH abuse Tobaccoism curreently abstaining HTN controlled 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 D/cd [place] Discharge set tentatively for Thursday07-20-17 to home in [facility] --Will confirm with BLANCA VILLAFANA MD Jul 16, 2017 11:37
--- NOTE | 2017-07-16 12:44 | Occupational Ther Daily Note ---
OT Current Status-Daily Note Subjective Pt alert, sitting in recliner. Pt stated that he had already had his shower, changed clothing and completed grooming earlier this morning. GALVIN asked nrsg if pt had completed this and nrsg confirmed that pt had completed. GALVIN discussed with pt that OT is required to be in the room during ADLs to help and or work with pt's on strategies for safety and independence. Pt stated that ' it is a no child daycare worker how to do bath and dress'. GALVIN then discussed transfers into/out of tub shower since he has one at home. Pt stated he did not want to use someone elses tub and that it doesn't make sense to work on a transfer that will cause pain. GALVIN attempted to have pt understand that it is for safety that the transfers need to be done during rehab so that he could become proficient at it here and we could monitor the pain prior to him going home. Pt refused to complete. GALVIN encouraged pt to complete ADLs during therapy prior to leaving. Pt commented under his breath "voyeur". KAMAR again tried to explain what OT was and what needed to be done during his rehab stay. Mental Status/Objective Patient Orientation: Person, Place, Time, Situation Functional [place] Measure 0=Not Assessed/NA 4=Minimal Assistance 1=Total Assistance 5=Supervision or Setup 2=Maximal Assistance 6=Modified [place] 3=Moderate Assistance 7=Complete [place] ADL-Treatment Functional [place] Measure 0=Not Assessed/NA 4=Minimal Assistance 1=Total Assistance 5=Supervision or Setup 2=Maximal Assistance 6=Modified [place] 3=Moderate Assistance 7=Complete IndependenceIRFPAI Quality Coding Scale 6 Independent with activity with or without an assistive device 5 Patient requires set up or clean up by helper. Patient completes activity by themselves 4 Supervision or touching assist (CGA). [place] provide cues , steadying assist 3 The helper provides less than half the effort to complete the activity 2 The helper provides more than half the effort to complete the activity 1 Dependent. The helper does all the effort to complete an activity 7 Patient refused to complete or attempt activity 9 The patient did not perform the activity before the current illness or injury 88 Not attempted due to Medical conditions or safety concerns Other Treatment Pt ambulated to therapy gym using FWW. Pt complete arm bike 15 min duration at 45 ball resistance to increase strength for daily functional tasks. Then completed 3 sets 10 reps of UE exercises with 3# wt. After therapy, pt sitting in recliner with call light/phone in reach. All needs met in room. Education OT Patient Education: Safety issues, Transfer techniques, Use of adapted equipment Teaching Recipient: Patient Teaching Methods: Discussion Response to Teaching: Unable to Comprehend, Reinforcement Needed OT Short Term Goals Short Term Goals Time Frame: Jul 11, 2017 Eating(FIM): 5 Grooming(FIM): 5 Bathing(FIM): 4 Upper Body Dressing(FIM): 5 Lower Body Dressing(FIM): 4 Toileting(FIM): 4 Transfers (B,C,W/C) (FIM): 4 Toilet/Commode Transfer(FIM): 4 Shower Transfer(FIM): 4 Additional Short Term Goals: 1-Demonstrate ADL Tasks, 2-Verbalize Understanding , 3-ImproveStrength/Roney 1=Demonstrate adherence to instructed precautions during ADL tasks. 2=Patient will verbalize/demonstrate understanding of assistive devices/ modifications for ADL. 3=Patient will improve strength/tolerance for activity to enable patient to perform ADL's. OT Senior Living Goals Ornamental Iron Worker Apprentice Goals Time Frame: Jul 25, 2017 Eating (FIM): 6 Eating (QC): 6 Groomin Oral Hygiene (QC): 5 Bathing(FIM): 5 Shower/Bathe Self (QC): 5 Upper Body Dressing(FIM): 5 Upper Body Dressing (QC): 5 Lower Body Dressing(FIM): 5 Lower Body Dressing (QC): 5 On/Off Footwear (QC): 5 Toileting(FIM): 6 Toileting Hygiene (QC): 6 Transfers (B,C,W/C) (FIM): 5 Toilet/Commode Transfer(FIM): 6 Toilet/Commode Transfer (QC): 6 Shower Transfer(FIM): 5 Additional Goals: 1-Demonstrate ADL Tasks, 2-Verbalize Understanding, 3- ImproveStrength/Roney 1=Demonstrate adherence to instructed precautions during ADL tasks. 2=Patient will verbalize/demonstrate understanding of assistive devices/ modifications for ADL. 3=Patient will improve strength/tolerance for activity to enable patient to perform ADL's. OT Education/Plan Discharge Recommendations Plan/Recommendations: Continue POC Treatment Plan/Plan of Care Patient would benefit from OT for education, treatment and training to promote independence in ADL's, mobility, safety and/or upper extremity function for ADL' s. Plan of Care: ADL Retraining, Caregiver Training, Functional Mobility, Group Exercise/Act as Ind, UE Funct Exercise/Act Treatment Duration: Jul 25, 2017 Frequency: At least 5 of 7 days/Wk (IRF) Estimated Hrs Per Day: 1.5 hours per day Agreement: Yes Rehab Potential: Good Time/GCodes Start Time: 07:15 Stop Time: 08:15 Total Time Billed (hr/min): 60 Billed Treatment Time 1 visit-FA 3 (40 min) EX 1 (20 min) MG ZARATE Jul 16, 2017 12:44
--- NOTE | 2017-07-16 13:28 | Occupational Ther Daily Note ---
OT Current Status-Daily Note Subjective Pt alert, sitting in recliner. Pt agreed to therapy. Pt c/o R LE being stiff when standing. Mental Status/Objective Patient Orientation: Person, Place, Time, Situation Functional [place] Measure 0=Not Assessed/NA 4=Minimal Assistance 1=Total Assistance 5=Supervision or Setup 2=Maximal Assistance 6=Modified [place] 3=Moderate Assistance 7=Complete [place] ADL-Treatment Functional [place] Measure 0=Not Assessed/NA 4=Minimal Assistance 1=Total Assistance 5=Supervision or Setup 2=Maximal Assistance 6=Modified [place] 3=Moderate Assistance 7=Complete IndependenceIRFPAI Quality Coding Scale 6 Independent with activity with or without an assistive device 5 Patient requires set up or clean up by helper. Patient completes activity by themselves 4 Supervision or touching assist (CGA). [place] provide cues , steadying assist 3 The helper provides less than half the effort to complete the activity 2 The helper provides more than half the effort to complete the activity 1 Dependent. The helper does all the effort to complete an activity 7 Patient refused to complete or attempt activity 9 The patient did not perform the activity before the current illness or injury 88 Not attempted due to Medical conditions or safety concerns Pt is able to ambulate from recliner to bathroom using FWW. Then completed toileting and transfer by self using FWW and grabbars. Pt then ambulated to sink using FWW, pushed FWW out of way then turned with aide of sink for support , to wash hands. Pt then ambulated to therapy gym with FWW. Pt completed resistive pinch and lumber driver tasks to increase strength in lumber driver for daily functional tasks. Pt then ambulated back to room using FWW. After therapy, pt sitting in recliner with call light/phone in reach. All needs met in room. OT Short Term Goals Short Term Goals Time Frame: Jul 11, 2017 Eating(FIM): 5 Grooming(FIM): 5 Bathing(FIM): 4 Upper Body Dressing(FIM): 5 Lower Body Dressing(FIM): 4 Toileting(FIM): 4 Transfers (B,C,W/C) (FIM): 4 Toilet/Commode Transfer(FIM): 4 Shower Transfer(FIM): 4 Additional Short Term Goals: 1-Demonstrate ADL Tasks, 2-Verbalize Understanding , 3-ImproveStrength/Roney 1=Demonstrate adherence to instructed precautions during ADL tasks. 2=Patient will verbalize/demonstrate understanding of assistive devices/ modifications for ADL. 3=Patient will improve strength/tolerance for activity to enable patient to perform ADL's. OT Alf Goals Alf Goals Time Frame: Jul 25, 2017 Eating (FIM): 6 Eating (QC): 6 Groomin Oral Hygiene (QC): 5 Bathing(FIM): 5 Shower/Bathe Self (QC): 5 Upper Body Dressing(FIM): 5 Upper Body Dressing (QC): 5 Lower Body Dressing(FIM): 5 Lower Body Dressing (QC): 5 On/Off Footwear (QC): 5 Toileting(FIM): 6 Toileting Hygiene (QC): 6 Transfers (B,C,W/C) (FIM): 5 Toilet/Commode Transfer(FIM): 6 Toilet/Commode Transfer (QC): 6 Shower Transfer(FIM): 5 Additional Goals: 1-Demonstrate ADL Tasks, 2-Verbalize Understanding, 3- ImproveStrength/Roney 1=Demonstrate adherence to instructed precautions during ADL tasks. 2=Patient will verbalize/demonstrate understanding of assistive devices/ modifications for ADL. 3=Patient will improve strength/tolerance for activity to enable patient to perform ADL's. OT Education/Plan Discharge Recommendations Plan/Recommendations: Continue POC Treatment Plan/Plan of Care Patient would benefit from OT for education, treatment and training to promote independence in ADL's, mobility, safety and/or upper extremity function for ADL' s. Plan of Care: ADL Retraining, Caregiver Training, Functional Mobility, Group Exercise/Act as Ind, UE Funct Exercise/Act Treatment Duration: Jul 25, 2017 Frequency: At least 5 of 7 days/Wk (IRF) Estimated Hrs Per Day: 1.5 hours per day Agreement: Yes Rehab Potential: Good Time/GCodes Start Time: 13:00 Stop Time: 13:30 Total Time Billed (hr/min): 30 Billed Treatment Time 1 visit-EX 2 (30 min) MG ZARATE Jul 16, 2017 13:28
--- NOTE | 2017-07-16 14:59 | Physical Therapy Daily Note ---
PT Daily Note-Current Subjective Pt. agrees to rx. States at first that he has pain 7/10 in right hip. After some discussion with this NETWORK ARCHITECT pt. states "well that may not be accurate" " I guess its not that high" Pain Numeric Pain Scale: 4 Location: Right Location Body Site: Hip Pain Description: Ache Transfers Functional [place] Measure 0=Not Assessed/NA 4=Minimal Assistance 1=Total Assistance 5=Supervision or Setup 2=Maximal Assistance 6=Modified [place] 3=Moderate Assistance 7=Complete IndependenceIRFPAI Quality Coding Scale 6 Independent with activity with or without an assistive device 5 Patient requires set up or clean up by helper. Patient completes activity by themselves 4 Supervision or touching assist (CGA). [place] provide cues , steadying assist 3 The helper provides less than half the effort to complete the activity 2 The helper provides more than half the effort to complete the activity 1 Dependent. The helper does all the effort to complete an activity 7 Patient refused to complete or attempt activity 9 The patient did not perform the activity before the current illness or injury 88 Not attempted due to Medical conditions or safety concerns all TRFs slow but SBA Weight Bearing Right Lower Extremity: Right Weight Bearing/Tolerated Left Lower Extremity: Left Full Weight Bearing Gait Training Gait Assistive Device: FWW gait 175 ft x 2 SBA to Mod I Exercises Supine Ex: Ankle pumps, Quad Set, Rolling, Glut sets, Heel Slides, Short Arc Quads, Scooting, Straight leg raise (ssist), Hip abd/add Supine Reps: 20 Seated Therapy Exercises: Sit to stand, Long arc quads Seated Reps: 10 Treatments emphasis on gait fluidity and equal step length PT Short Term Goals Short Term Goals Time Frame: Jul 18, 2017 Transfers (B,C,W/C) (FIM): 4 Gait (FIM): 4 Distance (FIM): 3=150 ft Gait Assistive Device: FWW Wheelchair (FIM): 6 Wheelchair distance (FIM): 3=150 ft Wheelchair Distance: 150 feet x2 PT Shelter Goals Pattern Painter Goals PT Pattern Painter Goals Time Frame: Aug 01, 2017 Transfers (B,C,W/C) (FIM): 6 Sit to Lying (QC): 6 Lying-Sitting on Side/Bed(QC): 6 Sit to Stand (QC): 6 Rollin Roll Left to Right (QC): 6 Chair/Gag-da-Yxnan Xfer(QC): 6 Car Transfer (QC): 6 Does the Patient Walk: Yes Gait (FIM): 6 Gait distance (FIM): 3=150 ft Walk 10 feet (QC): 6 Walk 10ft-Uneven Surface(QC): 6 Walk 50ft with 2 Turns (QC): 6 Walk 150 ft (QC): 6 Gait Level of Assist: 6 Gait Assistive Device: FWW Does the Pt use WC or Scooter?: No Stairs (FIM): 6 # of Steps: 12 1 Step (curb) (QC): 6 4 Steps (QC): 6 12 Steps (QC): 6 Picking up an Object (QC): 6 PT Plan Treatment/Plan Treatment Plan: Continue Plan of Care Treatment Plan: Bed Mobility, Education, Functional Activity Roney, Functional Strength, Group Therapy, Gait, Safety, Therapeutic Exercise, Transfers Treatment Duration: Aug 01, 2017 Frequency: At least 5 of 7 days/Wk (IRF) Estimated Hrs Per Day: 1.5 hours per day Patient and/or Family Agrees t: Yes Safety Risks/Education Patient Education: Gait Training, Transfer Techniques, Issued Written HEP Teaching Recipient: Patient Teaching Methods: Demonstration, Discussion Response to Teaching: Verbalize Understanding, Return Demonstration, Reinforcement Needed Time/GCodes Time In: 1430 Time Out: 1500 Total Billed Treatment Time: 30 Total Billed Treatment 1,EX20m,GT10m G Codes Necessary: ROSY Luu NETWORK ARCHITECT Jul 16, 2017 14:59
[2017-07-16 18:10] VITALS: BP 124/77
[2017-07-16] MEDS: ALFUZOSIN HCL 10 MG TAB (UROXATRAL) PO SCH (18:13)
[2017-07-16] MEDS: SIMvastatin 10 MG (ZOCOR) TAB PO SCH ×2 (20:22→20:28)
[2017-07-17] MEDS: PIOGLITAZONE 30MG (ACTOS) TAB PO SCH (06:02)
[2017-07-17] MEDS: SITAGLIPTIN PO SCH ×2 (06:02→17:40)
[2017-07-17] MEDS: MULTIVIT W/MINERALS TAB (THERAGRAN M) PO SCH (06:02)
[2017-07-17] MEDS: METFORMIN PO SCH ×2 (06:02→17:40)
[2017-07-17 06:06] VITALS: BP 100/63
[2017-07-17 07:55] VITALS: BP 127/68
--- NOTE | 2017-07-17 08:01 | Occupational Ther Daily Note ---
OT Current Status-Daily Note Subjective Pt alert, ambulating to bathroom by self when GALVIN entered room. GALVIN discussed attempting bathroom transfers with pt, pt stated that he doesn't see the need of doing the transfer here. GALVIN explained that it would be more beneficial here for safety and if there were difficulties that strategies could be problem solved. Pt continued to decline. Then discussed about pt waiting on GALVIN Thursday morning at 0700 to complete ADLs. Pt stated that whenever he gets up in the morning he has his routine and it doesn't make sense to him to wait for someone to take a shower and dress. Pt did agree to therapy. C/o pain , did not rated and did not want any medication for pain. Mental Status/Objective Patient Orientation: Person, Place, Time, Situation Functional [place] Measure 0=Not Assessed/NA 4=Minimal Assistance 1=Total Assistance 5=Supervision or Setup 2=Maximal Assistance 6=Modified [place] 3=Moderate Assistance 7=Complete [place] ADL-Treatment Pt and nrsg stated that pt took his shower early in am then got dressed and groomed by self. Pt was ambulating bathroom when GALVIN walked into room. Pt completed toileting and toilet transfer by self using FWW. Pt then ambulated to sink to wash hands. Functional [place] Measure 0=Not Assessed/NA 4=Minimal Assistance 1=Total Assistance 5=Supervision or Setup 2=Maximal Assistance 6=Modified [place] 3=Moderate Assistance 7=Complete IndependenceIRFPAI Quality Coding Scale 6 Independent with activity with or without an assistive device 5 Patient requires set up or clean up by helper. Patient completes activity by themselves 4 Supervision or touching assist (CGA). [place] provide cues , steadying assist 3 The helper provides less than half the effort to complete the activity 2 The helper provides more than half the effort to complete the activity 1 Dependent. The helper does all the effort to complete an activity 7 Patient refused to complete or attempt activity 9 The patient did not perform the activity before the current illness or injury 88 Not attempted due to Medical conditions or safety concerns Toileting (FIM): 6 Toileting Hygiene (QC): 6 Transfers (B, C, W/C) (FIM): 6 Toilet/Commode Transfer (FIM): 6 Toilet Transfer (QC): 6 Other Treatment Pt ambulated to therapy gym using FWW. Pt completed arm bike 15 min at 40 ball resistance without breaks to increase activity tolerance and strength for daily functional tasks. Pt then completed 1 set 10 rep of hand wt exercise to strengthen shldr. Pt c/o pain in L shldr and declined to do any more of that exercise. Pt then complete internal/external shldr rotation exercise with medium resistance theraband, 3 sets 10 reps. Pt then ambulated back to room with FWW. After therapy, pt sitting in recliner with call light/phone in reach. All needs met in room. Education OT Patient Education: Modified ADL techniques, Safety issues, Transfer techniques Teaching Recipient: Patient Teaching Methods: Discussion OT Short Term Goals Short Term Goals Time Frame: Jul 11, 2017 Eating(FIM): 5 Grooming(FIM): 5 Bathing(FIM): 4 Upper Body Dressing(FIM): 5 Lower Body Dressing(FIM): 4 Toileting(FIM): 4 Transfers (B,C,W/C) (FIM): 4 Toilet/Commode Transfer(FIM): 4 Shower Transfer(FIM): 4 Additional Short Term Goals: 1-Demonstrate ADL Tasks, 2-Verbalize Understanding , 3-ImproveStrength/Roney 1=Demonstrate adherence to instructed precautions during ADL tasks. 2=Patient will verbalize/demonstrate understanding of assistive devices/ modifications for ADL. 3=Patient will improve strength/tolerance for activity to enable patient to perform ADL's. OT Half-Way Goals Electric Needle Specialist Goals Time Frame: Jul 25, 2017 Eating (FIM): 6 Eating (QC): 6 Groomin Oral Hygiene (QC): 5 Bathing(FIM): 5 Shower/Bathe Self (QC): 5 Upper Body Dressing(FIM): 5 Upper Body Dressing (QC): 5 Lower Body Dressing(FIM): 5 Lower Body Dressing (QC): 5 On/Off Footwear (QC): 5 Toileting(FIM): 6 Toileting Hygiene (QC): 6 Transfers (B,C,W/C) (FIM): 5 Toilet/Commode Transfer(FIM): 6 Toilet/Commode Transfer (QC): 6 Shower Transfer(FIM): 5 Additional Goals: 1-Demonstrate ADL Tasks, 2-Verbalize Understanding, 3- ImproveStrength/Roney 1=Demonstrate adherence to instructed precautions during ADL tasks. 2=Patient will verbalize/demonstrate understanding of assistive devices/ modifications for ADL. 3=Patient will improve strength/tolerance for activity to enable patient to perform ADL's. OT Education/Plan Discharge Recommendations Plan/Recommendations: Continue POC Treatment Plan/Plan of Care Patient would benefit from OT for education, treatment and training to promote independence in ADL's, mobility, safety and/or upper extremity function for ADL' s. Plan of Care: ADL Retraining, Caregiver Training, Functional Mobility, Group Exercise/Act as Ind, UE Funct Exercise/Act Treatment Duration: Jul 25, 2017 Frequency: At least 5 of 7 days/Wk (IRF) Estimated Hrs Per Day: 1.5 hours per day Agreement: Yes Rehab Potential: Good Time/GCodes Start Time: 07:00 Stop Time: 08:00 Total Time Billed (hr/min): 60 Billed Treatment Time 1 visit-EX 3 (40 min) FA 1 920 min) MG ZARATE Jul 17, 2017 08:01
[2017-07-17] MEDS: carBAMazepine 100 MG (TEGretol) CHEW PO SCH (08:10)
[2017-07-17] MEDS: ASPIRIN E.C. 81 MG (ECOTRIN) TAB PO SCH (08:10)
--- NOTE | 2017-07-17 08:10 | Progress Note (SOAP) ---
Subjective Time Seen by Provider: 08:09 Subjective/Events-last exam PATIENT DOESN'T WANT TO TAKE HIS PAIN PILLS. pATIENT HAS A HISTORY OF DRUG ABUSEAND ALCOHOL ABUSE Right hip fracture Objective Exam Vital Signs Date Time Temp Pulse Resp B/P (MAP) Pulse Ox O2 Delivery O2 Flow Rate FiO2 07/17/17 06:06 98.3 58 16 100/63 (75) 95 Room Air 07/16/17 18:10 98.5 73 16 124/77 (93) 97 Room Air 07/16/17 08:50 98.4 83 20 113/68 (83) 96 Room Air 07/16/17 08:40 Room Air I & O 07/17/17 07:00 Intake Total 1850 ml Output Total 1500 ml Balance 350 ml Capillary Refill : Less Than 3 Seconds General Appearance: No Apparent Distress, WD/WN Results Lab Laboratory Tests 07/17/17 05:29: Glucometer 134H Assessment/Plan Assessment/Plan Assess & Plan/Chief Complaint right hip fracture. Posttraumatic seizure disorder. Ethanol abuse. Tobacco usage. . . Right hip fracture. Posttraumatic seizure disorder. Ethanol abuse. Tobacco usage. Patient weak and needs PT and OT. . 07/08/17 area Right hip fracture. Ethanol abuse. Tobacco usage. patient working hard. Patient states she is improving each day. Patient has not put on his pants yet by himself. . 07/09/17. Right hip fracture. Ethanol abuse. Tobacco usage. Patient ready to work today. sugars under good control. . 07/10/17 Right hip fracture. Ethanol abuse. Tobacco usage. patient improving each day. . 07/13/17. Right hip fracture. Ethanol abuse. Tobacco usage. Patient still not able to put on his pants. . 07/14/17 Right hip fracture. ethanol abuse. Tobacco usage. Diabetes under control posttraumatic seizure disorder. . 07/15/17. Right hip fracture. Ethanol abuse. Tobacco usage. Patient has no complaints. Difficulty in putting his pants on. . 07/16/17. Right hip fracture. Posttraumatic seizure disorder. Ethanol abuse. Tobacco usage. patient took a shower this morning. Patient had ymra removed yesterday. Patient doing better daily. . 07/17/17 patient did not have a good night sleep since he had some pain. Patient does not want to take pain pills due to his past history Right hip fracture. Posttraumatic seizure disorder. Ethanol abuse. Tobacco usage Clinical Quality Measures DVT/VTE Risk/Contraindication: Risk Factor Score Per Nursin RFS Level Per Nursing on Admit: 4+=Very High SHASHANK JACOB DO Jul 17, 2017 08:10
[2017-07-17] MEDS: lisINopril 20 MG (ZESTRIL) TAB PO SCH (08:12)
[2017-07-17] MEDS: SENNA W/DOCUSATE (SENOKOT S) TABLET PO SCH ×2 (08:12→21:25)
--- NOTE | 2017-07-17 08:39 | PM & R (SOAP) Progress Note ---
Subjective Time Seen by Provider: 07:55 Subjective/Events-last exam Patient was seen in Gym this AM Patient SBA ro Modified Independent for Transfers and gait with Walker Discharge remains tentatively set for 07-20 to home in [facility].Current meds reviewed Objective Exam Last Set of Vital Signs Vital Signs Date Time Temp Pulse Resp B/P (MAP) Pulse Ox O2 Delivery O2 Flow Rate FiO2 07/17/17 07:55 68 20 127/68 (87) 97 Room Air 07/17/17 06:06 98.3 Capillary Refill : Less Than 3 Seconds I&O Intake and Output 07/17/17 00:00 Intake Total 1930 ml Output Total 1375 ml Balance 555 ml Intake Oral 1930 ml Output Urine Total 1375 ml # Voids 5 General: Alert, Oriented X3, Cooperative, No Acute Distress HEENT: Atraumatic, PERRLA, EOMI, Mucous Memb Moist/[place], Other (defect left parietal skull) Neck: Supple, No JVD Lungs: Clear to Auscultation Heart: Regular Rate Abdomen: Normal Bowel Sounds, Soft, No Tenderness Extremities: No Edema Skin: Other (incision rt hip healing well) Neuro: Other (Strength funtional BUES and 4+/5 LLE RT HIP flex 2/5 Quads 3/5 Dorsiflexion 4/5 ) Results Lab Laboratory Tests 07/15/17 04:55: Glucometer 164H 07/16/17 06:06: Glucometer 150H 07/17/17 05:29: Glucometer 134H Assessment/Plan Assessment Rt proximal Femur frx s/p IM nailing OSH [place] DM controlled with meds ETOH abuse Tobaccoism curreently abstaining HTN controlled 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 D/cd Honey Discharge set tentatively for Thursday07-20-17 to home in [facility] --Will confirm with BLANCA VILLAFANA MD Jul 17, 2017 08:39
[2017-07-17] MEDS ORDERED: ACHD5005 PO (08:43)
--- NOTE | 2017-07-17 09:59 | Physical Therapy Daily Note ---
PT Daily Note-Current Subjective Pt. rates his pain at 8/10 in right hip. Again expresses his fear of ascending and descending stairs. Pain Numeric Pain Scale: 8 Location: Right Location Body Site: Hip Pain Description: Ache Transfers Functional [place] Measure 0=Not Assessed/NA 4=Minimal Assistance 1=Total Assistance 5=Supervision or Setup 2=Maximal Assistance 6=Modified [place] 3=Moderate Assistance 7=Complete IndependenceIRFPAI Quality Coding Scale 6 Independent with activity with or without an assistive device 5 Patient requires set up or clean up by helper. Patient completes activity by themselves 4 Supervision or touching assist (CGA). [place] provide cues , steadying assist 3 The helper provides less than half the effort to complete the activity 2 The helper provides more than half the effort to complete the activity 1 Dependent. The helper does all the effort to complete an activity 7 Patient refused to complete or attempt activity 9 The patient did not perform the activity before the current illness or injury 88 Not attempted due to Medical conditions or safety concerns Transfers (B, C, W/C) (FIM): 6 Scootin Rollin Supine to/from Sit: 6 Sit to/from Stand: 6 Weight Bearing Right Lower Extremity: Right Weight Bearing/Tolerated Left Lower Extremity: Left Full Weight Bearing Gait Training Does the Patient Walk?: Yes Gait (FIM): 6 Distance (FIM): 3=150 ft (x3) Gait Level of Assist: 6 Gait Persons Needed: 0 Gait Assistive Device: FWW pt. nearing up ad kati status. Stair Training Stair Training: Handrails/: 2 handrails Stairs (FIM): 2 #of Steps: 4 Stairs: Pattern: Step to Level of Assist: 4 Exercises Supine Ex: Ankle pumps, Quad Set, Rolling, Glut sets, Heel Slides, Short Arc Quads, Scooting, Straight leg raise, Hip abd/add Supine Reps: 15 Seated Therapy Exercises: Ankle pumps, Long arc quads, Hip abd/add Seated Reps: 15 NuStep Minutes: 10 NuStep Workload: 5 Assessment Current Status: Good Progress PT Short Term Goals Short Term Goals Time Frame: Jul 18, 2017 Transfers (B,C,W/C) (FIM): 4 Gait (FIM): 4 Distance (FIM): 3=150 ft Gait Assistive Device: FWW Wheelchair (FIM): 6 Wheelchair distance (FIM): 3=150 ft Wheelchair Distance: 150 feet x2 PT Laminator Hand Goals Laminator Hand Goals PT Laminator Hand Goals Time Frame: Aug 01, 2017 Transfers (B,C,W/C) (FIM): 6 Sit to Lying (QC): 6 Lying-Sitting on Side/Bed(QC): 6 Sit to Stand (QC): 6 Rollin Roll Left to Right (QC): 6 Chair/Ngv-bg-[place] Xfer(QC): 6 Car Transfer (QC): 6 Does the Patient Walk: Yes Gait (FIM): 6 Gait distance (FIM): 3=150 ft Walk 10 feet (QC): 6 Walk 10ft-Uneven Surface(QC): 6 Walk 50ft with 2 Turns (QC): 6 Walk 150 ft (QC): 6 Gait Level of Assist: 6 Gait Assistive Device: FWW Does the Pt use WC or Scooter?: No Stairs (FIM): 6 # of Steps: 12 1 Step (curb) (QC): 6 4 Steps (QC): 6 12 Steps (QC): 6 Picking up an Object (QC): 6 PT Plan Treatment/Plan Treatment Plan: Continue Plan of Care Treatment Plan: Bed Mobility, Education, Functional Activity [place], Functional Strength, Group Therapy, Gait, Safety, Therapeutic Exercise, Transfers Treatment Duration: Aug 01, 2017 Frequency: At least 5 of 7 days/Wk (IRF) Estimated Hrs Per Day: 1.5 hours per day Patient and/or Family Agrees t: Yes Safety Risks/Education Patient Education: Gait Training, Transfer Techniques, Steps, Correct Positioning, Disease Process, Safety Issues Teaching Recipient: Patient Teaching Methods: Demonstration, Discussion Response to Teaching: Verbalize Understanding, Return Demonstration, Reinforcement Needed Time/GCodes Time In: 900 Time Out: 1000 Total Billed Treatment Time: 60 Total Billed Treatment 1,FA15 m,EX25m,GT20m G Codes Necessary: No ROSY CHIANG WEB PRODUCTION ASSISTANT Jul 17, 2017 09:59
--- NOTE | 2017-07-17 14:32 | Therapy Group Daily Note ---
Therapy Daily Group Note Exercises Balance (dynamic seated balance), UE Exercise, Other Other/Notes Patient participated in group therapy in the common area of rehab. Patient ambulated SBA with FWW to the common area of rehab and placed at a table with the other patients. Each patient then had to introduce themselves, state where they were born and the funniest prank they ever played on someone or was played on them. Patient participated in the discussion and problem solving and socialization were encouraged with game play. After group therapy patient ambulated back to his room and placed in chair with call light and tray. Start Time: 13:00 Stop Time: 14:10 Total Billed Treatment Time: 70 Total Billed Treatment 1 visit GRP 70 min SANDRA DUVAL PT Jul 17, 2017 14:32
[2017-07-17] MEDS: ALFUZOSIN HCL 10 MG TAB (UROXATRAL) PO SCH (17:39)
[2017-07-17 18:30] VITALS: BP 110/72
[2017-07-17] MEDS: SIMvastatin 10 MG (ZOCOR) TAB PO SCH (21:25)
[2017-07-18 05:22] VITALS: BP 105/65
[2017-07-18] MEDS: PIOGLITAZONE 30MG (ACTOS) TAB PO SCH (08:45)
[2017-07-18] MEDS: SITAGLIPTIN PO SCH ×2 (08:45→17:16)
[2017-07-18] MEDS: METFORMIN PO SCH ×2 (08:45→17:16)
[2017-07-18] MEDS: SENNA W/DOCUSATE (SENOKOT S) TABLET PO SCH ×2 (08:45→20:56)
[2017-07-18] MEDS: lisINopril 20 MG (ZESTRIL) TAB PO SCH (08:45)
[2017-07-18] MEDS: carBAMazepine 100 MG (TEGretol) CHEW PO SCH (08:46)
[2017-07-18] MEDS: ASPIRIN E.C. 81 MG (ECOTRIN) TAB PO SCH (08:46)
[2017-07-18] MEDS: MULTIVIT W/MINERALS TAB (THERAGRAN M) PO SCH (08:46)
--- NOTE | 2017-07-18 11:51 | Physical Therapy Daily Note ---
PT Daily Note-Current Subjective Pt agreeable to treatment today. Pain Numeric Pain Scale: 0-No Pain Mental Status Patient Orientation: Person, Place, Time, Situation Transfers Functional [place] Measure 0=Not Assessed/NA 4=Minimal Assistance 1=Total Assistance 5=Supervision or Setup 2=Maximal Assistance 6=Modified [place] 3=Moderate Assistance 7=Complete IndependenceIRFPAI Quality Coding Scale 6 Independent with activity with or without an assistive device 5 Patient requires set up or clean up by helper. Patient completes activity by themselves 4 Supervision or touching assist (CGA). [place] provide cues , steadying assist 3 The helper provides less than half the effort to complete the activity 2 The helper provides more than half the effort to complete the activity 1 Dependent. The helper does all the effort to complete an activity 7 Patient refused to complete or attempt activity 9 The patient did not perform the activity before the current illness or injury 88 Not attempted due to Medical conditions or safety concerns Transfers (B, C, W/C) (FIM): 7 Scootin Rollin Supine to/from Sit: 7 Sit to/from Stand: 7 Bed to/from Chair: 7 Weight Bearing Right Lower Extremity: Right Weight Bearing/Tolerated Left Lower Extremity: Left Full Weight Bearing Gait Training Gait (FIM): 6 Distance (FIM): 3=150 ft Distance: 500ft Gait Level of Assist: 6 Gait Persons Needed: 1 Gait Assistive Device: FWW Stair Training Stair Training: Handrails/: 2 handrails Stairs (FIM): 2 #of Steps: 4 Stairs: Pattern: Step to Level of Assist: 4 Assessment Current Status: Good Progress Pt performed walk over uneven surface with FWW, car transfer, bed mobility, transfers, and ambulation with mod (I). PT Short Term Goals Short Term Goals Time Frame: Jul 18, 2017 Transfers (B,C,W/C) (FIM): 4 Gait (FIM): 4 Distance (FIM): 3=150 ft Gait Assistive Device: FWW Wheelchair (FIM): 6 Wheelchair distance (FIM): 3=150 ft Wheelchair Distance: 150 feet x2 PT Nursing Home Goals Cover Assembler Goals PT Nursing Home Goals Time Frame: Aug 01, 2017 Transfers (B,C,W/C) (FIM): 6 Gait (FIM): 6 Gait distance (FIM): 3=150 ft Gait Level of Assist: 6 Gait Assistive Device: FWW Stairs (FIM): 6 # of Steps: 12 PT Plan Treatment/Plan Treatment Plan: Continue Plan of Care Treatment Plan: Bed Mobility, Education, Functional Activity Roney, Functional Strength, Group Therapy, Gait, Safety, Therapeutic Exercise, Transfers Treatment Duration: Aug 01, 2017 Frequency: At least 5 of 7 days/Wk (IRF) Estimated Hrs Per Day: 1.5 hours per day Patient and/or Family Agrees t: Yes Time/GCodes Time In: 1109 Time Out: 1134 Total Billed Treatment Time: 25 Total Billed Treatment 1, gt 25' GERMANIA HECTOR PT Jul 18, 2017 11:51
[2017-07-18] MEDS: ALFUZOSIN HCL 10 MG TAB (UROXATRAL) PO SCH (17:16)
[2017-07-18 18:27] VITALS: BP 115/70
[2017-07-18] MEDS: SIMvastatin 10 MG (ZOCOR) TAB PO SCH (20:57)
[2017-07-19 05:23] VITALS: BP 113/74
[2017-07-19] MEDS: PIOGLITAZONE 30MG (ACTOS) TAB PO SCH (06:20)
[2017-07-19] MEDS: MULTIVIT W/MINERALS TAB (THERAGRAN M) PO SCH (06:20)
[2017-07-19] MEDS: METFORMIN PO SCH ×2 (06:20→17:15)
[2017-07-19] MEDS: SITAGLIPTIN PO SCH ×2 (06:20→17:15)
[2017-07-19] MEDS: SENNA W/DOCUSATE (SENOKOT S) TABLET PO SCH ×2 (08:18→19:42)
[2017-07-19] MEDS: lisINopril 20 MG (ZESTRIL) TAB PO SCH (08:18)
[2017-07-19] MEDS: carBAMazepine 100 MG (TEGretol) CHEW PO SCH (08:18)
[2017-07-19] MEDS: ASPIRIN E.C. 81 MG (ECOTRIN) TAB PO SCH (08:18)
[2017-07-19] MEDS: ALFUZOSIN HCL 10 MG TAB (UROXATRAL) PO SCH (17:15)
[2017-07-19 18:00] VITALS: BP 111/75
[2017-07-19] MEDS: SIMvastatin 10 MG (ZOCOR) TAB PO SCH (20:39)
[2017-07-20 05:07] VITALS: BP 99/64
[2017-07-20] MEDS: METFORMIN PO SCH (06:32)
[2017-07-20] MEDS: SITAGLIPTIN PO SCH (06:32)
[2017-07-20] MEDS: PIOGLITAZONE 30MG (ACTOS) TAB PO SCH (06:32)
[2017-07-20] MEDS: MULTIVIT W/MINERALS TAB (THERAGRAN M) PO SCH (06:32)
[2017-07-20] MEDS: SENNA W/DOCUSATE (SENOKOT S) TABLET PO SCH (07:46)
[2017-07-20] MEDS: lisINopril 20 MG (ZESTRIL) TAB PO SCH (07:46)
[2017-07-20] MEDS: carBAMazepine 100 MG (TEGretol) CHEW PO SCH (07:47)
[2017-07-20] MEDS: ASPIRIN E.C. 81 MG (ECOTRIN) TAB PO SCH (07:47)
--- NOTE | 2017-07-20 07:59 | Occupational Ther Daily Note ---
OT Current Status-Daily Note Subjective Pt alert, sitting in recliner. Pt declined completing any ADLs today. Pt stated that he took a shower yesterday and that he was not going to take a shower today because it would dry out his skin. Then refused to change clothing because the clothing he has on is more comfortable and easier to move. GALVIN attempted to explain the need for reassessment/FIM due to discharge today. Pt continued to refuse ADLs. Mental Status/Objective Functional [place] Measure 0=Not Assessed/NA 4=Minimal Assistance 1=Total Assistance 5=Supervision or Setup 2=Maximal Assistance 6=Modified [place] 3=Moderate Assistance 7=Complete [place] ADL-Treatment FIM scores per pt report and nrsg report. Functional [place] Measure 0=Not Assessed/NA 4=Minimal Assistance 1=Total Assistance 5=Supervision or Setup 2=Maximal Assistance 6=Modified [place] 3=Moderate Assistance 7=Complete IndependenceIRFPAI Quality Coding Scale 6 Independent with activity with or without an assistive device 5 Patient requires set up or clean up by helper. Patient completes activity by themselves 4 Supervision or touching assist (CGA). [place] provide cues , steadying assist 3 The helper provides less than half the effort to complete the activity 2 The helper provides more than half the effort to complete the activity 1 Dependent. The helper does all the effort to complete an activity 7 Patient refused to complete or attempt activity 9 The patient did not perform the activity before the current illness or injury 88 Not attempted due to Medical conditions or safety concerns Eating (FIM): 7 (Pt able to set self up and uses regular utensils to feed self. ) Eating (QC): 6 Grooming (FIM): 6 (Standing at sink using FWW, pt able to complete.) Oral Hygiene (QC): 6 Bathing (FIM): 6 (Using grabbar, shower bench and hand held shower pt able to complete.) Bathing Location: L Arm, R Arm, L Upper Leg, R Upper Leg, L Lower Leg ( including foot), R Lower Leg (including foot), Chest, Abdomen, Buttocks, Perineal Area Shower/Bathe Self (QC): 6 Upper Body (FIM): 6 (Using FWW pt is able to retrieve clothing and dons/doffs by self.) Upper Body Dressing (QC): 6 Lower Body Dressing (FIM): 6 (Using FWW pt is able to retrieve clothing and dons/doffs by self.) Lower Body Dressing (QC): 6 On/Off Footwear (QC): 6 Toileting (FIM): 6 (Using FWW and grabbars, pt is able to complete toileting by self.) Toileting Hygiene (QC): 6 Transfers (B, C, W/C) (FIM): 6 (Using FWW, pt able to complete by self.) Toilet/Commode Transfer (FIM): 6 (Using FWW and grabbars, pt able to complete.) Toilet Transfer (QC): 6 Shower Transfer(FIM): 6 (Using grabbars, shower bench and hand held shower pt able to complete.) Other Treatment Pt ambulated to therapy gym with FWW. Pt completed arm bike starting at 40 ball resistance then pt decreased tension to 35 ball resistance for 15 min to increase strength and endurance for daily functional tasks. Pt began UE strengthening with 3# wt then pt stated that it was making his L shldr 'crunch' so he stopped. Pt then ambulated back to room using FWW. After therapy, pt sitting in recliner with call light/phone in reach. All needs met in room. OT Short Term Goals Short Term Goals Time Frame: Jul 11, 2017 Eating(FIM): 5 Grooming(FIM): 5 Bathing(FIM): 4 Upper Body Dressing(FIM): 5 Lower Body Dressing(FIM): 4 Toileting(FIM): 4 Transfers (B,C,W/C) (FIM): 4 Toilet/Commode Transfer(FIM): 4 Shower Transfer(FIM): 4 Additional Short Term Goals: 1-Demonstrate ADL Tasks, 2-Verbalize Understanding , 3-ImproveStrength/Roney 1=Demonstrate adherence to instructed precautions during ADL tasks. 2=Patient will verbalize/demonstrate understanding of assistive devices/ modifications for ADL. 3=Patient will improve strength/tolerance for activity to enable patient to perform ADL's. OT Wind Up Operator Goals Intermediate Goals Time Frame: Jul 25, 2017 Eating (FIM): 6 Eating (QC): 6 Groomin Oral Hygiene (QC): 5 Bathing(FIM): 5 Shower/Bathe Self (QC): 5 Upper Body Dressing(FIM): 5 Upper Body Dressing (QC): 5 Lower Body Dressing(FIM): 5 Lower Body Dressing (QC): 5 On/Off Footwear (QC): 5 Toileting(FIM): 6 Toileting Hygiene (QC): 6 Transfers (B,C,W/C) (FIM): 5 Toilet/Commode Transfer(FIM): 6 Toilet/Commode Transfer (QC): 6 Shower Transfer(FIM): 5 Additional Goals: 1-Demonstrate ADL Tasks, 2-Verbalize Understanding, 3- ImproveStrength/Roney 1=Demonstrate adherence to instructed precautions during ADL tasks. 2=Patient will verbalize/demonstrate understanding of assistive devices/ modifications for ADL. 3=Patient will improve strength/tolerance for activity to enable patient to perform ADL's. OT Education/Plan Discharge Recommendations Plan/Recommendations: Continue POC Treatment Plan/Plan of Care Patient would benefit from OT for education, treatment and training to promote independence in ADL's, mobility, safety and/or upper extremity function for ADL' s. Plan of Care: ADL Retraining, Caregiver Training, Functional Mobility, Group Exercise/Act as Ind, UE Funct Exercise/Act Treatment Duration: Jul 25, 2017 Frequency: At least 5 of 7 days/Wk (IRF) Estimated Hrs Per Day: 1.5 hours per day Agreement: Yes Rehab Potential: Good Time/GCodes Start Time: 07:00 Stop Time: 07:45 Total Time Billed (hr/min): 45 Billed Treatment Time 1 visit-FA 1 (20 min) EX 2 (25 min) MG ZARATE Jul 20, 2017 07:59
--- NOTE | 2017-07-20 08:29 | Progress Note (SOAP) ---
Subjective Time Seen by Provider: 08:27 Subjective/Events-last exam patient to be discharged today. Patient to move to [facility]. brother to pick him up today Objective Exam Vital Signs Date Time Temp Pulse Resp B/P (MAP) Pulse Ox O2 Delivery O2 Flow Rate FiO2 07/20/17 05:07 97.5 64 18 99/64 (76) 96 Room Air 07/19/17 20:41 Room Air 07/19/17 18:00 98.2 72 18 111/75 (87) 97 Room Air 07/19/17 09:00 Room Air I & O 07/20/17 07:00 Intake Total 1900 ml Balance 1900 ml Capillary Refill : Less Than 3 Seconds General Appearance: No Apparent Distress, WD/WN Results Lab Laboratory Tests 07/20/17 03:37: Glucometer 119H Assessment/Plan Assessment/Plan Assess & Plan/Chief Complaint right hip fracture. Posttraumatic seizure disorder. Ethanol abuse. Tobacco usage. . . Right hip fracture. Posttraumatic seizure disorder. Ethanol abuse. Tobacco usage. Patient weak and needs PT and OT. . 07/08/17 area Right hip fracture. Ethanol abuse. Tobacco usage. patient working hard. Patient states she is improving each day. Patient has not put on his pants yet by himself. . 07/09/17. Right hip fracture. Ethanol abuse. Tobacco usage. Patient ready to work today. sugars under good control. . 07/10/17 Right hip fracture. Ethanol abuse. Tobacco usage. patient improving each day. . 07/13/17. Right hip fracture. Ethanol abuse. Tobacco usage. Patient still not able to put on his pants. . 07/14/17 Right hip fracture. ethanol abuse. Tobacco usage. Diabetes under control posttraumatic seizure disorder. . 07/15/17. Right hip fracture. Ethanol abuse. Tobacco usage. Patient has no complaints. Difficulty in putting his pants on. . 07/16/17. Right hip fracture. Posttraumatic seizure disorder. Ethanol abuse. Tobacco usage. patient took a shower this morning. Patient had myra removed yesterday. Patient doing better daily. . 07/17/17 patient did not have a good night sleep since he had some pain. Patient does not want to take pain pills due to his past history Right hip fracture. Posttraumatic seizure disorder. Ethanol abuse. Tobacco usage . . 07/20/17. right hip fracture. Posttraumatic seizure disorder. Ethanol abuse. Tobacco usage. Patient to be discharged today and excited Clinical Quality Measures DVT/VTE Risk/Contraindication: Risk Factor Score Per Nursin RFS Level Per Nursing on Admit: 4+=Very High SHASHANK JACOB DO Jul 20, 2017 08:28
--- NOTE | 2017-07-20 09:43 | Physical Therapy Daily Note ---
PT Daily Note-Current Subjective Pt. agrees to rx. Feels he is ready to [place]. States his brother will pick him up and give him a ride. Pain Numeric Pain Scale: 0-No Pain Mental Status Patient Orientation: Person, Place, Time, Situation Transfers Functional [place] Measure 0=Not Assessed/NA 4=Minimal Assistance 1=Total Assistance 5=Supervision or Setup 2=Maximal Assistance 6=Modified [place] 3=Moderate Assistance 7=Complete IndependenceIRFPAI Quality Coding Scale 6 Independent with activity with or without an assistive device 5 Patient requires set up or clean up by helper. Patient completes activity by themselves 4 Supervision or touching assist (CGA). [place] provide cues , steadying assist 3 The helper provides less than half the effort to complete the activity 2 The helper provides more than half the effort to complete the activity 1 Dependent. The helper does all the effort to complete an activity 7 Patient refused to complete or attempt activity 9 The patient did not perform the activity before the current illness or injury 88 Not attempted due to Medical conditions or safety concerns Transfers (B, C, W/C) (FIM): 6 Scootin Rollin Roll Left to Right (QC): 6 Supine to/from Sit: 6 Sit to/from Stand: 6 Sit to Lying (QC): 6 Sit to Stand (QC): 6 Chair/Zrt-ta-Cxnbr Xfer(QC): 6 Bed to/from Chair: 6 Car Transfer (QC): 6 Weight Bearing Right Lower Extremity: Right Weight Bearing/Tolerated Left Lower Extremity: Left Full Weight Bearing Gait Training Does the Patient Walk?: Yes Gait (FIM): 6 Distance (FIM): 3=150 ft (200plus) Walk 10 feet (QC): 6 Walk 50 ft with 2 Turns(QC): 6 Walk 150 ft (QC): 6 Walking 10ft/uneven surface-QC: 6 Gait Level of Assist: 6 Gait Persons Needed: 0 Gait Assistive Device: FWW much improved pattern, more fluid Wheelchair Training Does the Pt Use a Wheelchair?: No Stair Training Stair Training: Handrails/: 2 handrails Stairs (FIM): 6 #of Steps: 12 1 Step (curb) (QC): 6 4 Steps (QC): 6 12 Steps (QC): 6 Stairs: Pattern: Step to Level of Assist: 6 Balance Special Test Comments did not complete, safety risk Exercises NuStep Minutes: 10 NuStep Workload: 7 Assessment Current Status: Good Progress pt. with poor judgement at times , related to past head trauma and ETOH abuse PT Short Term Goals Short Term Goals Time Frame: Jul 18, 2017 Transfers (B,C,W/C) (FIM): 4 Gait (FIM): 4 Distance (FIM): 3=150 ft Gait Assistive Device: FWW Wheelchair (FIM): 6 Wheelchair distance (FIM): 3=150 ft Wheelchair Distance: 150 feet x2 PT Alf Goals Promotion Officer Goals PT Promotion Officer Goals Time Frame: Aug 01, 2017 Transfers (B,C,W/C) (FIM): 6 Sit to Lying (QC): 6 Lying-Sitting on Side/Bed(QC): 6 Sit to Stand (QC): 6 Rollin Roll Left to Right (QC): 6 Chair/Wis-in-Ojvzl Xfer(QC): 6 Car Transfer (QC): 6 Does the Patient Walk: Yes Gait (FIM): 6 Gait distance (FIM): 3=150 ft Walk 10 feet (QC): 6 Walk 10ft-Uneven Surface(QC): 6 Walk 50ft with 2 Turns (QC): 6 Walk 150 ft (QC): 6 Gait Level of Assist: 6 Gait Assistive Device: FWW Does the Pt use WC or Scooter?: No Stairs (FIM): 6 # of Steps: 12 1 Step (curb) (QC): 6 4 Steps (QC): 6 12 Steps (QC): 6 Picking up an Object (QC): 6 PT Plan Treatment/Plan Treatment Plan: Continue Plan of Care Treatment Plan: Bed Mobility, Education, Functional Activity Roney, Functional Strength, Group Therapy, Gait, Safety, Therapeutic Exercise, Transfers Treatment Duration: Aug 01, 2017 Frequency: At least 5 of 7 days/Wk (IRF) Estimated Hrs Per Day: 1.5 hours per day Patient and/or Family Agrees t: Yes Safety Risks/Education Patient Education: Gait Training, Transfer Techniques, Steps, Correct Positioning, Disease Process, Safety Issues Teaching Recipient: Patient Teaching Methods: Demonstration, Discussion Response to Teaching: Verbalize Understanding, Return Demonstration, Reinforcement Needed Time/GCodes Time In: 905 Time Out: 935 Total Billed Treatment Time: 30 Total Billed Treatment 1,FA20,EX10 G Codes Necessary: ROSY Luu TURBINE MEASUREMENTS ENGINEER Jul 20, 2017 09:43
[2017-07-20 14:13] VITALS: BP 99/64
--- NOTE | 2017-07-20 18:18 | PM & R (SOAP) Progress Note ---
Subjective Time Seen by Provider: 12:00 Subjective/Events-last exam Patient discharged to home in [facility] Current meds reviewed Patient Modified Independent for transfers Patient will have f/u with ortho and PCP in [place] See orders. Objective Exam Last Set of Vital Signs Vital Signs Date Time Temp Pulse Resp B/P (MAP) Pulse Ox O2 Delivery O2 Flow Rate FiO2 07/20/17 14:13 64 18 99/64 96 Room Air 07/20/17 05:07 97.5 Capillary Refill : Less Than 3 Seconds I&O Intake and Output 07/20/17 00:00 Intake Total 1880 ml Output Total 1700 ml Balance 180 ml Intake Oral 1880 ml Output Urine Total 1700 ml # Voids 5 # Bowel Movements 1 General: Alert, Oriented X3, Cooperative, No Acute Distress HEENT: Atraumatic, PERRLA, EOMI, Mucous Memb Moist/Baker, Other (defect left parietal skull) Neck: Supple, No JVD Lungs: Clear to Auscultation Heart: Regular Rate Abdomen: Normal Bowel Sounds, Soft, No Tenderness Extremities: No Edema Skin: Other (incision rt hip healing well) Neuro: Other (Strength funtional BUES and 4+/5 LLE RT HIP flex 2/5 Quads 3/5 Dorsiflexion 4/5 ) Results Lab Laboratory Tests 07/19/17 06:19: Glucometer 134H 07/20/17 03:37: Glucometer 119H Assessment/Plan Assessment Rt proximal Femur frx s/p IM nailing [facility] [place] DM controlled with meds ETOH abuse Tobaccoism curreently abstaining HTN controlled 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 D/cd [place] Discharge set tentatively for Thursday07-20-17 to home in [facility] --Will confirm with BLANCA VILLAFANA MD Jul 20, 2017 18:18
--- NOTE | 2017-07-21 09:01 | Therapy Team Discharge Summary ---
Therapy Discharge Summary Discharge Recommendations Date of Discharge Jul 20, 2017 at 14:23 Therapy D/C Recommendations: Home Independently Occupational Therapy Pt. has been seen by occupational therapy to increase overall strength and independence. Pt. has made progress in all areas. Pt's final FIM and discharge scores are self and nursing reported, as pt decides what he wants to do on this date. Pt. has met all goals. Pt. is discharging to former setting. Decreased Activ Tolerance PT Halfway Goals Manager Training And Development Goals PT Halfway Goals Time Frame: Aug 01, 2017 Transfers (B,C,W/C) (FIM): 6 Roll Left to Right (QC): 6 Sit to Lying (QC): 6 Lying-Sitting on Side/Bed(QC): 6 Sit to Stand (QC): 6 Chair/Wdp-gw-Rwkog Xfer(QC): 6 Car Transfer (QC): 6 Does the Patient Walk: Yes Gait (FIM): 6 Gait distance (FIM): 3=150 ft Walk 10 feet (QC): 6 Walk 10ft-Uneven Surface(QC): 6 Walk 50ft with 2 Turns (QC): 6 Walk 150 ft (QC): 6 Gait Level of Assist: 6 Gait Assistive Device: FWW Does the Pt use WC or Scooter?: No Stairs (FIM): 6 # of Steps: 12 1 Step (curb) (QC): 6 4 Steps (QC): 6 12 Steps (QC): 6 Picking up an Object (QC): 6 OT Manager Training And Development Goals Manager Training And Development Goals Time Frame: Jul 25, 2017 Eating (FIM): 6 (met) Eating (QC): 6 (met) Oral Hygiene (QC): 5 (met) Grooming(FIM): 5 (met) Bathing(FIM): 5 (met) Shower/Bathe Self (QC): 5 (met) Upper Body Dressing(FIM): 5 (met) Upper Body Dressing (QC): 5 (met) Lower Body Dressing(FIM): 5 (met) Lower Body Dressing (QC): 5 (met) On/Off Footwear (QC): 5 (met) Toileting(FIM): 6 (met) Toileting Hygiene (QC): 6 (met) Transfers (B,C,W/C) (FIM): 5 (met) Toilet/Commode Transfer(FIM): 6 (met) Toilet/Commode Transfer (QC): 6 (met) Shower Transfer(FIM): 5 (met) Additional Goals: 1-Demonstrate ADL Tasks, 2-Verbalize Understanding, 3- ImproveStrength/Roney 1=Demonstrate adherence to instructed precautions during ADL tasks. 2=Patient will verbalize/demonstrate understanding of assistive devices/ modifications for ADL. 3=Patient will improve strength/tolerance for activity to enable patient to perform ADL's. ASHELY MARTINEZ OT Jul 21, 2017 09:01
--- NOTE | 2017-07-21 11:34 | Therapy Team Discharge Summary ---
Therapy Discharge Summary Discharge Recommendations Date of Discharge Jul 20, 2017 at 14:23 Therapy D/C Recommendations: Home Independently Physical Therapy This patient has been seen on ARU for skilled PT intervnetion post fall with hip fracture with repair. Upon admission, he required mod assist with transfers , only able to walk short distances with fWW with assist and was unsafe/unable to attempt a stair. He was indep prior to this fall. Treatment has consisted of transfer training, gait training/progression, stair training and functional strengthening/balance and safety education. He has made excellent progress and is mod indep with gait and tranfers at this time. Recommend [facility] PT to follow. Discharge from ARU at this time. Occupational Therapy Decreased Activ Tolerance PT Prison Goals Rn Invasive Goals PT Prison Goals Time Frame: Aug 01, 2017 Transfers (B,C,W/C) (FIM): 6 (met) Roll Left to Right (QC): 6 (met) Sit to Lying (QC): 6 (met) Lying-Sitting on Side/Bed(QC): 6 (met) Sit to Stand (QC): 6 (met) Chair/Kmt-qz-Qviim Xfer(QC): 6 (met) Car Transfer (QC): 6 (met) Does the Patient Walk: Yes Gait (FIM): 6 (met) Gait distance (FIM): 3=150 ft Walk 10 feet (QC): 6 (met) Walk 10ft-Uneven Surface(QC): 6 (met) Walk 50ft with 2 Turns (QC): 6 (met) Walk 150 ft (QC): 6 (met) Gait Level of Assist: 6 Gait Assistive Device: FWW Does the Pt use WC or Scooter?: No Stairs (FIM): 6 (met) # of Steps: 12 1 Step (curb) (QC): 6 4 Steps (QC): 6 (met) 12 Steps (QC): 6 (met) Picking up an Object (QC): 6 (DNT; safety concerns) Pt has met all LTG's to a satisfactory level. OT Prison Goals Prison Goals Time Frame: Jul 25, 2017 Eating (FIM): 6 (met) Eating (QC): 6 (met) Oral Hygiene (QC): 5 (met) Grooming(FIM): 5 (met) Bathing(FIM): 5 (met) Shower/Bathe Self (QC): 5 (met) Upper Body Dressing(FIM): 5 (met) Upper Body Dressing (QC): 5 (met) Lower Body Dressing(FIM): 5 (met) Lower Body Dressing (QC): 5 (met) On/Off Footwear (QC): 5 (met) Toileting(FIM): 6 (met) Toileting Hygiene (QC): 6 (met) Transfers (B,C,W/C) (FIM): 5 (met) Toilet/Commode Transfer(FIM): 6 (met) Toilet/Commode Transfer (QC): 6 (met) Shower Transfer(FIM): 5 (met) Additional Goals: 1-Demonstrate ADL Tasks, 2-Verbalize Understanding, 3- ImproveStrength/Roney 1=Demonstrate adherence to instructed precautions during ADL tasks. 2=Patient will verbalize/demonstrate understanding of assistive devices/ modifications for ADL. 3=Patient will improve strength/tolerance for activity to enable patient to perform ADL's. MG URIBE PT Jul 21, 2017 11:34
--- NOTE | 2017-07-21 23:46 | DISCHARGE SUMMARY ---
DATE OF SERVICE: HISTORY OF PRESENT ILLNESS: The patient is a 62-year-old male with a history of posttraumatic seizure disorder associated with falls with most recent fall accounting for closed fracture of the right hip. The patient was admitted at an outside hospital in [place], [place], for repair with orthopedics. The patient had an elevated blood alcohol level upon initial assessment and has a history of ethanol abuse and tobacco abuse. The patient had been in an assisted living unit until recently and then went out on his own. He got rid of his guardian and granted a room in a hotel in [place], [place]. Ethanol blood levels indicated he was intoxicated. Prior level of function, he had been independent prior to this. He had a decline in his functional independence and was referred to inpatient rehabilitation unit [facility] for orthopedic rehabilitation. PAST MEDICAL HISTORY: Posttraumatic seizure disorder, on Tegretol, associated with a fall on ice with a left skull fracture in 2011 with intracerebral hemorrhage and subarachnoid hemorrhage. He has had some residual impulsivity and mild cognitive deficits due to this, diabetes mellitus, hyperlipidemia, and hypertension. He lives alone, has a brother in [place], [place]. He is retired after 25 years working [employer] in [place]. MEDICAL COURSE: He continued on his Lortab for pain control as well as his Tegretol and medication for diabetes and his statin as well as his Flomax. He was followed by Dr. Wesley and Dr. Stringer while on rehab unit. He was afebrile during his stay. Blood pressure on 07/20/2017, was 99/64, respirations 18, pulse 64, and O2 sat 96% on room air. Accu-Cheks from 07/15/2017 to 07/20/2017, varied between 119 and 164. Chemistry on 07/07/2017, showed normal electrolytes, BUN and creatinine. Blood glucose was 140. Total protein was borderline low at 5.9, and HDL cholesterol low at 25. REHABILITATION COURSE: He did progress well with his therapies. He had increased strength and endurance. Speech Therapy assessed him upon admission to rehab unit. They noted some residual mild cognitive deficits and impulsivity, which was chronic and they signed off. They felt that he would be functional for his ADLs and mobility skills. His incision healed well. His myra were removed prior to discharge. OT notes that he made good progress with therapies. Upon admission, he was mod assist for bathing, max assist for lower body dressing, min assist for upper body dressing, mod assist for toilet transfers, and max assist for toileting hygiene. Upon discharge, he is modified independent for eating, setup for grooming, bathing and dressing. He could have made some further improvement, but since his mobility improved to modified independent, he was anxious for discharge. He will have assistance from home health care and his brother upon discharge. He may benefit eventually from going back to a more formal assisted living setting. PT notes upon admission, he was mod assist for transfers and bed mobility, min assist for ambulation short distances with a front wheel walker. Upon discharge, he is modified independent for transfers, bed mobility, and ambulation with a front wheel walker. DISCHARGE INSTRUCTIONS: He will have followup with his PCP and Orthopedics in [place], [place]. Continue current diet, and home Accu-Cheks. DISCHARGE MEDICATIONS: Hydrocodone and acetaminophen 5/325 one tablet p.o. q.4 hours p.r.n. moderate pain, ASA 81 mg p.o. daily, Tegretol 100 mg p.o. daily, lisinopril 20 mg p.o. daily, lovastatin 20 mg p.o. each day at bedtime, metoprolol 25 mg p.o. daily, multivitamins 1 tablet p.o. daily, Actos 15 mg p.o. daily, Janumet XR one tablet p.o. b.i.d., and Flomax 0.4 mg p.o. daily. DISCHARGE DIAGNOSES: 1. Rehabilitation ambulatory dysfunction secondary to fall with resulting closed proximal left femur fracture, status post intramedullary nailing at an outside hospital in [place], [place]. 2. Ethanol abuse, currently abstaining. 3. Tobaccoism, currently abstaining. 4. Diabetes mellitus, type 2. 5. Hypertension, currently normotensive with medications. 6. History of traumatic brain injury with seizure disorder with residual cognitive deficits in terms of memory and impulsivity. due to sequelae of ICH and SAH 7. Hyperlipidemia, on statin. 8. History of intracerebral hemorrhage and subarachnoid hemorrhage associated with left skull fracture in 2011. 9. Postop constipation 10. Cognitive deficits posttraumatic CONDITION AT DISCHARGE: Improved and stable. PROGNOSIS: Rehab prognosis appears good for continued improvement with home health care and family assistance; however, due to history of TBI, fall, fracture and other comorbidities including tobacco and alcohol abuse, he may be best served by being in a more formal assisted living setting in the future. Job ID: [id number] DocumentID: [id number] Dictated Date: 07/21/2017 11:19:10 [employer] Watchman Date: 07/21/2017 23:45:54 Dictated By: BLANCA WESLEY MD MTDD
== END 2017-07-20 14:23 | disposition home or self-care (01) | DRG 561 ==
PROVIDERS: ADMIT Physical Medicine & Rehabilitation; ATTEND Physical Medicine & Rehabilitation
DX: S72.001D Fracture of unspecified part of neck of right femur, subsequent encounter for closed fracture with routine healing (principal); S02.91XS Unspecified fracture of skull, sequela; S06.2X9S Diffuse traumatic brain injury with loss of consciousness of unspecified duration, sequela; S06.6X9S Traumatic subarachnoid hemorrhage with loss of consciousness of unspecified duration, sequela; G40.909 Epilepsy, unspecified, not intractable, without status epilepticus; F09 Unspecified mental disorder due to known physiological condition; E11.9 Type 2 diabetes mellitus without complications; E78.5 Hyperlipidemia, unspecified; F10.10 Alcohol abuse, uncomplicated; I10 Essential (primary) hypertension; K59.09 Other constipation; F17.210 Nicotine dependence, cigarettes, uncomplicated; Z79.84 Long term (current) use of oral hypoglycemic drugs
CPT/HCPCS: 36415; 80053; 80061; 82962